=== PATIENT | male | born 1960 | race Caucasian/White ===

== ENCOUNTER 2018-07-12 08:53 | Outpatient (CLI) | payer OTHER, SELFPAY ==
[2018-07-12 11:35] LABS: ALT 67 U/L (12-78); AST 40 U/L (15-37); Albumin 3.7 g/dL (3.4-5.0); Alkaline Phosphatase 57 U/L (46-116); Anion Gap 8.7 mmol/L (3-11); BUN 11 mg/dL (7-18); Bilirubin, Total 0.5 mg/dL (0.2-1.0); CO2 26.3 mmol/L (21.0-32.0); CREATININE 1.05 mg/dL (0.70-1.30); Calcium 9.1 mg/dL (8.5-10.1); Chloride 102 mmol/L (98-107); Cholesterol 157 mg/dL (50-200); Glucose 107 mg/dL (70-100); HDL Cholesterol 36 mg/dL (40-60); LDL CHOLESTEROL 107 mg/dL (<100); Potassium 4.2 mmol/L (3.5-5.1); Sodium 137 mmol/L (136-145); Total Protein 6.9 g/dL (6.4-8.2); Triglyceride 96 mg/dL (30-150); Vitamin B12 426 pg/mL (193-986)
== END 2018-07-12 09:13 ==
PROVIDERS: PCP Family Medicine; Visit Provider Family Medicine
DX: I10 Essential (primary) hypertension (principal); K21.9 Gastro-esophageal reflux disease without esophagitis
CPT/HCPCS: 36415; 80053; 80061; 83721; 82607

== ENCOUNTER 2018-10-05 00:59 | Outpatient (CLI) | payer OTHER, SELFPAY ==
--- NOTE | 2018-10-05 07:50 | DI.RAD_ITS ---
SYMPTOM/DIAGNOSIS: CHRONIC COUGH, R05, SYNCOPE, R55, CONTACT WITH HAZARD SUBSTANCE, CARBON MONOXIDE EXPOSURE, Z77.29 PA AND LATERAL CHEST: No prior comparison chest xrays are available. The heart size is normal. There is no mediastinal widening. There is mild respiratory motion. The lungs appear clear. IMPRESSION: Negative chest xray.
[2018-10-05 08:10] LABS: Carboxyhemoglobin 0.9 %
== END 2018-10-05 01:19 ==
PROVIDERS: PCP Family Medicine; Visit Provider Emergency Medicine
DX: R05 Cough (principal); R55 Syncope and collapse; Z77.29 Contact with and (suspected) exposure to other hazardous substances
CPT/HCPCS: 36415; 82375; 71046

== ENCOUNTER 2019-07-27 07:00 | Outpatient (CLI) | payer OTHER, SELFPAY ==
[2019-07-27 11:15] LABS: HCT 50.9 % (40.0-50.0); HGB 17.4 g/dL (13.5-17.5); Mean Corp. HGB Concentration 34.2 g/dL (32.0-36.0); Mean Corpuscular Hemoglobin 31.5 pg (27.0-33.0); Mean Corpuscular Volume 92.2 fL (80-95); Mean Platelet Volume 9.3 fL (8.0-11.0); Platelet Count 304 x1000/uL (130-400); RBC 5.52 m/cumm (4.50-6.00); RBC Distribution Width 12.5 % (11.8-14.1); White Blood Cell Count 6.52 k/cumm (4.4-10.8)
[2019-07-27 11:54] LABS: ALT 49 U/L (16-63); AST 29 U/L (15-37); Albumin 4.2 g/dL (3.4-5.0); Alkaline Phosphatase 58 U/L (46-116); Anion Gap 9.9 mmol/L (3-11); BUN 14 mg/dL (7-18); Bilirubin, Total 0.7 mg/dL (0.2-1.0); CO2 27.1 mmol/L (21.0-32.0); CREATININE 1.02 mg/dL (0.70-1.30); Calcium 9.3 mg/dL (8.5-10.1); Calculated LDL 103 mg/dL; Chloride 100 mmol/L (98-107); Cholesterol 159 mg/dL (50-200); Glucose 90 mg/dL (70-100); HDL Cholesterol 37 mg/dL (40-60); Potassium 4.3 mmol/L (3.5-5.1); Sodium 137 mmol/L (136-145); Total Protein 7.7 g/dL (6.4-8.2); Triglyceride 99 mg/dL (30-150); Vitamin B12 411 pg/mL (193-986)
== END 2019-07-27 07:20 ==
PROVIDERS: PCP Family Medicine; Visit Provider Family Medicine
DX: D75.1 Secondary polycythemia (principal); K21.9 Gastro-esophageal reflux disease without esophagitis; Z00.00 Encounter for general adult medical examination without abnormal findings
CPT/HCPCS: 36415; 80053; 80061; 85027; 82607

== ENCOUNTER 2020-07-30 09:53 | Outpatient (REF) | payer OTHER, SELFPAY ==
[2020-07-30 21:44] LABS: HCT 51.7 % (40.0-50.0); HGB 17.6 g/dL (13.5-17.5); MCH 31.8 pg (27.0-33.0); MCV 93.3 fL (80-95); MPV 9.9 fL (8.0-11.0); Platelet Count 291 10^3/uL (130-400); RBC 5.54 10^6/uL (4.36-5.78); RDW 12.2 % (11.8-14.1); RDW-SD 42.6 fL; WBC 6.88 10^3/uL (4.4-10.8)
[2020-07-30 22:21] LABS: Hemoglobin A1C 5.4 % (<5.7)
[2020-07-30 22:31] LABS: ALT 53 U/L (16-63); AST 33 U/L (15-37); Albumin 4.1 g/dL (3.4-5.0); Alkaline Phosphatase 60 U/L (46-116); Anion Gap 10.4 mmol/L (3-11); BUN 14 mg/dL (7-18); Bilirubin, Total 0.6 mg/dL (0.2-1.0); CO2 25.6 mmol/L (21.0-32.0); CREATININE 0.92 mg/dL (0.70-1.30); Calcium 9.2 mg/dL (8.5-10.1); Calculated LDL 104 mg/dL (<100); Chloride 102 mmol/L (98-107); Cholesterol 162 mg/dL (<200); Ferritin 337 ng/mL (26-388); Glucose 102 mg/dL (74-106); HDL Cholesterol 37 mg/dL (40-60); Sodium 138 mmol/L (136-145); Total Protein 7.4 g/dL (6.4-8.2); Triglyceride 106 mg/dL (<150)
[2020-08-02 10:57] LABS: PSA, Screening 2.6 ng/mL (0-3.5)
== END 2020-07-30 10:13 ==
LOC: LBN 09:53
PROVIDERS: PCP Family Medicine; Visit Provider Family Medicine
DX: Z00.00 Encounter for general adult medical examination without abnormal findings (principal); Z13.220 Encounter for screening for lipoid disorders; Z13.1 Encounter for screening for diabetes mellitus; Z13.0 Encounter for screening for diseases of the blood and blood-forming organs and certain disorders involving the immune mechanism; Z12.5 Encounter for screening for malignant neoplasm of prostate
CPT/HCPCS: 80053; 80061; 84153; 85027; 82728; 83036

== ENCOUNTER 2020-10-29 00:54 | Outpatient (CLI) | payer OTHER, SELFPAY ==
--- NOTE | 2020-10-29 06:45 | DI.RAD_ITS ---
EXAM: XR SHOULDER RT COMPLETE 2+V CLINICAL HISTORY: r shoulder pain , frozen shoulder,M25.511. TECHNIQUE: 2D digital imaging was performed. COMPARISON: No exams were available for comparison FINDINGS: At the glenohumeral joint, there is a large osteophyte at the inferior humeral head. There is also n arrowing of the glenohumeral joint. Mild hypertrophic changes are seen at the acromioclavicular join t. No acute fracture or dislocation is seen. The bones are normally mineralized. The soft tissues are unremarkable. IMPRESSION: Osteoarthritis of the right shoulder as described. DATA REPOSITORY: RADIATION DOSE DELIVERED:
--- NOTE | 2020-10-29 06:45 | DI.RAD_ITS ---
EXAM: XR KNEE RT 3V AP,LAT,TIFFANIE CLINICAL HISTORY: pain behind patella after kneeling,M25.569. TECHNIQUE: 2D digital imaging was performed. COMPARISON: CR XR CHEST 2V PA LATERAL from 10/05/2018 FINDINGS: There is mild narrowing of the medial femoral tibial joint space. The joint spaces are otherwise wel l maintained. The bones are intact and normally mineralized. No joint effusion is seen. The soft t issues are unremarkable. IMPRESSION: Mild degenerative changes of the right knee. DATA REPOSITORY: RADIATION DOSE DELIVERED:
== END 2020-10-29 00:55 ==
LOC: DI 00:55
PROVIDERS: PCP Family Medicine; Visit Provider Family Medicine
DX: M19.011 Primary osteoarthritis, right shoulder (principal); M17.11 Unilateral primary osteoarthritis, right knee
CPT/HCPCS: 73562; 73030

== ENCOUNTER 2020-12-24 00:53 | Outpatient (CLI) | payer OTHER, SELFPAY ==
--- NOTE | 2020-12-24 08:15 | DI.MRI_ITS ---
CLINICAL HISTORY: SHOULDER PAIN, IMPINGEMENT SYNDROME,M75.41M PRIMARY OA RT SHOULDER,M19.011. TECHNIQUE: Multiplanar multisequence MRI was performed. COMPARISON: None FINDINGS: MR examination of the shoulder was performed according to the usual protocol. There is no significant effusion of the glenohumeral joint. No fluid in the subacromial subdeltoid bu rsa. Bones and labrum: There is severe hypertrophic degenerative change at the glenohumeral joint with sig nificant widening and flattening of the articular surfaces secondary to prominent osteophyte formatio n, particularly at the inferior articular margins of the bones. There is subchondral cyst formation in the glenoid both superiorly and inferiorly. The labrum is effaced and there appears to be tearing of the superior labrum presumably chronic.. There is marked articular cartilage thinning of humeral head. There are prominent hypertrophic degenerative changes of the acromioclavicular joint noted as well. Rotator cuff: The rotator cuff musculature appears well maintained with no significant fatty replace ment. Infraspinatus tendon shows a few focal areas of possible intrasubstance tears in its distal extent. A few areas of intrasubstance and inferior surface tearing are present in the distal supraspinatus te ndon and there may be minimal superior surface tearing as well. No definite full-thickness tear or r etracted tear. Mildly abnormal signal noted in subscapularis with perhaps slight superior surface fr aying. Teres minor unremarkable. Rotator interval structures are unremarkable with no evidence of a tear. Biceps tendon and anchor: Biceps tendon and anchor show normal signal and no evidence of a tear. Shahab ps tendon is normally positioned in the bicipital groove. IMPRESSION: Severe degenerative changes of the glenohumeral joint as described above with very prominent hypertro phic marginal osteophytes particularly inferiorly. Presumed associated labral effacement and tears. Fairly well maintained rotator cuff musculature, some minor predominantly intrasubstance tearing is n oted in supraspinatus and perhaps infraspinatus. Minimal fraying of sub scapularis superiorly. DATA REPOSITORY:
== END 2020-12-24 01:13 ==
PROVIDERS: PCP Family Medicine; Visit Provider Student in an Organized Health Care Education/Training Program
DX: M25.511 Pain in right shoulder (principal); M75.41 Impingement syndrome of right shoulder; M19.011 Primary osteoarthritis, right shoulder
CPT/HCPCS: 73221

== ENCOUNTER 2021-01-13 03:42 | Outpatient (CLI) | payer OTHER, SELFPAY ==
[2021-01-14 12:50] LABS: COVID-19 RT-PCR UVMMC Result Negative (Negative)
== END 2021-01-13 03:43 | disposition home or self-care (01) ==
LOC: LBO 03:42
PROVIDERS: PCP Family Medicine; Visit Provider Family Medicine
DX: Z20.822 Contact with and (suspected) exposure to COVID-19 (principal)
CPT/HCPCS: U0003

== ENCOUNTER 2021-02-12 03:07 | Outpatient (CLI) | payer OTHER, SELFPAY ==
[2021-02-12 11:39] LABS: Source Nasal/Nares
[2021-02-12 16:05] LABS: COVID-19 PCR Negative (Negative)
== END 2021-02-12 03:08 | disposition home or self-care (01) ==
PROVIDERS: PCP Family Medicine; Visit Provider Student in an Organized Health Care Education/Training Program
DX: Z20.822 Contact with and (suspected) exposure to COVID-19 (principal); Z01.818 Encounter for other preprocedural examination
CPT/HCPCS: 87635

== ENCOUNTER 2021-02-14 06:12 | Day surgery (SDC) | payer OTHER, SELFPAY ==
[2021-02-14] VITALS (10 sets, daily range): BP systolic 104–148; BP diastolic 70–108; PULSE 82–96; RESP 13–28; TEMP 36.4–36.6; O2SAT 90–97; BMI 38.8
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
[2021-02-14] MEDS: Lactated Ringers 1,000 ML 100 ML IV (07:09)
[2021-02-14] MEDS: ceFAZolin 3,000 MG in Normal Saline 100 ML 200 MG IVPB (08:01)
[2021-02-14] MEDS: EPINEPHrine 30 MG/30 ML VIAL (10:05)
--- NOTE | 2021-02-14 10:52 | PDOC.DSDIS_ITS ---
Discharge Plan Disposition Patient Disposition: HOME Condition: Stable Discharge Details Reason For Visit: Right shoulder surgery Attending Provider: Edis Ramos Primary Care Provider: Svitlana Norton Home Meds and New Rx's Prescriptions: New naproxen 250 mg tablet 250 - 500 mg PO BID PRN (Reason: Moderate pain or swelling) Qty: 60 RF: 0 aspirin 81 mg tablet,delayed release (DR/EC) 81 mg PO DAILY 14 Days Qty: 14 RF: 0 oxycodone 5 mg tablet 5 - 10 mg PO Q4H PRN (Reason: moderate to severe pain) Qty: 18 RF: 0 Continued lisinopril-hydrochlorothiazide 20-25 mg tablet 1 tab PO DAILY Qty: 90 RF: 4 omeprazole 20 mg capsule,delayed release(DR/EC) 20 mg PO DAILY PRN (Reason: gerd) Qty: 90 RF: 4 Discharge Instructions Additional Instructions: Surgery: Shoulder arthroscopy with extensive debridement including inferior humeral osteoplasty, contracture release, subacromial decompression, and manipulation under anesthesia Activity: You should gradually increase range of motion motion and use of your shoulder. Please perform daily stretching exercises. You may use your shoulder for all regular activities. Avoid heavy lifting, reaching overhead, and lifting away from body for approximately 6 weeks. You may use the sling whenever you are out of the house for a few weeks. At home it is best to remove the sling and rest the arm on a pillow at your side or support the operative side with your other hand. A physical therapy prescription will be sent electronically to start in about 2 weeks. Prescriptions: Aspirin 81 mg take 1 daily to prevent a blood clot for 2 weeks Naproxen 250 mg take 1-2 every 12 hours with a meal as needed for moderate pain Oxycodone 5 mg take 1-2 every 4-6 hours as needed for severe pain You may use [id number]-xruwdys Tylenol (acetaminophen) as needed for mild pain. These pain medications may be taken all at once or in different combinations as needed. Also, recommend Colace (docusate) as a stool softener as surgery and pain medicine cause constipation. Dressings: Remove shoulder bandage after 3 days. Leave the sticky Steri-Strips in place until they fall off or remove them after you shower. Cover the incisions with Band-Aids or leave them open to air. You may shower after 5 days. Follow-up: 10-14 days with an orthopedic physician recovery assistant (10:00 AM on 02/26/21) and [address] Ramos You may take off the leg compression stockings this evening at home. You may also leave them on a few days longer if you have a history of leg swelling or edema. Let us know right away if you develop any redness, drainage, fevers, chest pain, or trouble breathing. Do not drink alcohol or drive for at least 24 hours after anesthesia. Please call the office during business hours with any questions or concerns. Referrals: Edis Ramos MD [ [facility] STAFF PHYSICIAN] - Discharge Orders Discharge Orders: Discharge Order (Routine); Ordered 02/14/21 Ordered By: Edis Ramos DS: Diagnosis Discharge Diagnosis (1) Bursitis of right shoulder: Status: Acute (2) Contracture of right shoulder: Status: Acute (3) Primary osteoarthritis, right shoulder: Status: Acute
[2021-02-14] MEDS: Midazolam 2 MG/2 ML VIAL IVP (11:13)
--- NOTE | 2021-02-14 11:14 | ROE_ITS ---
Date of service: 02/14/21 Time of Service: 08:00 Operative Note Operative Note DATE OF PROCEDURE: 02/14/21 PRE-OP DIAGNOSIS: Right shoulder: 1. Glenohumeral arthritis 2. Contracture 3. Bursitis POST-OP DIAGNOSIS: same PROCEDURE: Right shoulder: 1. Extensive debridement, CPT# 05332. This involved using arthroscopic hand instruments, power instruments, and radiofrequency instruments to release to debride areas of labral tearing, synovitis, and chondromalacia about the humeral head and glenoid and glenoid within the glenohumeral joint anteriorly, superiorly and posteriorly. Additionally, the MGHL was released as part of an anterior contracture release and a large inferior humeral osteoplasty was performed. 2. Subacromial decompression, CPT# 97401. This involved using arthroscopic power instruments and a radiofrequency wand to complete a bursectomy. 3. Manipulation under anesthesia, CPT# 81521. This involved post?arthroscopy gentle guided manipulation in all directions to optimize shoulder range of motion. The assistant activities director was medically required in order to help assist in techniques above, which require positioning the arm, holding the arthroscope, and manipulating multiple instruments and sutures at the same time. This cannot be done without the help of an experienced assistant activities director. SURGEON: Edis Ramos RESPITE CARE PROVIDER: Moni Pink ANESTHESIA TYPE: General LMA/ETT and Primary Nerve Block Refer to Anesthesia Record ESTIMATED BLOOD LOSS: 10 PATHOLOGY: none sent COMPLICATIONS: None Patient was transported to: PACU Patient's condition: stable Implants: None Indications: The patient was diagnosed with the above conditions and appropriately indicated for surgical intervention. Please see complete medical record for details. Findings: Exam under anesthesia: Limited range of motion with a rigid endpoints about 95 degrees forward elevation and 20 degrees external rotation with internal rotation to the side with significant glenohumeral mechanical crepitation. Contralateral shoulder demonstrated full range of motion 145 degrees forward elevation, 85 degrees to rotation, 75 degrees internal rotation. Glenohumeral joint: Abundant, profound synovitis throughout anterior superior and posterior. Minimal upper and articular sided subscapularis fraying. [facility] L widening thickening contracture over subscapularis. Largely intact articular supraspinatus infraspinatus. Global articular cartilage degeneration mostly grade 2?3 with localized grade 1 and 4 areas as well. Unstable cartilage flaps central and posterior glenoid. Grade 4 cartilage loss anterior and anterior- inferior glenoid near majority of degenerative labral fraying with less significant labral fraying superiorly and posteriorly. Large inferior humeral head goats diaz type osteophyte. No loose bodies. Subacromial space: Significant bursitis. Minimal acromial bone spur. Intact bursal rotator cuff. Procedure Description: In the operating room, general anesthesia was induced. Bilateral shoulders were examined. The patient was positioned in the beachchair position. All bony prominences were well-padded. Preoperative antibiotics were administered. The shoulder was prepped and draped in the usual sterile fashion. The correct patient, procedure, and side of the procedure were all verified prior to incision. For this CAM type shoulder debridement, the standard posterior viewing portal was positioned more medially and superiorly to allow adequate working space for the planned posterior inferior lateral portal. Under direct visualization the anterior portal was made more inferiorly over the subscapularis to aid in potential inferior work. Starting through the posterior portal a standard complete diagnostic arthroscopy was performed of the glenohumeral joint incl uding inspection of the long head of the biceps, anterior and superior labrum, subscapularis tendon, supraspinatus and infraspinatus tendons, and axillary recess. The glenoid and humeral head cartilage as well as the posterior labrum were inspected from an anterior viewing portal. Significant findings and interventions noted above. The biceps tendon was preserved given lack of clinical symptoms and relatively benign appearance intra-articularly and at the biceps tendon superior labral anchor. While viewing from anteriorly, and triangulating with switching stick, a spinal needle was placed for the planned posterior inferior lateral axillary recess working portal. A switching stick was then inserted and this portal was then carefully dilated. Half pipe sled was used with the protective side down for instrument insertion for the entirety of the axillary recess portion of the case. Mechanical shaver was brought in posteriorly inferiorly and the camera was brought into the posterior viewing portal. Together both instruments were brought into the axillary recess which was filled with synovitis and osteophyte. Carefully the synovitis was debrided to expose the bone spur with the arm optimally positioned as necessary in various amounts of flexion extension and internal/external rotation. Care was taken to use minimal suction and direct the mechanical shaver always superiorly toward the bone away from any inferior capsular tissue to avoid injuring the axillary nerve. After exposure of part of the bone spur, mechanical shaver was then used to start debridement of the infer ior humeral head osteophyte. This inferior humeral osteoplasty was continued with the assistant activities director optimizing shoulder position. Visualization and access were improved as resection proceeded allowing more space and more thorough resection of synovitis and the bone spur. The round bur and then large shaver were then brought in each over the half pipe and used to optimize bony resection contouring to a relatively normal inferior humeral head neck margin. The radiofrequency ablator was used minimally in the axillary recess only as necessary on bone for hemostasis. The inferior space did contract when using the ablator a few times likely owing to axillary nerve branch proximity even while working on bone. There was no direct contracture of the deltoid muscle. Complete resection of the bone spur was confirmed through significant arm flexion extension and internal/external rotation. The mechanical shaver and agitation of the armpit were used to ensure removal of all bony debris while ag ain working with the shaver only as marked suction as necessary on bone to prevent any nerve injury. The axillary nerve was not exposed and the inferior capsule was left intact with plan for manipulation to restore forward elevation after resection of this large bone spur. Back in the glenohumeral joint working and viewing portals were switched anteriorly posteriorly now with more space as synovitis was resected and the humeral head and capsule were more poorly distended with removal of the prior bone spur. Anteriorly, arthroscopic scissors were used to release the [facility] L over the subscapularis. Minimal subscapularis bulbous partial tearing was also smoothed to a regular contour. Under direct visualization the arm easily had external rotation at the patient's side to 85 degrees with no additional anterior capsular contracture. Posteriorly the viewing portal was slightly extended superiorly and inferiorly as part of a small posterior capsular release as the patient did not have significant internal rotation loss. Glenohumeral joint was visualized from Chama view and the mechanical shaver was used to ensure all debrided material had been removed and cartilage flaps trimmed to stable margins. Rotator cuff was again inspected and found to be largely intact. Glenohumeral joint was drained of arthroscopic fluid. Starting through the posterior portal, the arthroscope was directed into the subacromial space. A lateral 50 yard line lateral portal was created. A combination of power instruments and a radiofrequency ablator were used to debride bursitis anteriorly, posteriorly, and laterally as well as expose the undersurface of the acromion which had minimal bone spurring did not require bone removal. The coracoacromial ligament was preserved. The bursectomy was c ompleted viewing laterally and working from posteriorly and the rotator cuff was thoroughly inspected with findings noted above. The subacromial space was drained of arthroscopic fluid. The scapula was stabilized in the shoulder was manipulated under anesthesia using a short fulcrum humerus as a lever arm over the scapula and acromion. External rotation was to about 90 degrees at the side with minimal additional release. Forward elevation was initially limited around 115 degrees but on repeat manipulation in forward flexion and abduction steady guided inferior release was gently performed allowing forward elevation to test 135 degrees. Internal rotation was past 75 degrees. Internal/external rotation in 90 degrees of abduction were then performed to about 90 and 75 completing manipulation. The arm was then guided in all directions especially forward elevation with gentle steady pressure on the spring endpoint over a dozen times ensuring proper release. Mechanical crepitation especially about the inferior joint with circumduction was resolved. There was no stiff mechanical block to motion. All portal sites were copiously irrigated. These incisions were closed using 3- 0 Monocryl in a buried fashion, covered with Mastisol, Steri-Strips, Xeroform, dry gauze, and ABDs. The dressings were covered and secured with Medipore tape. The operative extremity was placed into a sling for immobilization. The patient awoke from anesthesia without complication and was transferred to the recovery room in a stable condition.
[2021-02-14] MEDS: fentaNYL 100 MCG/2 ML VIAL IVP ×2 (11:19→11:23)
--- NOTE | 2021-02-14 12:52 | W.ANESPOSTOP ---
Postoperative Evaluation Date, Time and Location Date Performed: 02/14/21 Time Performed: 12:52 Patient Location: Day Surgery Unit Vital Signs Most Recent Imported Vital Signs: Most Recent Vital Signs Temp Pulse Resp BP Pulse Ox 36.5 C 84 16 104/70 94 02/14/21 12:46 02/14/21 12:46 02/14/21 12:46 02/14/21 12:46 02/14/21 12:46 Pain Score Most Recent Pain Score: Most Recent Pain Score Pain Level 0 02/14/21 12:12 Assessment Mental Status: Awake (Alert & Oriented to Patient Baseline) Airway and Respiratory Function: Patent airway with normal (patient baseline) respiratory exam Cardiovascular Function: Hemodynamically Stable Hydration Status: Adequately Hydrated Nausea & Vomiting: No Nausea or Vomiting Pain: Pt. Denies Any Pain Peripheral Nerve Block: Patient did not receive a nerve block
--- NOTE | 2021-02-28 10:14 | W.ANESNERVE ---
Nerve Block Single Injection Procedure Date and Time Date Performed: 02/14/21 Procedure Start: 07:20 Location Where Procedure Performed Procedure Location: PACU Reason Performed: Postoperative Analgesia Requesting Provider: Rachel Timeout Performed Timeout Performed: Yes Monitoring Used ECG, Blood Pressure, SpO2 and ETCO2 Sterility Sterility: Hand Hygiene, Surgical Cap, Surgical Mask, Sterile Gloves, Eye Protection and Chlorhexidine Sedation Given During Procedure Sedation Given (Indicate Dose Given): Versed IV Dose:: 2 mg Patient Mental Status Patient Mental Status: Sedate with meaningful communication Nerve Block 1st Nerve Block: Laterality: Right Block Type: Interscalene Needle / Catheter Used: 100mm SonoPlex II Local Anesthetic Bolus (Indicate Dose Given): Lidocaine used for local infiltration of skin, Injected in 3-5ml increments after negative blood aspiration, Bupivacaine 0.5% Dose:: 10 cc and Exparel Dose:: 10cc Additives (Indicate Dose Given): None Ultrasound: Sterile probe cover and gel used Ultrasound Image Saved?: Yes Nerve Stimulator: Not Used Paresthesia: None Procedure Tolerated: No Complications and Patient tolerated well Procedure Outcome: Successful Performed By: Tomi Jensen
== END 2021-02-14 13:15 | disposition home or self-care (01) ==
PROVIDERS: PCP Family Medicine; Visit Provider Student in an Organized Health Care Education/Training Program
PROC: (CPT 29805; principal; 2021-02-14 07:30)
DX: M75.51 Bursitis of right shoulder (principal); M24.511 Contracture, right shoulder; M19.011 Primary osteoarthritis, right shoulder
CPT/HCPCS: 29826; 29823; 23700; 76942; J0131; J0690; J1100; J1885; J2001; J2250; J2405; J3010

== ENCOUNTER 2021-03-26 13:42 | Outpatient (CLI) | payer OTHER, SELFPAY ==
--- NOTE | 2021-03-26 13:30 | DI.RAD_ITS ---
Exam(s) XR SHOULDER RT COMPLETE 2+V EXAM: XR SHOULDER RT COMPLETE 2+V CLINICAL HISTORY: F/U. TECHNIQUE: 2D digital imaging was performed. COMPARISON: CR XR SHOULDER RT COMPLETE 2+V from 10/29/2020 FINDINGS: Moderate degenerative changes are seen at both the acromioclavicular and glenohumeral joints. The fi ndings are most marked at the glenohumeral joint. No acute fracture or dislocation. The bones are n ormally mineralized. Soft tissues are unremarkable. IMPRESSION: Moderate osteoarthritis of the right shoulder. DATA REPOSITORY: RADIATION DOSE DELIVERED:
== END 2021-03-26 13:43 | disposition home or self-care (01) ==
LOC: DIORS 13:42
PROVIDERS: PCP Family Medicine; Referring Provider Family Medicine; Visit Provider Student in an Organized Health Care Education/Training Program
DX: M19.011 Primary osteoarthritis, right shoulder (principal); Z98.890 Other specified postprocedural states
CPT/HCPCS: 73030

== ENCOUNTER 2021-08-22 18:53 | Outpatient (REF) | payer OTHER, SELFPAY ==
[2021-08-24 01:39] LABS: COVID-19 RT-PCR UVMMC Result Negative (Negative)
== END 2021-08-22 18:54 | disposition home or self-care (01) ==
LOC: LBN 18:53
PROVIDERS: PCP Family Medicine; Visit Provider Family Medicine
DX: Z20.822 Contact with and (suspected) exposure to COVID-19 (principal); R50.9 Fever, unspecified
CPT/HCPCS: U0003

== ENCOUNTER 2021-08-28 12:21 | Outpatient (REF) | payer OTHER, SELFPAY ==
[2021-08-30 12:14] LABS: COVID-19 RT-PCR UVMMC Result Positive (Negative)
== END 2021-08-28 12:22 | disposition home or self-care (01) ==
LOC: LBN 12:21
PROVIDERS: PCP Family Medicine; Visit Provider Family Medicine
DX: Z20.822 Contact with and (suspected) exposure to COVID-19 (principal)
CPT/HCPCS: U0003

== ENCOUNTER 2021-08-29 06:18 | Emergency (ER) | payer OTHER, SELFPAY ==
[2021-08-29] VITALS (46 sets, daily range): BP systolic 109–168; BP diastolic 76–105; PULSE 97–132; RESP 13–30; TEMP 37.7; O2SAT 90–96
--- NOTE | 2021-08-29 06:30 | RT.EKG_ITS ---
APPROVED REPORT Exam: Resting ECG Reason for Exam: cough, syncope Patient Location: E HR:128 bpm ECG Measurements Heart Rate 128 AXIS WV 143 P 21 QRSd 87 QRS -7 QT 313 T 18 QTc 458 Conclusion Sinus tachycardia...rate> 99 Physician: Rate 128, intervals normal, sinus tachycardia, no significant ST elevation or depression. No evidence of STEMI
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
[2021-08-29] MEDS: Lidocaine/Epinephri/Tetracaine Topical Gel 3 ML TP (07:01)
[2021-08-29] MEDS: Normal Saline 1,000 ML 1000 ML IV ×2 (07:02→10:09)
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
[2021-08-29 07:07] LABS: Source Nasal/Nares
[2021-08-29 07:12] LABS: Abs Immature Grans 0.07 10^3/uL (0.0-0.06); Absolute Basophil Count 0.14 10^3/uL (0.0-0.2); Absolute Eosinophil Count 0.91 10^3/uL (0.0-0.7); Absolute Lymphocyte Count 0.52 10^3/uL (1.2-3.4); Absolute Monocyte Count 1.17 10^3/uL (0.1-0.8); Absolute Neutrophil Count 5.23 10^3/uL (1.2-6.7); Basophils % 1.7; Eosinophils % 11.3; HCT 49.8 % (40.0-50.0); HGB 16.8 g/dL (13.5-17.5); Immature Grans % 0.9; Lymphocytes % 6.5; MCH 31.2 pg (27.0-33.0); MCHC 33.7 % (32.0-36.0); MCV 92.6 fL (80-95); MPV 8.8 fL (8.0-11.0); Monocytes % 14.6; Nucleated RBC 0 %; Platelet Count 309 10^3/uL (130-400); RBC 5.38 10^6/uL (4.36-5.78); RDW 11.9 % (11.8-14.1); RDW-SD 41.1 fL; WBC 8.04 10^3/uL (4.4-10.8)
[2021-08-29 07:17] LABS: BE (Venous) 5 mmol/L (-2-3); HCO3 (Venous) 28 mmol/L (23-28); O2 Sat (Venous) 88 %; TCO2 (Venous) 24 mmol/L (24-29); pCO2 (Venous) 39 mmHg (41-51); pH (Venous) 7.47 (7.31-7.41); pO2 (Venous) 51 mmHg
[2021-08-29 07:19] LABS: Lactate 0.8 mmol/L (0.6-1.4)
[2021-08-29] MEDS: PIPERACILLIN/TAZO 4.5 GM in Normal Saline 100 ML IVPB (07:36)
[2021-08-29 07:49] LABS: ALT 67 U/L (16-63); AST 47 U/L (15-37); Albumin 3.9 g/dL (3.4-5.0); Alkaline Phosphatase 58 U/L (46-116); Anion Gap 9.4 mmol/L (3-11); BUN 14 mg/dL (7-18); Bilirubin, Total 0.3 mg/dL (0.2-1.0); CO2 27.6 mmol/L (21.0-32.0); CREATININE 0.9 mg/dL (0.70-1.30); Chloride 99 mmol/L (98-107); Glucose 132 mg/dL (74-106); NT-proBNP 34 pg/mL (<300); Potassium 3.1 mmol/L (3.5-5.1); Sodium 136 mmol/L (136-145); Total Protein 7.8 g/dL (6.4-8.2)
[2021-08-29 07:51] LABS: Troponin I < 0.05 ng/mL (<0.06)
[2021-08-29 08:03] LABS: COVID-19 PCR Positive (Negative)
[2021-08-29] MEDS: Omnipaque 350 MG/ML 100 ML BTL IJ ×2 (08:33→08:47)
[2021-08-29] MEDS: Normal Saline Flush 10 ML SYR IVP ×2 (08:39→08:55)
--- NOTE | 2021-08-29 08:45 | DI.CT_ITS ---
Exam(s) CT CHEST PE CTA EXAM: CT CHEST PE CTA CLINICAL HISTORY: syncope, cough, sob, hypoxic. TECHNIQUE: Imaging Protocol: Axial CT angiography was performed with multi-slice acquisition and mu lti-planar and/or 3D reconstructions. The exam was repeated due to patient motion artifact. CONTRAST MATERIAL: Intravenous: Omnipaque 350 Contrast volume:184 mL COMPARISON: No exams were available for comparison FINDINGS: The examination is limited due to patient motion artifact. Tracheobronchial tree: Patent where visualized. Pulmonary parenchyma: There is a 3 mm nodule in the right middle lobe. No architectural distortion. There is a small infiltrate in the right lung base. Pulmonary Arteries: The pulmonary arteries are not ideally opacified for evaluation of pulmonary embo li particularly peripherally. There is no evidence of a central pulmonary embolus. Mediastinum and Tami: No dominant adenopathy or fluid collection. The esophagus is unremarkable. Visualized thyroid gland: Unremarkable. Pleura: No effusion or pneumothorax. Heart: The heart is not dilated. No coronary artery calcifications are seen. No pericardial effusion. Aorta: Thoracic aorta non-dilated. No evidence of dissection. Upper abdomen: Fatty liver. There is a 1.6 cm hypodense lesion in the right lobe of the liver. Thi s may represent a cyst. Follow-up with hepatic ultrasound is recommended. Soft tissues: Unremarkable. Bones: Within normal limits for the patient's age. IMPRESSION: 1. Suboptimal opacification of pulmonary arteries which limits evaluation of the peripheral pulmonary arteries.. No evidence of a central pulmonary artery embolism. 2. No evidence of aortic dissection or aneurysm. 3. 3 mm right middle lobe pulmonary nodule. In high risk patients (history of smoking or other risk factors), a CT scan of the chest in 12 months is recommended. 4. Small right basilar infiltrate. This may represent atelectasis or pneumonia. 5. 1.6 cm hypodense lesion in the right lobe of the liver. Though this may represent a cyst, a follo w-up abdominal ultrasound is recommended. 6. Results of this exam have been verbally communicated with provider. RADIATION DOSE DELIVERED: 1,198.92mGy.cm Total DLP DATA REPOSITORY: All CT scans at this facility are submitted to the National Radiology Data Registry (NRDR) Dose Index Registry (DIR) with the [employer] (ACR). RADIATION OPTIMIZATION: All CT scans at this facility use at least one of these dose optimization te chniques: automated exposure control; mA and/or kV adjustment per patient size (includes targeted exa ms where dose is matched to clinical indication); or iterative reconstruction.
[2021-08-29] MEDS: VANCOMYCIN/WATER (PEG) 2 GM/400 ML BAG IVPB (08:55)
[2021-08-29] MEDS: DOXYCYCLINE 100 MG in Normal Saline 100 ML IVPB (08:55)
[2021-08-29] MEDS: POTASSIUM CHLORIDE 20 MEQ/100 ML BAG 50 MEQ IVPB (09:02)
[2021-08-29] MEDS: Dexamethasone 10 MG/ML VIAL IVP (10:09)
[2021-08-29 10:40] LABS: Troponin I < 0.05 ng/mL (<0.06)
== END 2021-08-29 12:14 | disposition home or self-care (01) ==
PROVIDERS: Student in an Organized Health Care Education/Training Program; Emergency Provider Emergency Medicine; PCP Family Medicine
DX: U07.1 COVID-19 (principal); R55 Syncope and collapse; R53.83 Other fatigue; R09.02 Hypoxemia; R06.82 Tachypnea, not elsewhere classified; R91.8 Other nonspecific abnormal finding of lung field; R50.9 Fever, unspecified; S01.21XA Laceration without foreign body of nose, initial encounter; W18.39XA Other fall on same level, initial encounter
CPT/HCPCS: 36415; 71275; 80053; 82805; 87040; 87449; 87635; 93005; 96361; 96365; 96366; 96367; 96368; 96375; 99291; 70450; 70486; 72125; 83605; 83735; 83880; 84443; 84484; 85025; 93010; J1100; J2543; J3480; J3490

== ENCOUNTER 2021-09-09 06:14 | Inpatient (IN) | payer OTHER, SELFPAY ==
[2021-09-09] VITALS (125 sets, daily range): BP systolic 102–155; BP diastolic 68–118; PULSE 84–140; RESP 13–38; TEMP 36.3–37.1; O2SAT 79–97
--- NOTE | 2021-09-09 06:15 | RT.EKG_ITS ---
APPROVED REPORT Exam: Resting ECG Reason for Exam: short of breath Patient Location: E HR:130 bpm ECG Measurements Heart Rate 130 AXIS [place] 123 P 44 QRSd 83 QRS 24 QT 313 T 25 QTc 461 Conclusion Sinus tachycardia...rate> 99 Multiform ventricular premature complexes...short R-R, variable morphology Aberrant conduction of SV complex(es)...aberrant shape, MN 80-220 PHysician: no stemi, unchanged from prior ekg
--- NOTE | 2021-09-09 06:30 | DI.CT_ITS ---
Exam(s) CT CHEST PE CTA EXAM: CT CHEST PE CTA CLINICAL HISTORY: covid +, hypoxic, CP, SOB. TECHNIQUE: Imaging Protocol: Axial CT angiography was performed with multi-slice acquisition and mu lti-planar and/or 3D reconstructions. CONTRAST MATERIAL: Intravenous: Omnipaque 350 Contrast volume:100 mL COMPARISON: CT CT CHEST PE CTA from 08/29/2021 FINDINGS: Tracheobronchial tree: Patent where visualized. Pulmonary parenchyma: Significant worsening of the ground-glass opacities distributed throughout the lungs consistent with worsening pneumonia. No architectural distortion. Pulmonary Arteries: No evidence of filling defect to suggest pulmonary emboli. Mediastinum and Tami: Mildly enlarged mediastinal and hilar lymph nodes which are likely reactive. T here is a small hiatal hernia. The esophagus is otherwise unremarkable. Visualized thyroid gland: Unremarkable. Pleura: No effusion or pneumothorax. Heart: The heart is not dilated. No coronary artery calcifications are seen. No pericardial effusion. Aorta: Thoracic aorta non-dilated. No evidence of dissection. Upper abdomen: Unremarkable. Soft tissues: Unremarkable. Bones: Within normal limits for the patient's age. IMPRESSION: 1. No evidence of pulmonary embolism, thoracic aortic dissection or aneurysm. 2. Significant progression of the ground-glass opacities since 08/29/2021 consistent with worsening p neumonia. The findings would be consistent with a COVID-19 pneumonia. 3. Findings were discussed with the hospitalist on the date of the examination. RADIATION DOSE DELIVERED: 525.05mGy.cm Total DLP DATA REPOSITORY: All CT scans at this facility are submitted to the National Radiology Data Registry (NRDR) Dose Index Registry (DIR) with the [employer] (ACR). RADIATION OPTIMIZATION: All CT scans at this facility use at least one of these dose optimization te chniques: automated exposure control; mA and/or kV adjustment per patient size (includes targeted exa ms where dose is matched to clinical indication); or iterative reconstruction.
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
[2021-09-09 06:47] LABS: Lactate 2.3 mmol/L (0.6-1.4)
[2021-09-09 06:49] LABS: Abs Immature Grans 0.05 10^3/uL (0.0-0.06); Absolute Basophil Count 0.01 10^3/uL (0.0-0.2); Absolute Eosinophil Count 0.06 10^3/uL (0.0-0.7); Absolute Lymphocyte Count 0.96 10^3/uL (1.2-3.4); Absolute Monocyte Count 0.62 10^3/uL (0.1-0.8); Absolute Neutrophil Count 9.37 10^3/uL (1.2-6.7); Basophils % 0.1; Eosinophils % 0.5; HCT 51.3 % (40.0-50.0); HGB 17.4 g/dL (13.5-17.5); Immature Grans % 0.5; Lymphocytes % 8.7; MCH 31.2 pg (27.0-33.0); MCHC 33.9 % (32.0-36.0); MCV 92.1 fL (80-95); MPV 8.9 fL (8.0-11.0); Monocytes % 5.6; Neutrophils % 84.6; Nucleated RBC 0 %; Platelet Count 421 10^3/uL (130-400); RBC 5.57 10^6/uL (4.36-5.78); RDW 11.9 % (11.8-14.1); RDW-SD 40.7 fL; WBC 11.07 10^3/uL (4.4-10.8)
[2021-09-09] MEDS: Dexamethasone 10 MG/ML VIAL IVP (06:49)
[2021-09-09] MEDS: Omnipaque 350 MG/ML 100 ML BTL IJ (06:52)
[2021-09-09 07:03] LABS: INR 1.1 (0.9-1.1); PTT Activated 23.7 sec (21.0-27.5); Prothrombin Time 10.8 sec (9.3-11.0)
[2021-09-09 07:06] LABS: ALT 37 U/L (16-63); AST 42 U/L (15-37); Albumin 2.8 g/dL (3.4-5.0); Alkaline Phosphatase 57 U/L (46-116); Anion Gap 9.3 mmol/L (3-11); BUN 21 mg/dL (7-18); Bilirubin, Total 0.8 mg/dL (0.2-1.0); CO2 28.7 mmol/L (21.0-32.0); CREATININE 1.1 mg/dL (0.70-1.30); Calcium 8.8 mg/dL (8.5-10.1); Chloride 100 mmol/L (98-107); Glucose 117 mg/dL (74-106); Potassium 3.5 mmol/L (3.5-5.1); Sodium 138 mmol/L (136-145); Total Protein 7.4 g/dL (6.4-8.2)
[2021-09-09 07:12] LABS: NT-proBNP 102 pg/mL (<300); Troponin I < 50 ng/L (<or=60)
[2021-09-09] MEDS: Albuterol/Ipratropium 3 ML UPD VIAL UPD (07:14)
[2021-09-09] MEDS: Normal Saline 500 ML IV (07:15)
[2021-09-09 07:18] LABS: Procalcitonin 0.1 ng/mL
[2021-09-09 08:29] LABS: Influenza A PCR Negative (Negative); Influenza B PCR Negative (Negative); RSV PCR Negative (Negative)
[2021-09-09 08:38] LABS: BE (Venous) 2 mmol/L (-2-3); HCO3 (Venous) 26 mmol/L (23-28); O2 Sat (Venous) 97 %; TCO2 (Venous) 22 mmol/L (24-29); pCO2 (Venous) 33 mmHg (41-51); pO2 (Venous) 94 mmHg
[2021-09-09 08:43] LABS: COVID-19 PCR POSITIVE (Negative)
[2021-09-09] MEDS: REMDESIVIR 200 MG in Normal Saline 250 ML 250 MG IVPB (09:00)
[2021-09-09] MEDS: Cholecalciferol (Vitamin D3) 1,000 UNIT TAB 2000 UNITS PO (10:43)
[2021-09-09] MEDS: Famotidine 20 MG TAB PO ×2 (10:43→20:31)
[2021-09-09] MEDS: Enoxaparin 40 MG/0.4 ML SYR SC (10:44)
[2021-09-09] MEDS: Zinc Sulfate 220 MG TAB PO (10:44)
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
[2021-09-09] MEDS: cefTRIAXone 2 GM/50 ML BAG IVPB (11:30)
[2021-09-09 12:02] LABS: C-Reactive Protein 10.24 mg/dL (0.0-0.3); Creatine Kinase 82 U/L (39-308)
--- NOTE | 2021-09-09 12:08 | PHA.REVIEW ---
Pharmacy Admission Review - Admission Clinical Review (Last Updated 09/09/21 @ 11:58 by Bienvenido Holloway) Acute hypoxemic respiratory failure (Acute) COVID-19 (Acute) Acute respiratory distress (Acute) lisinopril Adverse Reaction (Intermediate, Verified 09/09/21 07:33) cough Resuscitation Status Full Code Height 5 ft 8 in Weight 113.398 kg - Renal Dosing Renal Dosing: BUN 21 mg/dL (7-18) H 09/09/21 06:35 Creatinine 1.1 mg/dL (0.70-1.30) 09/09/21 06:35 Medications needing adjustments: Reviewed (SCr: 1.1, CrCl~87.3mL/min (using adjusted body weight). All meds okay.) - Anticoagulation Anticoagulation: Hgb 17.4 g/dL (13.5-17.5) 09/09/21 06:35 Hct 51.3 % (40.0-50.0) H 09/09/21 06:35 Plt Count 421 10^3/uL (130-400) H 09/09/21 06:35 INR 1.1 (0.9-1.1) 09/09/21 06:35 Creatinine 1.1 mg/dL (0.70-1.30) 09/09/21 06:35 DVT Prophylaxis: Reviewed Medications: Enoxaparin (Enoxaparin 40mg SC Q24H) - Opiate Usage Evaluate Pain Scale/Pains Meds: N/A (No opiates this admission.) - Relevant Labs Sodium 138 mmol/L (136-145) 09/09/21 06:35 Potassium 3.5 mmol/L (3.5-5.1) 09/09/21 06:35 Chloride 100 mmol/L (98-107) 09/09/21 06:35 C-Reactive Protein 10.24 mg/dL (0.0-0.3) H 09/09/21 11:34 Electrolytes, C-Reactive P, ESR: Reviewed - DM Control DM Control: Glucose 117 mg/dL (74-106) H 09/09/21 06:35 Insulin Dosing: N/A - Heart Failure/ME Heart Failure/ME: Troponin I < 50 ng/L (<or=60) 09/09/21 06:35 NT-Pro-B Natriuret Pep 102 pg/mL (<300) 09/09/21 06:35 EF%, LAYO's, B-Blockers, Diuretics: N/A - BP Control BP Control: Blood Pressure [Left Arm] 113/84 Blood Pressure 124/83 Blood Pressure 117/82 Blood Pressure 118/78 Blood Pressure 125/81 Blood Pressure 113/84 Blood Pressure 121/88 Blood Pressure 117/90 Blood Pressure 117/85 Blood Pressure 117/90 Blood Pressure 120/76 Blood Pressure 130/80 Blood Pressure 126/85 Blood Pressure 125/91 Blood Pressure 108/77 Blood Pressure 121/97 Blood Pressure 127/95 Blood Pressure 129/86 Blood Pressure 129/86 If elevated: Reviewed List meds needing interventions: Blood pressure stable, home med Losartan-HCTZ 100-25mg daily not ordered, will be started tomorrow (09/10/21) per report. - Qtc Review If Elevated: N/A (QTc 461 on admission) - IV to PO Switch IV Medications: Reviewed - Home Meds Home Med List reviewed: Reviewed Relevent Home Meds Not ordered & why?: Resuming his home med (Losartan-HCTZ 100/25mg daily) tomorrow. Home med Omeprazole 20mg daily PRN not ordered, replaced by Famotidine 20mg BID. - Current meds Current Medication Order Review: Reviewed - Comments Comments/Follow Ups: Continue to monitor procalcitonin, CBC, d-dimer, blood pressure, vitals, labs and for medication changes. Antibiotic Activity - Pharmacy Antibiotic Review Pharmacy Antibiotic Activity: Reviewed, no change - Antibiotic Information Antibiotic Review Info: Doxycycline 100mg Q12H and Ceftriaxone 2gm Q24H day 1.
[2021-09-09 12:24] LABS: D-Dimer 849 ng/mlFEU (<500)
[2021-09-09] MEDS: DOXYCYCLINE 100 MG in Normal Saline 100 ML IVPB (12:52)
[2021-09-09 12:53] LABS: Ferritin 1769 ng/mL (26-388)
[2021-09-09] MEDS: Ipratropium/Albuterol 4 GM 120 PUFF INH IH ×3 (12:53→20:31)
[2021-09-09] MEDS: Atorvastatin 40 MG TAB PO (20:31)
[2021-09-09] MEDS: Ascorbic Acid 500 MG TAB 1000 MG PO (20:31)
[2021-09-10] VITALS (38 sets, daily range): BP systolic 116–135; BP diastolic 71–95; PULSE 81–118; RESP 15–30; TEMP 31–37; O2SAT 83–97
[2021-09-10] MEDS: Normal Saline 500 ML 20 ML IV
[2021-09-10] MEDS: DOXYCYCLINE 100 MG in Normal Saline 100 ML IVPB ×3 (00:03→23:52)
[2021-09-10 07:13] LABS: Abs Immature Grans 0.05 10^3/uL (0.0-0.06); Absolute Basophil Count 0.01 10^3/uL (0.0-0.2); Absolute Eosinophil Count 0.03 10^3/uL (0.0-0.7); Absolute Lymphocyte Count 0.62 10^3/uL (1.2-3.4); Absolute Neutrophil Count 7.79 10^3/uL (1.2-6.7); Basophils % 0.1; Eosinophils % 0.3; HCT 44.2 % (40.0-50.0); HGB 14.8 g/dL (13.5-17.5); Immature Grans % 0.6; Lymphocytes % 6.9; MCH 31.1 pg (27.0-33.0); MCHC 33.5 % (32.0-36.0); MCV 92.9 fL (80-95); MPV 8.8 fL (8.0-11.0); Monocytes % 5.6; Neutrophils % 86.5; Nucleated RBC 0 %; Platelet Count 399 10^3/uL (130-400); RBC 4.76 10^6/uL (4.36-5.78); RDW 11.9 % (11.8-14.1); RDW-SD 40.7 fL
[2021-09-10 07:40] LABS: ALT 27 U/L (16-63); AST 33 U/L (15-37); Albumin 2.3 g/dL (3.4-5.0); Alkaline Phosphatase 51 U/L (46-116); Anion Gap 8.7 mmol/L (3-11); BUN 22 mg/dL (7-18); Bilirubin, Total 0.5 mg/dL (0.2-1.0); C-Reactive Protein 11.61 mg/dL (0.0-0.3); CO2 25.3 mmol/L (21.0-32.0); CREATININE 0.9 mg/dL (0.70-1.30); Calcium 8.3 mg/dL (8.5-10.1); Chloride 102 mmol/L (98-107); Creatine Kinase 62 U/L (39-308); Glucose 120 mg/dL (74-106); Potassium 3.9 mmol/L (3.5-5.1); Sodium 136 mmol/L (136-145); Total Protein 6.4 g/dL (6.4-8.2)
[2021-09-10 07:47] LABS: D-Dimer 722 ng/mlFEU (<500)
[2021-09-10 08:05] LABS: Calculated LDL 35 mg/dL (<100); Cholesterol 78 mg/dL (<200); HDL Cholesterol 37 mg/dL (40-60); Triglyceride 33 mg/dL (<150)
[2021-09-10 08:07] LABS: Ferritin 1473 ng/mL (26-388)
[2021-09-10] MEDS: Dexamethasone 4 MG/ML VIAL 6 MG IVP (08:19)
[2021-09-10] MEDS: Ascorbic Acid 500 MG TAB 1000 MG PO ×2 (08:20→19:35)
[2021-09-10] MEDS: Cholecalciferol (Vitamin D3) 1,000 UNIT TAB 2000 UNITS PO (08:20)
[2021-09-10] MEDS: Normal Saline Flush 10 ML SYR IVP ×3 (08:20→23:52)
[2021-09-10] MEDS: Famotidine 20 MG TAB PO ×2 (08:20→19:35)
[2021-09-10] MEDS: Zinc Sulfate 220 MG TAB PO (08:20)
[2021-09-10] MEDS: Acetaminophen 325 MG TAB PO ×2 (08:22→19:55)
[2021-09-10] MEDS: Ipratropium/Albuterol 4 GM 120 PUFF INH IH ×4 (08:39→19:36)
--- NOTE | 2021-09-10 09:26 | PUCC_ITS ---
General Date of Service Date of service: 09/10/21 Time of Service: 07:30 Reason for Admission to ICU: COVID-19 Assessment and Plan Assessment and plan (1) Acute hypoxemic respiratory failure: Status: Acute (2) COVID-19: Status: Acute (3) Cough syncope: Status: Acute Assessment and plan: This is a 61 yo man admitted to the ICU with COVID- 19. He is motivated and cooperative with all treatments. He should continue to wear CPAP at night and is tolerating HFNC during the day. I am hopeful that with some time we can wean him to nasal cannula. Being active as possible and continuing to comply with recommendations will be helpful. His chest CT does show significant progression of pulmonary infiltrates between his recent chest images. He is relatively far out from his initial diagnosis so I am unsure about the efficacy of remdesivir, but fair to continue this if no adverse effects. Recommendations Pulmonary: Hypoxic respiratory failure - HFNC or nasal cannula throughout the day - continue CPAP at night - agree with IS and Acapella - out of bed to chair - ambulation as tolerated - Combivent QID Cardiac: No acute concerns Renal: No acute concerns - recommend negative fluid balance daily I&O: Intake & Output 09/07/21 09/08/21 09/09/21 09/10/21 23:59 23:59 23:59 23:59 Intake Total 1362.28 / 1362.28 140 / 140 Output Total 600 / 600 500 / 500 Balance 762.28 / 762.28 -360 / -360 Weight 113.398 kg Daily Fluid Goal:: -1L in next 24 hours GI Nutrition: OK for PO Date of Last Bowel Movement: 09/10/21 Infectious Disease: COVID-19 - s/p sarilumab - on Decadron and remdesivir - on ceftriaxone and doxycycline - reasonable to complete course Hematologic: No acute concerns Neurologic: No acute concerns - delirium prevention Endocrine: Monitor glucose with labs given steroid use Prophylaxis: Lovenox and Famotidine Code Status: Resuscitation Status Full Code Subjective Critical and life-threatening events over the past 24 hours: This is a 61 yo man initially diagnosed with COVID-19 on 08/29/21 but was out of the window for monoclonal antibodies and was able to go home. His symptoms worsened and returned to the ER. He had a syncopal episode, likely due to hypoxia that resulted in a nose injury but was otherwise ok. He was admitted to the ICU for hypoxic respiratory failure. He received a dose of sarilumab, is getting Decadron and remdesivir (although his initial diagnosis was quite some time ago). He is on HFNC of 50%/35L this morning. He is compliant with wearing his CPAP overnight and is doing Acapella and IS consistently throughout the day. He is unvaccinated, despite his partner being vaccinated. He told me he did not get the vaccine because he never really goes anywhere and did not think he could catch it. We discussed this in depth and also discussed the difference between so called natural immunity versus immunity from the vaccine (which I explained is also natural). He will be getting vaccinated when able after this because he does not want to go through this again. He has shortness of breath and cough. He was coughing up alot of mucus yesterday and this has improved with use of the Acapella. Exam Const General: no acute distress Nutritional Appearance: obese HENMT Head: normocephalic Ears: external ears normal and no periauricular adenopathy General nose exam: nasal mucous membranes and turbinates normal Face and sinus: sinuses nontender Mouth: oropharynx normal and moist mucous membranes Teeth and gingiva: dentition normal Eyes General: appearance normal, both eyes and all related structures Pupils: PERRL Neck Neck: normal visual inspection and no lymphadenopathy Chest Chest: normal inspection of the chest Resp Effort & Inspection: normal respiratory effort Auscultation: rales bilaterally at the base, no rhonchi and no wheezes Cardio Rate: regular rate Rhythm: regular rhythm Heart Sounds: S1 normal, S2 normal and no murmurs Pulses: radial pulses present bilaterally GI Inspection: normal to inspection Palpation: soft Skin General skin exam: no rashes or lesions noted Neuro General: patient alert, patient awake and patient oriented x3 Extrem General: no clubbing, cyanosis or edema Psych Mental Status: mental status grossly normal Affect: normal affect Attitude: cooperative Most Recent VS/Results Last Vital Signs Temp 36.2 C L 09/10/21 08:20 Pulse 101 H 09/10/21 08:27 Resp 15 09/10/21 08:27 BP 118/80 09/10/21 08:27 Pulse Ox 89 L 09/10/21 08:27 Laboratory Results - last 24 hr 09/09/21 09/09/21 09/09/21 11:34 11:34 11:34 WBC RBC Hgb Hct MCV MCH MCHC RDW Plt Count MPV Immature Gran % Neutrophils % Lymphocytes % Monocytes % Eosinophils % Basophils % Nucleated RBC % Absolute Neutrophils Absolute Lymphocytes Absolute Monocytes Absolute Eosinophils Absolute Basophils D-Dimer 849 H Sodium Potassium Chloride Carbon Dioxide Anion Gap BUN Creatinine Estimated GFR/1.73 m2 Glucose Calcium Ferritin 1769 H Total Bilirubin AST ALT Alkaline Phosphatase Creatine Kinase 82 C-Reactive Protein 10.24 H Total Protein Albumin Triglycerides Total Cholesterol LDL Cholesterol, Calc HDL Cholesterol Patient ABO/Rh O Positive 09/10/21 09/10/21 09/10/21 06:25 06:25 06:25 WBC 9.00 RBC 4.76 Hgb 14.8 D Hct 44.2 MCV 92.9 MCH 31.1 MCHC 33.5 RDW 11.9 Plt Count 399 MPV 8.8 Immature Gran % 0.6 Neutrophils % 86.5 Lymphocytes % 6.9 Monocytes % 5.6 Eosinophils % 0.3 Basophils % 0.1 Nucleated RBC % 0 Absolute Neutrophils 7.79 H Absolute Lymphocytes 0.62 L Absolute Monocytes 0.50 Absolute Eosinophils 0.03 Absolute Basophils 0.01 D-Dimer 722 H Sodium 136 Potassium 3.9 Chloride 102 Carbon Dioxide 25.3 Anion Gap 8.7 BUN 22 H Creatinine 0.9 Estimated GFR/1.73 m2 >= 60.00 Glucose 120 H Calcium 8.3 L Ferritin 1473 H Total Bilirubin 0.5 AST 33 ALT 27 Alkaline Phosphatase 51 Creatine Kinase 62 C-Reactive Protein 11.61 H Total Protein 6.4 Albumin 2.3 L Triglycerides 33 Total Cholesterol 78 LDL Cholesterol, Calc 35 HDL Cholesterol 37 L Patient ABO/Rh Review of Systems All systems reviewed & are unremarkable except as noted in HPI and below Time spent with patient Time spent in Critical Care: 45 Time spent in Critical care included: Chart review, Documenting critically ill care, Time at immediate bedside and Discussing critically ill care with other medical staff
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
[2021-09-10] MEDS: cefTRIAXone 2 GM/50 ML BAG IVPB (09:55)
[2021-09-10] MEDS: Enoxaparin 40 MG/0.4 ML SYR SC (09:55)
[2021-09-10 11:02] LABS: HIV-1/2 Ag & Ab Screen Negative (Negative)
[2021-09-10 11:11] LABS: HBs Antibody, Qual Negative (See Note); HBs Antibody, Quant <3.1 mIU/mL (See Note); Hepatitis B Core Antibody Negative (Negative); Hepatitis B surface Ag Negative (Negative); Hepatitis C Ab w Rflx HCV PCR Negative (Negative)
--- NOTE | 2021-09-10 11:36 | PGE_ITS ---
Date of Service Date of service: 09/10/21 Time of Service: 11:36 Assessment and Plan Assessment and plan (1) Acute hypoxemic respiratory failure: Status: Acute Assessment and plan: Continue Decadron and Remdesivir along with encouraging the patient to use I-S and Acapella. Continue Rocephin and doxycycline but if repeat procalcitonin level is normal I would favor discontinu ation of broad-spectrum antibiotics. Patient's not having any fever and not coughing up any purulent sputum. Patient already had been treated twice as an outpatient with oral antibiotics first with Zithromax and then with Augmentin over the last 4 weeks. For now we will keep him on Rocephin and doxycycline pending repeat procalcitonin level. will add torsemide 10 mg daily to maintain negative fluid balance but will monitor electrolytes and BUN and creatinine. 30 minutes critical care time spent evaluating the patient discussing his case with nursing staff and reviewing his labs and putting in orders. (2) COVID-19: Status: Acute Assessment and plan: As above (3) Essential hypertension: Status: Chronic Assessment and plan: Holding his losartan and hydrochlorothiazide for now as he presented with low blood pressure readings. We will try to avoid IV fluids in light of his COVID-19 pneumonia. Blood pressure is stable today will resume his losartan with hydrochlorothiazide tomorrow. (4) GERD (gastroesophageal reflux disease): Status: Chronic Qualifiers: Esophagitis presence: esophagitis presence not specified Qualified Code(s): K21.9 - Gastro-esophageal reflux disease without esophagitis (5) DVT prophylaxis: Status: Acute Assessment and plan: On enoxaparin 40 mg SC daily Subjective Subjective Interval history since last seen: Overall patient feels better today is less dyspneic. He is able to talk in complete sentences not using accessory respiratory muscle. Denies any fever or chills. Has a cough but is nonproductive. Cough has improved. Exam Narrative Exam Narrative: Obese middle-aged white male standing at his bedside watching TV. Currently on high flow nasal cannula at 30 L/min and 39% FiO2. Chest is barrel chested with clear lung harris anteriorly but with posterior basilar rales no rhonchi and no wheezing. Heart is regular but tachycardic without murmur rub Abdomen is obese soft nontender Legs without edema or calf tenderness Objective Last Vital Signs Temp 36.2 C L 09/10/21 08:20 Pulse 104 H 09/10/21 10:01 Resp 21 09/10/21 09:00 BP 120/80 09/10/21 10:01 Pulse Ox 94 09/10/21 10:01 Laboratory Results - last 24 hr 09/09/21 09/09/21 09/09/21 11:34 11:34 11:34 WBC RBC Hgb Hct MCV MCH MCHC RDW Plt Count MPV Immature Gran % Neutrophils % Lymphocytes % Monocytes % Eosinophils % Basophils % Nucleated RBC % Absolute Neutrophils Absolute Lymphocytes Absolute Monocytes Absolute Eosinophils Absolute Basophils D-Dimer 849 H Sodium Potassium Chloride Carbon Dioxide Anion Gap BUN Creatinine Estimated GFR/1.73 m2 Glucose Calcium Ferritin 1769 H Total Bilirubin AST ALT Alkaline Phosphatase Creatine Kinase 82 C-Reactive Protein 10.24 H Total Protein Albumin Triglycerides Total Cholesterol LDL Cholesterol, Calc HDL Cholesterol Patient ABO/Rh O Positive 09/10/21 09/10/21 09/10/21 06:25 06:25 06:25 WBC 9.00 RBC 4.76 Hgb 14.8 D Hct 44.2 MCV 92.9 MCH 31.1 MCHC 33.5 RDW 11.9 Plt Count 399 MPV 8.8 Immature Gran % 0.6 Neutrophils % 86.5 Lymphocytes % 6.9 Monocytes % 5.6 Eosinophils % 0.3 Basophils % 0.1 Nucleated RBC % 0 Absolute Neutrophils 7.79 H Absolute Lymphocytes 0.62 L Absolute Monocytes 0.50 Absolute Eosinophils 0.03 Absolute Basophils 0.01 D-Dimer 722 H Sodium 136 Potassium 3.9 Chloride 102 Carbon Dioxide 25.3 Anion Gap 8.7 BUN 22 H Creatinine 0.9 Estimated GFR/1.73 m2 >= 60.00 Glucose 120 H Calcium 8.3 L Ferritin 1473 H Total Bilirubin 0.5 AST 33 ALT 27 Alkaline Phosphatase 51 Creatine Kinase 62 C-Reactive Protein 11.61 H Total Protein 6.4 Albumin 2.3 L Triglycerides 33 Total Cholesterol 78 LDL Cholesterol, Calc 35 HDL Cholesterol 37 L Patient ABO/Rh
[2021-09-10] MEDS: Torsemide 20 MG TAB 10 MG PO (12:27)
[2021-09-10] MEDS: Potassium Chloride 20 MEQ TABCR PO (12:27)
[2021-09-10] MEDS: Normal Saline 500 ML 30 ML IV (12:31)
[2021-09-10] MEDS: Atorvastatin 40 MG TAB PO (19:35)
[2021-09-10] MEDS: Benzonatate 100 MG CAP PO (19:55)
[2021-09-11] VITALS (29 sets, daily range): BP systolic 107–135; BP diastolic 79–99; PULSE 67–119; RESP 0–27; TEMP 35–36.7; O2SAT 91–100
[2021-09-11 07:03] LABS: Abs Immature Grans 0.09 10^3/uL (0.0-0.06); Absolute Eosinophil Count 0.04 10^3/uL (0.0-0.7); Absolute Monocyte Count 0.68 10^3/uL (0.1-0.8); Absolute Neutrophil Count 11.24 10^3/uL (1.2-6.7); Basophils % 0.2; Eosinophils % 0.3; HCT 44.8 % (40.0-50.0); HGB 14.9 g/dL (13.5-17.5); Immature Grans % 0.7; Lymphocytes % 6.2; MCH 30.7 pg (27.0-33.0); MCHC 33.3 % (32.0-36.0); MCV 92.4 fL (80-95); MPV 9.1 fL (8.0-11.0); Monocytes % 5.3; Neutrophils % 87.3; Nucleated RBC 0 %; Platelet Count 441 10^3/uL (130-400); RBC 4.85 10^6/uL (4.36-5.78); RDW 11.8 % (11.8-14.1); RDW-SD 40.3 fL; WBC 12.87 10^3/uL (4.4-10.8)
[2021-09-11 07:05] LABS: Absolute Basophil Count 0.03 10^3/uL (0.0-0.2)
[2021-09-11 07:32] LABS: D-Dimer 717 ng/mlFEU (<500)
[2021-09-11 07:49] LABS: ALT 26 U/L (16-63); AST 30 U/L (15-37); Albumin 2.5 g/dL (3.4-5.0); Alkaline Phosphatase 53 U/L (46-116); Anion Gap 8.9 mmol/L (3-11); BUN 30 mg/dL (7-18); Bilirubin, Total 0.5 mg/dL (0.2-1.0); CO2 27.1 mmol/L (21.0-32.0); Calcium 8.5 mg/dL (8.5-10.1); Chloride 103 mmol/L (98-107); Ferritin 1602 ng/mL (26-388); Glucose 107 mg/dL (74-106); Sodium 139 mmol/L (136-145); Total Protein 6.7 g/dL (6.4-8.2)
[2021-09-11] MEDS: Potassium Chloride 20 MEQ TABCR PO (08:07)
[2021-09-11] MEDS: Cholecalciferol (Vitamin D3) 1,000 UNIT TAB 2000 UNITS PO (08:07)
[2021-09-11] MEDS: Famotidine 20 MG TAB PO ×2 (08:07→21:57)
[2021-09-11] MEDS: Torsemide 20 MG TAB 10 MG PO (08:07)
[2021-09-11] MEDS: Ascorbic Acid 500 MG TAB 1000 MG PO ×2 (08:07→21:56)
[2021-09-11] MEDS: Zinc Sulfate 220 MG TAB PO (08:07)
[2021-09-11] MEDS: Normal Saline Flush 10 ML SYR IVP ×2 (08:08→12:35)
[2021-09-11] MEDS: Dexamethasone 4 MG/ML VIAL 6 MG IVP (08:08)
[2021-09-11] MEDS: Ipratropium/Albuterol 4 GM 120 PUFF INH IH ×4 (08:11→21:57)
[2021-09-11 08:27] LABS: C-Reactive Protein 5.15 mg/dL (0.0-0.3)
[2021-09-11] MEDS: Acetaminophen 325 MG TAB PO (08:38)
[2021-09-11] MEDS: Insulin NPH-Human 300 UNITS/3 ML PEN 20 UNIT SC (09:35)
[2021-09-11] MEDS: Enoxaparin 40 MG/0.4 ML SYR SC (09:38)
--- NOTE | 2021-09-11 09:39 | CMPROGNOTE_ITS ---
- If Service Date Differs Date of service: 09/11/21 Time of Service: 09:39 Care Management Progress Note S/O: CM was unable to reach Robert over the phone today. He continues to be closely monitored and treated in the ICU for Covid. He is proning as directed, on high flow oxygen and his sats are holding at 93%. He also has a CPAP for HS. Per nursing he's been up in his chair most the day and independent in his room. A: 61 year old male admitted to [facility] on 09/09/21 for Covid Pneumonia, Respiratory Failure. P: Anticipate, Robert will discharge home via private vehicle with family when medically cleared by provider. He will follow up with his community providers and discharge plan of care as prescribed. No new services are anticipated at this time. CM will continue to access discharge planning needs.
[2021-09-11] MEDS: cefTRIAXone 2 GM/50 ML BAG IVPB (09:50)
[2021-09-11] MEDS: DOXYCYCLINE 100 MG in Normal Saline 100 ML IVPB ×2 (12:35→23:15)
[2021-09-11] MEDS: Normal Saline 500 ML 30 ML IV (12:38)
--- NOTE | 2021-09-11 15:28 | W.PM.PROGNOT ---
Date of Service Date of service: 09/11/21 Time of Service: 15:29 Assessment and Plan Assessment and plan (1) Acute hypoxemic respiratory failure: Status: Acute Assessment and plan: cont. Remdesivir (d#3 of 5 doses), decadron 6 mg daily, already treated w/ sarilumab on admission. cont. acapella, incentive spirometer; encourage being up out of bed as much as tolerated and when in bed either prone when possible (which he has trouble d/t his size and use of CPAP at night) or rotation of lying from side to side and avoiding lying on his back. cont. CPAP at night. Still requires close ICU monitoring for now d/t high oxygen needs and severity of his pneumonia. cont. Rocephin and doxycycline (will treat for 5 days then stop antibiotics unless febrile or his procalcitonin increases); note patient already had two courses of antibiotics over the past 4 weeks including Augmentin and azithromycin. (2) COVID-19: Status: Acute Assessment and plan: As above. encourage patient to get vaccination 4 wks post recovery. (3) Essential hypertension: Status: Chronic Assessment and plan: patient's losartan and HCTZ still on hold. BP has not been an issue. however will place on low dose torsemide diuretic to maintain slight hypovolemic state in light of his covid pneumonitis. (4) GERD (gastroesophageal reflux disease): Status: Chronic Assessment and plan: patient placed on pepcid 20 mg bid Qualifiers: Esophagitis presence: esophagitis presence not specified Qualified Code(s): K21.9 - Gastro-esophageal reflux disease without esophagitis (5) DVT prophylaxis: Status: Acute Assessment and plan: On enoxaparin 40 mg SC daily. monitoring d-dimer levels along w/ other inflammatory markers. Subjective Subjective Interval history since last seen: Mr. Ramires is sitting up in his chair watching TV wearing his HFNC at 40 LPM and 50% FIO2. He states that he feels less dyspnea. He has cough which is better. Minimally productive of white to slightly yellow discoloration. No chest tightness. He is moving his bowels and voiding w/out difficulty. No leg pain or swelling. Exam Narrative Exam Narrative: Pleasant, obese middle aged white male sitting up in his chair watching TV. In no acute distress. Not using his accessory muscles Lungs: bibasilar dry rales; no rhonchi or wheezing Heart: RRR to slightly tachycardia Abdomen: obese, soft, nontender and nondistended Legs: no calf or thigh swelling or tenderness Objective Last Vital Signs Temp 36.7 C 09/11/21 13:06 Pulse 114 H 09/11/21 13:06 Resp 17 09/11/21 13:06 BP 128/93 H 09/11/21 13:06 Pulse Ox 94 09/11/21 13:06 Laboratory Results - last 24 hr 09/11/21 09/11/21 09/11/21 06:10 06:10 06:10 WBC 12.87 H D RBC 4.85 Hgb 14.9 Hct 44.8 MCV 92.4 MCH 30.7 MCHC 33.3 RDW 11.8 Plt Count 441 H MPV 9.1 Immature Gran % 0.7 Neutrophils % 87.3 Lymphocytes % 6.2 Monocytes % 5.3 Eosinophils % 0.3 Basophils % 0.2 Nucleated RBC % 0 Absolute Neutrophils 11.24 H Absolute Lymphocytes 0.80 L Absolute Monocytes 0.68 Absolute Eosinophils 0.04 Absolute Basophils 0.03 D-Dimer 717 H Sodium 139 Potassium 4.0 Chloride 103 Carbon Dioxide 27.1 Anion Gap 8.9 BUN 30 H Creatinine 1.0 Estimated GFR/1.73 m2 >= 60.00 Glucose 107 H Calcium 8.5 Ferritin 1602 H Total Bilirubin 0.5 AST 30 ALT 26 Alkaline Phosphatase 53 C-Reactive Protein 5.15 H Total Protein 6.7 Albumin 2.5 L
[2021-09-11] MEDS: Zolpidem 6.25 MG TABCR PO (21:57)
[2021-09-11] MEDS: Atorvastatin 40 MG TAB PO (21:57)
[2021-09-12] VITALS (19 sets, daily range): BP systolic 107–133; BP diastolic 75–88; PULSE 75–110; RESP 0–26; TEMP 33–37; O2SAT 90–96
[2021-09-12 07:12] LABS: Abs Immature Grans 0.09 10^3/uL (0.0-0.06); Absolute Basophil Count 0.02 10^3/uL (0.0-0.2); Absolute Eosinophil Count 0.08 10^3/uL (0.0-0.7); Absolute Lymphocyte Count 0.94 10^3/uL (1.2-3.4); Absolute Monocyte Count 0.72 10^3/uL (0.1-0.8); Basophils % 0.2; Eosinophils % 0.7; HCT 44.8 % (40.0-50.0); HGB 14.9 g/dL (13.5-17.5); Immature Grans % 0.8; Lymphocytes % 8.1; MCH 30.7 pg (27.0-33.0); MCHC 33.3 % (32.0-36.0); MCV 92.2 fL (80-95); MPV 8.9 fL (8.0-11.0); Monocytes % 6.2; Nucleated RBC 0 %; Platelet Count 474 10^3/uL (130-400); RBC 4.86 10^6/uL (4.36-5.78); RDW 11.7 % (11.8-14.1); RDW-SD 39.5 fL; WBC 11.66 10^3/uL (4.4-10.8)
[2021-09-12 07:15] LABS: Absolute Neutrophil Count 9.79 10^3/uL (1.2-6.7)
[2021-09-12 07:35] LABS: ALT 31 U/L (16-63); AST 28 U/L (15-37); Albumin 2.5 g/dL (3.4-5.0); Alkaline Phosphatase 45 U/L (46-116); Anion Gap 8.5 mmol/L (3-11); BUN 28 mg/dL (7-18); Bilirubin, Total 0.5 mg/dL (0.2-1.0); C-Reactive Protein 2.22 mg/dL (0.0-0.3); CO2 25.5 mmol/L (21.0-32.0); CREATININE 0.9 mg/dL (0.70-1.30); Calcium 8.6 mg/dL (8.5-10.1); Chloride 104 mmol/L (98-107); Glucose 92 mg/dL (74-106); Potassium 3.9 mmol/L (3.5-5.1); Sodium 138 mmol/L (136-145); Total Protein 6.4 g/dL (6.4-8.2)
[2021-09-12 07:44] LABS: D-Dimer 600 ng/mlFEU (<500)
[2021-09-12 07:47] LABS: Procalcitonin < 0.1 ng/mL
[2021-09-12 08:21] LABS: Ferritin 1226 ng/mL (26-388)
--- NOTE | 2021-09-12 08:22 | W.PM.PROGNOT ---
Date of Service Date of service: 09/12/21 Time of Service: 18:47 Assessment and Plan Assessment and plan (1) Acute hypoxemic respiratory failure: Status: Acute Assessment and plan: Due to COVID-19. Stable. S/p sarilumab. Continue remdesivir, dexamethasone, IS/acapella. Procalcitonin normal - d/c abx. (2) COVID-19: Status: Acute Assessment and plan: As above (3) Essential hypertension: Status: Chronic Assessment and plan: Continue low dose torsemide (4) GERD (gastroesophageal reflux disease): Status: Chronic Assessment and plan: Continue pepcid 20 mg bid Qualifiers: Esophagitis presence: esophagitis presence not specified Qualified Code(s): K21.9 - Gastro-esophageal reflux disease without esophagitis (5) DVT prophylaxis: Status: Acute Assessment and plan: Continue sc lovenox (6) Discharge planning issues: Status: Acute Assessment and plan: Full code Continues to require ICU. Total Critical Care Time 30 minutes Subjective Subjective Interval history since last seen: Doing better. Denies dizziness, chest pain, shortness of breath at rest, nausea. Did have diarrhea. LEES with walking around the room to the commode. On HHHFNC 30 L 50% FiO2. Slept on CPAP. Pressure of 10, FiO2 50%. Was on 50% FiO2 yesterday and today. Exam Narrative Exam Narrative: General: Pleasant middle-aged obese male who appears very mildly dyspneic while talking to me on humidified heated high flow NC, A&OX3 HEENT: EOMI, MMM Heart: RRR, no m/r/g Lungs: faint crackles at B bases Abdomen: soft, nontender, nondistended Extremities: no edema BLE's Objective Last Vital Signs Temp 36.5 C 09/12/21 04:00 Pulse 75 09/12/21 00:01 Resp 21 09/12/21 00:01 BP 125/88 09/12/21 00:01 Pulse Ox 94 09/12/21 06:40 Laboratory Results - last 24 hr 09/11/21 09/12/21 09/12/21 06:10 06:20 06:20 WBC RBC Hgb Hct MCV MCH MCHC RDW Plt Count MPV Immature Gran % Neutrophils % Lymphocytes % Monocytes % Eosinophils % Basophils % Nucleated RBC % Absolute Neutrophils Absolute Lymphocytes Absolute Monocytes Absolute Eosinophils Absolute Basophils D-Dimer Sodium 138 Potassium 3.9 Chloride 104 Carbon Dioxide 25.5 Anion Gap 8.5 BUN 28 H Creatinine 0.9 Estimated GFR/1.73 m2 >= 60.00 Glucose 92 Calcium 8.6 Ferritin 1226 H Total Bilirubin 0.5 AST 28 ALT 31 Alkaline Phosphatase 45 L C-Reactive Protein 5.15 H 2.22 H Total Protein 6.4 Albumin 2.5 L Procalcitonin < 0.1 09/12/21 09/12/21 06:20 06:20 WBC 11.66 H RBC 4.86 Hgb 14.9 Hct 44.8 MCV 92.2 MCH 30.7 MCHC 33.3 RDW 11.7 L Plt Count 474 H MPV 8.9 Immature Gran % 0.8 Neutrophils % 84.0 Lymphocytes % 8.1 Monocytes % 6.2 Eosinophils % 0.7 Basophils % 0.2 Nucleated RBC % 0 Absolute Neutrophils 9.79 H Absolute Lymphocytes 0.94 L Absolute Monocytes 0.72 Absolute Eosinophils 0.08 Absolute Basophils 0.02 D-Dimer 600 H Sodium Potassium Chloride Carbon Dioxide Anion Gap BUN Creatinine Estimated GFR/1.73 m2 Glucose Calcium Ferritin Total Bilirubin AST ALT Alkaline Phosphatase C-Reactive Protein Total Protein Albumin Procalcitonin
[2021-09-12] MEDS: Famotidine 20 MG TAB PO ×2 (08:46→20:36)
[2021-09-12] MEDS: Dexamethasone 4 MG/ML VIAL 6 MG IVP (08:46)
[2021-09-12] MEDS: Ascorbic Acid 500 MG TAB 1000 MG PO ×2 (08:46→20:37)
[2021-09-12] MEDS: Zinc Sulfate 220 MG TAB PO (08:46)
[2021-09-12] MEDS: Acetaminophen 325 MG TAB PO (08:46)
[2021-09-12] MEDS: Cholecalciferol (Vitamin D3) 1,000 UNIT TAB 2000 UNITS PO (08:46)
[2021-09-12] MEDS: Torsemide 20 MG TAB 10 MG PO (08:47)
[2021-09-12] MEDS: Potassium Chloride 20 MEQ TABCR PO (08:47)
[2021-09-12] MEDS: Normal Saline Flush 10 ML SYR IVP (08:48)
[2021-09-12] MEDS: Insulin NPH-Human 300 UNITS/3 ML PEN 20 UNIT SC (09:16)
[2021-09-12] MEDS: Ipratropium/Albuterol 4 GM 120 PUFF INH IH ×3 (09:17→20:36)
[2021-09-12] MEDS: Enoxaparin 40 MG/0.4 ML SYR SC (10:54)
--- NOTE | 2021-09-12 14:07 | CHAPLAIN ---
I met briefly with Vic's Karina who was coming in to visit with Vic over the phone, through the glass wall. She said they usually celebrate on both and , so he's likely feeling down about not being home. (Karina is an [employer] employee who works at [employer].)
[2021-09-12 17:57] LABS: Streptococcus Pneumoniae Ag, U Negative (Negative)
[2021-09-12] MEDS: Atorvastatin 40 MG TAB PO (20:36)
[2021-09-12] MEDS: Zolpidem 6.25 MG TABCR PO (20:36)
[2021-09-13] VITALS (17 sets, daily range): BP systolic 110–143; BP diastolic 75–92; PULSE 59–114; RESP 16–28; TEMP 36.2–37; O2SAT 88–99
[2021-09-13 07:05] LABS: Abs Immature Grans 0.13 10^3/uL (0.0-0.06); Absolute Basophil Count 0.02 10^3/uL (0.0-0.2); Absolute Eosinophil Count 0.12 10^3/uL (0.0-0.7); Absolute Lymphocyte Count 1.04 10^3/uL (1.2-3.4); Absolute Monocyte Count 0.72 10^3/uL (0.1-0.8); Basophils % 0.2; Eosinophils % 1.1; HCT 44.1 % (40.0-50.0); HGB 14.8 g/dL (13.5-17.5); Immature Grans % 1.2; Lymphocytes % 9.4; MCHC 33.6 % (32.0-36.0); MCV 92.3 fL (80-95); MPV 8.7 fL (8.0-11.0); Monocytes % 6.5; Neutrophils % 81.6; Nucleated RBC 0 %; Platelet Count 451 10^3/uL (130-400); RBC 4.78 10^6/uL (4.36-5.78); RDW 11.9 % (11.8-14.1); RDW-SD 40.6 fL; WBC 11.07 10^3/uL (4.4-10.8)
[2021-09-13 07:10] LABS: Absolute Neutrophil Count 9.03 10^3/uL (1.2-6.7)
[2021-09-13 07:18] LABS: INR 1.2 (0.9-1.1); Prothrombin Time 11.8 sec (9.3-11.0)
[2021-09-13 07:40] LABS: ALT 29 U/L (16-63); AST 37 U/L (15-37); Albumin 2.5 g/dL (3.4-5.0); Alkaline Phosphatase 48 U/L (46-116); Anion Gap 6.5 mmol/L (3-11); BUN 27 mg/dL (7-18); Bilirubin, Direct 0.2 mg/dL (0.0-0.2); Bilirubin, Total 0.5 mg/dL (0.2-1.0); CO2 24.5 mmol/L (21.0-32.0); CREATININE 0.9 mg/dL (0.70-1.30); Calcium 8.5 mg/dL (8.5-10.1); Chloride 104 mmol/L (98-107); Glucose 83 mg/dL (74-106); Potassium 3.9 mmol/L (3.5-5.1); Sodium 135 mmol/L (136-145); Total Protein 6.2 g/dL (6.4-8.2)
[2021-09-13 07:46] LABS: D-Dimer 766 ng/mlFEU (<500)
--- NOTE | 2021-09-13 08:20 | PGE_ITS ---
Date of Service Date of service: 09/13/21 Time of Service: 12:30 Assessment and Plan Assessment and plan (1) Acute hypoxemic respiratory failure: Status: Acute Assessment and plan: Due to COVID-19. Slightly better than yesterday. Stable enough for transfer out of the ICU. S/p sarilumab. Continue remdesivir, dexamethasone, IS/acapella. Procalcitonin normal - no role for further abx. Will give an extra dose of furosemide today. (2) COVID-19: Status: Acute Assessment and plan: As above (3) Essential hypertension: Status: Chronic Assessment and plan: Continue low dose torsemide after receiving an extra dose of lasix today (4) GERD (gastroesophageal reflux disease): Status: Chronic Assessment and plan: Continue pepcid 20 mg bid Qualifiers: Esophagitis presence: esophagitis presence not specified Qualified Code(s): K21.9 - Gastro-esophageal reflux disease without esophagitis (5) DVT prophylaxis: Status: Acute Assessment and plan: Continue sc lovenox (6) Discharge planning issues: Status: Acute Assessment and plan: Full code Transfer out of the ICU to medical surgical floor. Subjective Subjective Interval history since last seen: Mr Ramires states he feels better. He reports some chest burning from coughing, but otherwise denies dizziness, shortness of breath while talking to me or while eating lunch. Denies n/v/diarrhea. Slept on CPAP 40% FiO2 pressure of 10. O2 sats 91%. On humidified heated high flow right now with FiO2 of 45-47%, saturating 88-89% while eating. Heme negative stool. 650 cc UOP overnight. Independent in the room. Hinduism about acapella. Prones from side to side. Nursing feels he is ready for medical surgical floor. Exam Narrative Exam Narrative: General: Pleasant middle-aged male who is sitting up in a chair on a humidified heated high flow, enthusiastically eating lunch, A&Ox3, no dyspnea/tachypnea/cyanosis, looks better HEENT: EOMI, MMM Heart: RRR, no m/r/g Lungs: diffuse quiet crackles B Abdomen: soft, nontender, nondistended Extremities: no edema BLE's Objective Last Vital Signs Temp 36.9 C 09/13/21 04:30 Pulse 73 09/13/21 04:01 Resp 23 09/13/21 04:02 BP 130/78 09/13/21 04:01 Pulse Ox 91 L 09/13/21 04:02 Laboratory Results - last 24 hr 09/10/21 09/12/21 09/13/21 13:55 06:20 05:35 WBC RBC Hgb Hct MCV MCH MCHC RDW Plt Count MPV Immature Gran % Neutrophils % Lymphocytes % Monocytes % Eosinophils % Basophils % Nucleated RBC % Absolute Neutrophils Absolute Lymphocytes Absolute Monocytes Absolute Eosinophils Absolute Basophils PT INR D-Dimer Sodium Cancelled Potassium Cancelled Chloride Cancelled Carbon Dioxide Cancelled Anion Gap Cancelled BUN Cancelled Creatinine Cancelled Estimated GFR/1.73 m2 Cancelled Glucose Cancelled Calcium Cancelled Magnesium Cancelled Ferritin 1226 H Total Bilirubin Cancelled Conjugated Bilirubin Cancelled AST Cancelled ALT Cancelled Alkaline Phosphatase Cancelled C-Reactive Protein Cancelled Total Protein Cancelled Albumin Cancelled Ur Strep pneumoniae Ag Negative 09/13/21 09/13/21 09/13/21 06:25 06:25 06:25 WBC 11.07 H RBC 4.78 Hgb 14.8 Hct 44.1 MCV 92.3 MCH 31.0 MCHC 33.6 RDW 11.9 Plt Count 451 H MPV 8.7 Immature Gran % 1.2 Neutrophils % 81.6 Lymphocytes % 9.4 Monocytes % 6.5 Eosinophils % 1.1 Basophils % 0.2 Nucleated RBC % 0 Absolute Neutrophils 9.03 H Absolute Lymphocytes 1.04 L Absolute Monocytes 0.72 Absolute Eosinophils 0.12 Absolute Basophils 0.02 PT 11.8 H INR 1.2 H D-Dimer 766 H Sodium 135 L Potassium 3.9 Chloride 104 Carbon Dioxide 24.5 Anion Gap 6.5 BUN 27 H Creatinine 0.9 Estimated GFR/1.73 m2 >= 60.00 Glucose 83 Calcium 8.5 Magnesium 2.0 Ferritin Total Bilirubin 0.5 Conjugated Bilirubin 0.2 AST 37 ALT 29 Alkaline Phosphatase 48 C-Reactive Protein 1.10 H Total Protein 6.2 L Albumin 2.5 L Ur Strep pneumoniae Ag
[2021-09-13] MEDS: Ascorbic Acid 500 MG TAB 1000 MG PO ×2 (08:59→20:33)
[2021-09-13] MEDS: Cholecalciferol (Vitamin D3) 1,000 UNIT TAB 2000 UNITS PO (08:59)
[2021-09-13] MEDS: Dexamethasone 4 MG/ML VIAL 6 MG IVP (09:00)
[2021-09-13] MEDS: Famotidine 20 MG TAB PO ×2 (09:00→20:34)
[2021-09-13] MEDS: Ipratropium/Albuterol 4 GM 120 PUFF INH IH ×4 (09:01→20:48)
[2021-09-13] MEDS: Potassium Chloride 20 MEQ TABCR PO (09:01)
[2021-09-13] MEDS: Zinc Sulfate 220 MG TAB PO (09:02)
[2021-09-13] MEDS: Torsemide 20 MG TAB 10 MG PO (09:02)
[2021-09-13] MEDS: Insulin NPH-Human 300 UNITS/3 ML PEN 20 UNIT SC (10:06)
[2021-09-13] MEDS: Insulin Aspart 300 UNITS/3 ML PEN SC (10:07)
[2021-09-13] MEDS: Benzonatate 100 MG CAP PO (12:03)
[2021-09-13] MEDS: Enoxaparin 40 MG/0.4 ML SYR SC (12:04)
[2021-09-13] MEDS: Furosemide 20 MG/2 ML VIAL IVP (13:30)
[2021-09-13] MEDS: Atorvastatin 40 MG TAB PO (20:33)
[2021-09-13] MEDS: Benzonatate 200 MG CAP PO (20:33)
[2021-09-13] MEDS: Normal Saline Flush 10 ML SYR IVP (20:34)
[2021-09-13] MEDS: Zolpidem 6.25 MG TABCR PO (22:23)
[2021-09-14] VITALS (11 sets, daily range): BP systolic 104–120; BP diastolic 63–87; PULSE 67–104; RESP 16–18; TEMP 35.5–37; O2SAT 93–97
[2021-09-14 07:54] LABS: Abs Immature Grans 0.17 10^3/uL (0.0-0.06); Absolute Eosinophil Count 0.15 10^3/uL (0.0-0.7); Absolute Lymphocyte Count 1.44 10^3/uL (1.2-3.4); Absolute Monocyte Count 0.87 10^3/uL (0.1-0.8); Basophils % 0.3; HCT 45.2 % (40.0-50.0); HGB 15.4 g/dL (13.5-17.5); Immature Grans % 1.1; Lymphocytes % 9.5; MCH 31.2 pg (27.0-33.0); MCHC 34.1 % (32.0-36.0); MCV 91.7 fL (80-95); MPV 8.8 fL (8.0-11.0); Monocytes % 5.7; Neutrophils % 82.4; Nucleated RBC 0 %; Platelet Count 419 10^3/uL (130-400); RBC 4.93 10^6/uL (4.36-5.78); RDW 11.9 % (11.8-14.1); RDW-SD 40.2 fL
[2021-09-14 08:12] LABS: Absolute Basophil Count 0.05 10^3/uL (0.0-0.2); Absolute Neutrophil Count 12.52 10^3/uL (1.2-6.7)
[2021-09-14 08:19] LABS: INR 1.2 (0.9-1.1); Prothrombin Time 11.6 sec (9.3-11.0)
[2021-09-14 08:20] LABS: ALT 36 U/L (16-63); AST 36 U/L (15-37); Albumin 2.6 g/dL (3.4-5.0); Alkaline Phosphatase 51 U/L (46-116); Bilirubin, Direct 0.2 mg/dL (0.0-0.2); Bilirubin, Total 0.6 mg/dL (0.2-1.0); C-Reactive Protein 0.55 mg/dL (0.0-0.3); Magnesium 2.1 mg/dL (1.8-2.4); Total Protein 6.1 g/dL (6.4-8.2)
[2021-09-14 08:32] LABS: D-Dimer 1042 ng/mlFEU (<500)
[2021-09-14 08:43] LABS: Ferritin 854 ng/mL (26-388)
[2021-09-14] MEDS: Insulin NPH-Human 300 UNITS/3 ML PEN 20 UNIT SC (08:44)
[2021-09-14] MEDS: Torsemide 20 MG TAB 10 MG PO (08:45)
[2021-09-14] MEDS: Ascorbic Acid 500 MG TAB 1000 MG PO ×2 (08:45→20:57)
[2021-09-14] MEDS: Potassium Chloride 20 MEQ TABCR PO (08:45)
[2021-09-14] MEDS: Famotidine 20 MG TAB PO ×2 (08:45→20:57)
[2021-09-14] MEDS: Cholecalciferol (Vitamin D3) 1,000 UNIT TAB 2000 UNITS PO (08:45)
[2021-09-14] MEDS: Ipratropium/Albuterol 4 GM 120 PUFF INH IH ×4 (08:45→20:57)
[2021-09-14] MEDS: Zinc Sulfate 220 MG TAB PO (08:45)
[2021-09-14] MEDS: Dexamethasone 4 MG/ML VIAL 6 MG IVP (08:45)
[2021-09-14] MEDS: Benzonatate 200 MG CAP PO ×3 (08:45→20:57)
[2021-09-14 08:58] LABS: Anion Gap 10.1 mmol/L (3-11); BUN 28 mg/dL (7-18); CO2 22.9 mmol/L (21.0-32.0); CREATININE 0.9 mg/dL (0.70-1.30); Calcium 8.4 mg/dL (8.5-10.1); Chloride 103 mmol/L (98-107); Glucose 82 mg/dL (74-106); Potassium 3.9 mmol/L (3.5-5.1); Sodium 136 mmol/L (136-145)
[2021-09-14 09:18] LABS: Procalcitonin < 0.1 ng/mL
[2021-09-14] MEDS: Enoxaparin 40 MG/0.4 ML SYR SC (09:59)
[2021-09-14] MEDS: Insulin Aspart 300 UNITS/3 ML PEN SC (11:35)
--- NOTE | 2021-09-14 16:06 | PGE_ITS ---
Date of Service Date of service: 09/14/21 Time of Service: 16:07 Assessment and Plan Assessment and plan (1) Acute hypoxemic respiratory failure: Status: Acute Assessment and plan: Due to COVID-19. Improving. Continue to titrate O2 down. S/p sarilumab. Continue remdesivir, dexamethasone, IS/acapella. Will resume doxycycline - PO - given change in sputum color. (2) COVID-19: Status: Acute Assessment and plan: As above (3) Essential hypertension: Status: Chronic Assessment and plan: Continue low dose torsemide (4) GERD (gastroesophageal reflux disease): Status: Chronic Assessment and plan: Continue pepcid 20 mg bid Qualifiers: Esophagitis presence: esophagitis presence not specified Qualified Code(s): K21.9 - Gastro-esophageal reflux disease without esophagitis (5) DVT prophylaxis: Status: Acute Assessment and plan: Continue sc lovenox (6) Discharge planning issues: Status: Acute Assessment and plan: Full code Continues to require hospitalization Subjective Subjective Interval history since last seen: Mr Keyla states that he now has a cough productive of yellow sputum. He otherwise feels better - like he has more energy. Only gets chest pain when coughing. Denies dizziness, nausea. LEES. On humidified heated high flow nasal canula with FiO2 of 41%, O2 sats in mid- 90s. Requests chocolate or chocolate chip cookies. Exam Narrative Exam Narrative: General: Pleasant middle-aged male who is sitting up in a chair on a humidified heated high flow, A&Ox3, looks better. Yellow sputum in a cup HEENT: EOMI, MMM Heart: RRR, no m/r/g Lungs: quiet crackles R base Abdomen: soft, nontender, nondistended Extremities: no edema BLE's Objective Last Vital Signs Temp 36 C L 09/14/21 11:29 Pulse 104 H 09/14/21 11:29 Resp 18 09/14/21 11:29 BP 107/67 09/14/21 11:29 Pulse Ox 96 09/14/21 11:29 Laboratory Results - last 24 hr 09/14/21 09/14/21 09/14/21 07:05 07:05 07:05 WBC 15.20 H D RBC 4.93 Hgb 15.4 Hct 45.2 MCV 91.7 MCH 31.2 MCHC 34.1 RDW 11.9 Plt Count 419 H MPV 8.8 Immature Gran % 1.1 Neutrophils % 82.4 Lymphocytes % 9.5 Monocytes % 5.7 Eosinophils % 1.0 Basophils % 0.3 Nucleated RBC % 0 Absolute Neutrophils 12.52 H Absolute Lymphocytes 1.44 Absolute Monocytes 0.87 H Absolute Eosinophils 0.15 Absolute Basophils 0.05 PT INR D-Dimer Sodium 136 Potassium 3.9 Chloride 103 Carbon Dioxide 22.9 Anion Gap 10.1 BUN 28 H Creatinine 0.9 Estimated GFR/1.73 m2 >= 60.00 Glucose 82 Calcium 8.4 L Magnesium 2.1 Ferritin 854 H Total Bilirubin 0.6 Conjugated Bilirubin 0.2 AST 36 ALT 36 Alkaline Phosphatase 51 C-Reactive Protein 0.55 H Total Protein 6.1 L Albumin 2.6 L Procalcitonin < 0.1 09/14/21 09/14/21 07:05 07:05 WBC RBC Hgb Hct MCV MCH MCHC RDW Plt Count MPV Immature Gran % Neutrophils % Lymphocytes % Monocytes % Eosinophils % Basophils % Nucleated RBC % Absolute Neutrophils Absolute Lymphocytes Absolute Monocytes Absolute Eosinophils Absolute Basophils PT 11.6 H INR 1.2 H D-Dimer 1042 H Sodium Cancelled Potassium Cancelled Chloride Cancelled Carbon Dioxide Cancelled Anion Gap Cancelled BUN Cancelled Creatinine Cancelled Estimated GFR/1.73 m2 Cancelled Glucose Cancelled Calcium Cancelled Magnesium Ferritin Total Bilirubin Cancelled Conjugated Bilirubin AST Cancelled ALT Cancelled Alkaline Phosphatase Cancelled C-Reactive Protein Total Protein Cancelled Albumin Cancelled Procalcitonin
[2021-09-14] MEDS: Atorvastatin 40 MG TAB PO (20:57)
[2021-09-14] MEDS: Doxycycline Hyclate 100 MG CAP PO (20:57)
[2021-09-14] MEDS: Normal Saline Flush 10 ML SYR IVP (20:59)
[2021-09-14] MEDS: Zolpidem 6.25 MG TABCR PO (21:03)
[2021-09-15] VITALS (14 sets, daily range): BP systolic 108–117; BP diastolic 78–89; PULSE 61–106; RESP 18–19; TEMP 35–37; O2SAT 90–95
[2021-09-15 02:34] LABS: Vitamin D 25 Total 34.8 ng/mL (30-100)
[2021-09-15 06:44] LABS: Abs Immature Grans 0.34 10^3/uL (0.0-0.06); Absolute Basophil Count 0.04 10^3/uL (0.0-0.2); Absolute Lymphocyte Count 1.16 10^3/uL (1.2-3.4); Basophils % 0.2; Eosinophils % 0.5; HCT 44.7 % (40.0-50.0); Immature Grans % 1.8; Lymphocytes % 6.1; MCH 30.9 pg (27.0-33.0); MCHC 33.6 % (32.0-36.0); MPV 8.7 fL (8.0-11.0); Monocytes % 5.6; Neutrophils % 85.8; Nucleated RBC 0 %; Platelet Count 432 10^3/uL (130-400); RBC 4.86 10^6/uL (4.36-5.78); RDW 11.9 % (11.8-14.1); RDW-SD 40.1 fL; WBC 19.04 10^3/uL (4.4-10.8)
[2021-09-15 06:45] LABS: Absolute Monocyte Count 1.07 10^3/uL (0.1-0.8); Absolute Neutrophil Count 16.34 10^3/uL (1.2-6.7)
[2021-09-15 06:56] LABS: INR 1.2 (0.9-1.1); Prothrombin Time 11.6 sec (9.3-11.0)
[2021-09-15 06:59] LABS: ALT 40 U/L (16-63); AST 27 U/L (15-37); Albumin 2.6 g/dL (3.4-5.0); Alkaline Phosphatase 60 U/L (46-116); Anion Gap 7.2 mmol/L (3-11); BUN 25 mg/dL (7-18); Bilirubin, Total 0.6 mg/dL (0.2-1.0); C-Reactive Protein 0.29 mg/dL (0.0-0.3); CO2 25.8 mmol/L (21.0-32.0); CREATININE 0.9 mg/dL (0.70-1.30); Calcium 8.3 mg/dL (8.5-10.1); Chloride 101 mmol/L (98-107); Glucose 126 mg/dL (74-106); Magnesium 2.1 mg/dL (1.8-2.4); Potassium 4.1 mmol/L (3.5-5.1); Sodium 134 mmol/L (136-145); Total Protein 5.9 g/dL (6.4-8.2)
[2021-09-15 07:18] LABS: D-Dimer 598 ng/mlFEU (<500)
[2021-09-15 07:30] LABS: Ferritin 799 ng/mL (26-388)
[2021-09-15] MEDS: Ipratropium/Albuterol 4 GM 120 PUFF INH IH ×4 (07:58→19:41)
[2021-09-15] MEDS: Dexamethasone 4 MG/ML VIAL 6 MG IVP (07:58)
[2021-09-15] MEDS: Normal Saline Flush 10 ML SYR IVP ×3 (07:58→19:39)
[2021-09-15] MEDS: Cholecalciferol (Vitamin D3) 1,000 UNIT TAB 2000 UNITS PO (07:58)
[2021-09-15] MEDS: Insulin NPH-Human 300 UNITS/3 ML PEN 20 UNIT SC (07:59)
[2021-09-15] MEDS: Potassium Chloride 20 MEQ TABCR PO (08:00)
[2021-09-15] MEDS: Doxycycline Hyclate 100 MG CAP PO (08:00)
[2021-09-15] MEDS: Benzonatate 200 MG CAP PO ×3 (08:00→19:39)
[2021-09-15] MEDS: Famotidine 20 MG TAB PO ×2 (08:00→19:39)
[2021-09-15] MEDS: Ascorbic Acid 500 MG TAB 1000 MG PO ×2 (08:00→19:39)
[2021-09-15] MEDS: Zinc Sulfate 220 MG TAB PO (08:00)
[2021-09-15] MEDS: Torsemide 20 MG TAB 10 MG PO (08:01)
--- NOTE | 2021-09-15 09:07 | PDOC.CMPRO ---
- If Service Date Differs Date of service: 09/15/21 Time of Service: 09:07 Care Management Progress Note S/O: Robert continues to require close monitoring and treatment for Covid. He is up independently in his room and proning as directed. He requires Hi-Flow O2 and is using his CPAP at HS. He has a productive cough and raising yellow sputum, otherwise he feels better overall. A: 61 year old male admitted to [facility] on 09/09/21 for Covid Pneumonia, Respiratory Failure. P: Anticipate, Robert will discharge home via private vehicle with family when medically cleared by provider. He will follow up with his community providers and discharge plan of care as prescribed. No new services are anticipated at this time. CM will continue to access discharge planning needs.
[2021-09-15] MEDS: Enoxaparin 40 MG/0.4 ML SYR SC (10:06)
--- NOTE | 2021-09-15 14:50 | W.PM.PROGNOT ---
Date of Service Date of service: 09/15/21 Time of Service: 14:50 Assessment and Plan Assessment and plan (1) Acute hypoxemic respiratory failure: Status: Acute Assessment and plan: Due to COVID-19 with what appears to be superimposed bacterial process. Change abx to IV (ceftriaxone/doxycycline). Add mucolytics. Improving. Continue to titrate O2 down. S/p sarilumab. Continue remdesivir, dexamethasone, IS/acapella. (2) COVID-19: Status: Acute Assessment and plan: As above (3) Essential hypertension: Status: Chronic Assessment and plan: Continue low dose torsemide (4) GERD (gastroesophageal reflux disease): Status: Chronic Assessment and plan: Continue pepcid 20 mg bid Qualifiers: Esophagitis presence: esophagitis presence not specified Qualified Code(s): K21.9 - Gastro-esophageal reflux disease without esophagitis (5) DVT prophylaxis: Status: Acute Assessment and plan: Continue sc lovenox (6) Discharge planning issues: Status: Acute Assessment and plan: Full code Continues to require hospitalization Subjective Subjective Interval history since last seen: Mr Ramires states he overall feels better. He has been transitioned to 4L NC. He complains of productive cough with thick yellow-pendleton sputum, and cough is a little worse today. Denies dizziness, endorses chest pain from coughing, not SOB at rest. Denies n/v. Exam Narrative Exam Narrative: General: Pleasant middle-aged male who is sitting up in a chair, on 4L of O2 by NC, looks better, but is coughing quite frequently. A&Ox3. Heart: RRR, no m/r/g Lungs: quiet crackles R base Abdomen: soft, nontender, nondistended Extremities: no edema BLE's Objective Last Vital Signs Temp 36.1 C L 09/15/21 11:17 Pulse 98 H 09/15/21 11:17 Resp 18 09/15/21 11:17 BP 117/80 09/15/21 11:17 Pulse Ox 93 09/15/21 12:04 Laboratory Results - last 24 hr 09/13/21 09/15/21 09/15/21 06:25 06:10 06:10 WBC 19.04 H RBC 4.86 Hgb 15.0 Hct 44.7 MCV 92.0 MCH 30.9 MCHC 33.6 RDW 11.9 Plt Count 432 H MPV 8.7 Immature Gran % 1.8 Neutrophils % 85.8 Lymphocytes % 6.1 Monocytes % 5.6 Eosinophils % 0.5 Basophils % 0.2 Nucleated RBC % 0 Absolute Neutrophils 16.34 H Absolute Lymphocytes 1.16 L Absolute Monocytes 1.07 H Absolute Eosinophils 0.10 Absolute Basophils 0.04 PT INR D-Dimer Sodium 134 L Potassium 4.1 Chloride 101 Carbon Dioxide 25.8 Anion Gap 7.2 BUN 25 H Creatinine 0.9 Estimated GFR/1.73 m2 >= 60.00 Glucose 126 H Calcium 8.3 L Phosphorus Magnesium 2.1 Ferritin 799 H Total Bilirubin 0.6 AST 27 ALT 40 Alkaline Phosphatase 60 C-Reactive Protein 0.29 Total Protein 5.9 L Albumin 2.6 L 25-OH Vitamin D Total 34.8 09/15/21 09/15/21 06:10 06:10 WBC RBC Hgb Hct MCV MCH MCHC RDW Plt Count MPV Immature Gran % Neutrophils % Lymphocytes % Monocytes % Eosinophils % Basophils % Nucleated RBC % Absolute Neutrophils Absolute Lymphocytes Absolute Monocytes Absolute Eosinophils Absolute Basophils PT 11.6 H INR 1.2 H D-Dimer 598 H Sodium Potassium Chloride Carbon Dioxide Anion Gap BUN Creatinine Estimated GFR/1.73 m2 Glucose Calcium Phosphorus 4.0 Magnesium Ferritin Total Bilirubin AST ALT Alkaline Phosphatase C-Reactive Protein Total Protein Albumin 25-OH Vitamin D Total
--- NOTE | 2021-09-15 15:05 | W.NUTRFU ---
Date of service: 09/15/21 Time of Service: 15:05 Nutrition Note NOTE: Mr. Ramires has excellent PO intake on a regular diet. His weight history shows a 7% weight loss in the past month. His BMI is 36.4 kg/m2 c/w class 2 obesity. It is likely that in the hospital Mr. Ramires eats less calories than he does at home although sufficient. I will check in with him to see if he would like a nutritional supplement while he is in the hospital. Will continue to monitor his nutritional status. Will evaluate nutrition care plan ongoing and adjust as needed. Time Spent in Nutritional Counseling and Treatment: 0
[2021-09-15] MEDS: guaiFENesin 600 MG TABCR PO ×2 (15:32→19:39)
[2021-09-15] MEDS: DOXYCYCLINE 100 MG in Normal Saline 100 ML IVPB (15:32)
[2021-09-15] MEDS: cefTRIAXone 1 GM/50 ML BAG IVPB (15:33)
[2021-09-15] MEDS: Normal Saline 500 ML 30 ML IV (15:33)
[2021-09-15] MEDS: Atorvastatin 40 MG TAB PO (19:38)
[2021-09-15] MEDS: Zolpidem 6.25 MG TABCR PO (21:24)
[2021-09-15] MEDS: Insulin Aspart 300 UNITS/3 ML PEN SC (21:24)
[2021-09-16] VITALS (8 sets, daily range): BP systolic 97–131; BP diastolic 73–96; PULSE 66–113; RESP 19–22; TEMP 35.1–35.9; O2SAT 93–990
[2021-09-16] MEDS: Normal Saline Flush 10 ML SYR IVP ×4 (03:45→20:10)
[2021-09-16] MEDS: DOXYCYCLINE 100 MG in Normal Saline 100 ML IVPB ×2 (03:45→16:03)
[2021-09-16 07:17] LABS: Abs Immature Grans 0.34 10^3/uL (0.0-0.06); Basophils % 0.4; HGB 16.6 g/dL (13.5-17.5); Immature Grans % 1.5; Lymphocytes % 6.3; MCH 31.4 pg (27.0-33.0); MCHC 33.9 % (32.0-36.0); MCV 92.8 fL (80-95); MPV 8.8 fL (8.0-11.0); Monocytes % 5.2; Neutrophils % 86.6; Nucleated RBC 0 %; Platelet Count 444 10^3/uL (130-400); RBC 5.28 10^6/uL (4.36-5.78); RDW-SD 41.2 fL; WBC 22.71 10^3/uL (4.4-10.8)
[2021-09-16 07:22] LABS: Absolute Basophil Count 0.09 10^3/uL (0.0-0.2); Absolute Lymphocyte Count 1.43 10^3/uL (1.2-3.4); Absolute Monocyte Count 1.18 10^3/uL (0.1-0.8); Absolute Neutrophil Count 19.67 10^3/uL (1.2-6.7)
[2021-09-16 07:35] LABS: ALT 41 U/L (16-63); AST 24 U/L (15-37); Albumin 2.9 g/dL (3.4-5.0); Alkaline Phosphatase 64 U/L (46-116); Anion Gap 6.7 mmol/L (3-11); BUN 23 mg/dL (7-18); Bilirubin, Total 0.7 mg/dL (0.2-1.0); C-Reactive Protein 0.16 mg/dL (0.0-0.3); CO2 29.3 mmol/L (21.0-32.0); Calcium 8.5 mg/dL (8.5-10.1); Chloride 100 mmol/L (98-107); Glucose 93 mg/dL (74-106); Sodium 136 mmol/L (136-145); Total Protein 6.7 g/dL (6.4-8.2)
[2021-09-16] MEDS: Ipratropium/Albuterol 4 GM 120 PUFF INH IH ×4 (07:55→20:10)
[2021-09-16] MEDS: Dexamethasone 4 MG/ML VIAL 6 MG IVP (09:12)
[2021-09-16] MEDS: Zinc Sulfate 220 MG TAB PO (09:15)
[2021-09-16] MEDS: Cholecalciferol (Vitamin D3) 1,000 UNIT TAB 2000 UNITS PO (09:15)
[2021-09-16] MEDS: Enoxaparin 40 MG/0.4 ML SYR SC (09:15)
[2021-09-16] MEDS: Torsemide 20 MG TAB 10 MG PO (09:15)
[2021-09-16] MEDS: Famotidine 20 MG TAB PO ×2 (09:16→20:09)
[2021-09-16] MEDS: Ascorbic Acid 500 MG TAB 1000 MG PO ×2 (09:16→20:09)
[2021-09-16] MEDS: Potassium Chloride 20 MEQ TABCR PO (09:16)
[2021-09-16] MEDS: guaiFENesin 600 MG TABCR PO ×2 (09:16→20:09)
[2021-09-16] MEDS: Benzonatate 200 MG CAP PO ×3 (09:20→20:09)
[2021-09-16] MEDS: Insulin NPH-Human 300 UNITS/3 ML PEN 20 UNIT SC (09:23)
--- NOTE | 2021-09-16 10:48 | PDOC.CMPRO ---
- If Service Date Differs Date of service: 09/16/21 Time of Service: 10:48 Care Management Progress Note S/O: Robert continues to require treatment for Covid. He is being closely monitored by respiratory. He is doing well on 4L NC, O2Sat 92%. He is also using a CPAP at HS, which RT plans to titrate down. Robert has a productive cough and raising yellow sputum, otherwise he feels better overall. A: 61 year old male admitted to [facility] on 09/09/21 for Covid Pneumonia, Respiratory Failure. P: Anticipate, Robert will discharge home via private vehicle with family when medically cleared by provider. He will follow up with his community providers and discharge plan of care as prescribed. No new services are anticipated at this time. CM will continue to access discharge planning needs.
[2021-09-16] MEDS: cefTRIAXone 1 GM/50 ML BAG IVPB (14:40)
--- NOTE | 2021-09-16 16:19 | W.PM.PROGNOT ---
Date of Service Date of service: 09/16/21 Time of Service: 16:19 Assessment and Plan Assessment and plan (1) Acute hypoxemic respiratory failure: Status: Acute Assessment and plan: Due to COVID-19 with what appears to be superimposed bacterial process. Continue ceftriaxone/doxycycline, mucolytics. Continue to titrate O2 down. S/p sarilumab. Continue remdesivir, dexamethasone, IS/acapella. (2) COVID-19: Status: Acute Assessment and plan: As above (3) Essential hypertension: Status: Chronic Assessment and plan: Continue low dose torsemide (4) GERD (gastroesophageal reflux disease): Status: Chronic Assessment and plan: Continue pepcid 20 mg bid Qualifiers: Esophagitis presence: esophagitis presence not specified Qualified Code(s): K21.9 - Gastro-esophageal reflux disease without esophagitis (5) DVT prophylaxis: Status: Acute Assessment and plan: Continue sc lovenox (6) Discharge planning issues: Status: Acute Assessment and plan: Full code Continues to require hospitalization Subjective Subjective Interval history since last seen: Coughing quite a bit. Got 5 hours of sleep on CPAP. Cough is productive - whitish/yellowish, less thick. Has been walking around the room with O2. Lightheaded when doing that. Doing breathing exercises. CP from coughing. No nausea/diarrhea. Not proning, but changing positions from side to side. Exam Narrative Exam Narrative: Today's visit was done over the phone. Mr Before sounded like he was in good spirits, not dyspneic/tachypneic, and had appropriate thought content. Objective Last Vital Signs Temp 35.9 C L 09/16/21 16:17 Pulse 98 H 09/16/21 16:17 Resp 19 09/16/21 16:17 BP 97/73 L 09/16/21 16:17 Pulse Ox 990 H 09/16/21 16:17 Laboratory Results - last 24 hr 09/16/21 09/16/21 07:00 07:00 WBC 22.71 H RBC 5.28 Hgb 16.6 Hct 49.0 MCV 92.8 MCH 31.4 MCHC 33.9 RDW 12.0 Plt Count 444 H MPV 8.8 Immature Gran % 1.5 Neutrophils % 86.6 Lymphocytes % 6.3 Monocytes % 5.2 Eosinophils % 0.0 Basophils % 0.4 Nucleated RBC % 0 Absolute Neutrophils 19.67 H Absolute Lymphocytes 1.43 Absolute Monocytes 1.18 H Absolute Eosinophils 0.00 Absolute Basophils 0.09 Sodium 136 Potassium 4.0 Chloride 100 Carbon Dioxide 29.3 Anion Gap 6.7 BUN 23 H Creatinine 1.0 Estimated GFR/1.73 m2 >= 60.00 Glucose 93 Calcium 8.5 Total Bilirubin 0.7 AST 24 ALT 41 Alkaline Phosphatase 64 C-Reactive Protein 0.16 Total Protein 6.7 Albumin 2.9 L
[2021-09-16] MEDS: guaiFENesin/D-METHORPHAN HB 5 ML CUP 10 ML PO (16:54)
[2021-09-16] MEDS: Insulin Aspart 300 UNITS/3 ML PEN SC (16:55)
[2021-09-16] MEDS: Atorvastatin 40 MG TAB PO (20:10)
[2021-09-16] MEDS: Zolpidem 6.25 MG TABCR PO (21:07)
[2021-09-17] VITALS (13 sets, daily range): BP systolic 108–119; BP diastolic 82–89; PULSE 69–114; RESP 16–21; TEMP 35–37; O2SAT 91–97
[2021-09-17] MEDS: Normal Saline Flush 10 ML SYR IVP ×4 (03:24→19:34)
[2021-09-17] MEDS: DOXYCYCLINE 100 MG in Normal Saline 100 ML IVPB ×2 (03:24→16:16)
[2021-09-17] MEDS: Ipratropium/Albuterol 4 GM 120 PUFF INH IH ×4 (08:11→19:36)
[2021-09-17] MEDS: Insulin NPH-Human 300 UNITS/3 ML PEN 20 UNIT SC (08:33)
[2021-09-17] MEDS: Dexamethasone 4 MG/ML VIAL 6 MG IVP (08:35)
[2021-09-17] MEDS: Cholecalciferol (Vitamin D3) 1,000 UNIT TAB 2000 UNITS PO (08:35)
[2021-09-17] MEDS: Famotidine 20 MG TAB PO ×2 (08:35→19:35)
[2021-09-17] MEDS: Potassium Chloride 20 MEQ TABCR PO (08:36)
[2021-09-17] MEDS: guaiFENesin 600 MG TABCR PO ×2 (08:36→19:35)
[2021-09-17] MEDS: Zinc Sulfate 220 MG TAB PO (08:36)
[2021-09-17] MEDS: Torsemide 20 MG TAB 10 MG PO (08:36)
[2021-09-17] MEDS: Ascorbic Acid 500 MG TAB 1000 MG PO ×2 (08:37→19:35)
[2021-09-17] MEDS: Benzonatate 200 MG CAP PO ×3 (08:37→19:35)
[2021-09-17] MEDS: guaiFENesin/D-METHORPHAN HB 5 ML CUP 10 ML PO (08:56)
[2021-09-17] MEDS: Enoxaparin 40 MG/0.4 ML SYR SC (10:35)
--- NOTE | 2021-09-17 10:58 | CMPROGNOTE_ITS ---
- If Service Date Differs Date of service: 09/17/21 Time of Service: 10:58 Care Management Progress Note S/O: Robert continues to require treatment for Covid. He is being closely monitored by respiratory. He is currently on 2L NC, O2Sat 91%. He is also using a CPAP at HS, which RT is also titrating down. Robert has a productive cough, otherwise he feels better overall. A: 61 year old male admitted to [facility] on 09/09/21 for Covid Pneumonia, Respiratory Failure. P: Anticipate, Robert will discharge home via private vehicle with family when medically cleared by provider. He will follow up with his community providers and discharge plan of care as prescribed. No new services are anticipated at this time. CM will continue to access discharge planning needs.
[2021-09-17] MEDS: cefTRIAXone 1 GM/50 ML BAG IVPB (13:19)
[2021-09-17] MEDS: Insulin Aspart 300 UNITS/3 ML PEN SC (16:16)
[2021-09-17] MEDS: Normal Saline 500 ML 30 ML IV (16:16)
--- NOTE | 2021-09-17 18:14 | W.PM.PROGNOT ---
Date of Service Date of service: 09/17/21 Time of Service: 18:14 Assessment and Plan Assessment and plan (1) Acute hypoxemic respiratory failure: Status: Acute Assessment and plan: Due to COVID-19 with what appears to be superimposed bacterial process. Additionally, now there is a concern for a possible PE, given worsening hypoxia and tachycardia. Obtain CTA chest. Continue ceftriaxone/doxycycline, mucolytics. Continue to titrate O2 down. S/p sarilumab. Continue remdesivir, dexamethasone, IS/acapella. (2) COVID-19: Status: Acute Assessment and plan: As above (3) Essential hypertension: Status: Chronic Assessment and plan: Continue low dose torsemide (4) GERD (gastroesophageal reflux disease): Status: Chronic Assessment and plan: Continue pepcid 20 mg bid Qualifiers: Esophagitis presence: esophagitis presence not specified Qualified Code(s): K21.9 - Gastro-esophageal reflux disease without esophagitis (5) DVT prophylaxis: Status: Acute Assessment and plan: Continue sc lovenox (6) Discharge planning issues: Status: Acute Assessment and plan: Full code Continues to require hospitalization Subjective Subjective Interval history since last seen: Mr Ramires was requiring 2L of O2 by NC this morning. Then this afternoon, his O2 requirement increased back to 4L and he became tachycardic -110s-120s- which did not improve when oxygenation was increased to 4L. He denies dizziness, chest pain, shortness of breath, nausea. Cough is still productive of pendleton sputum. Exam Narrative Exam Narrative: General: Pleasant obese male, sitting up in a chair, no distress/dyspnea/tachynea/cyanosis HEENT: EOMI, MMM Heart: RRR, no m/r/g Lungs: Diminished breath sounds B Abdomen: soft, nontender, nondistended Extremities: trace edema BLEs Objective Last Vital Signs Temp 36 C L 09/17/21 16:24 Pulse 104 H 09/17/21 16:24 Resp 17 09/17/21 16:24 BP 108/82 09/17/21 16:24 Pulse Ox 92 09/17/21 16:24
[2021-09-17] MEDS: Omnipaque 350 MG/ML 100 ML BTL IJ (18:32)
--- NOTE | 2021-09-17 19:12 | DI.CT_ITS ---
Exam(s) CT CHEST PE CTA EXAM: CT CHEST PE CTA CLINICAL HISTORY: worsening hypoxia, tachycardia, COVID-19, ?PE. TECHNIQUE: Imaging Protocol: CT angiography of the chest was performed using pulmonary embolus gumaro col. Multi planar reconstructions were performed. CONTRAST MATERIAL: Intravenous: Omnipaque 350 Contrast volume: 100 cc COMPARISON: CT CT CHEST PE CTA from 09/09/2021 FINDINGS: CHEST: PULMONARY ARTERIES: There are no intraluminal filling defects to suggest acute pulmonary emboli. LUNGS: Persistent bilateral infiltrates consistent with probable Covid-19 pneumonia. Minimal if any significant improvement from the prior study. No pleural effusions. No focal findings in trachea an d mainstem bronchi.. There are no pleural effusions. MEDIASTINUM: There is no hilar nor mediastinal adenopathy. Visualized thyroid unremarkable. CARDIAC: Heart size is upper normal. There is no pericardial effusion.Caliber of the thoracic aorta is within normal limits. There is no significant shift of the interventricular septum. PARTIALLY VISUALIZED UPPERMOST ABDOMEN: No adrenal masses. No splenomegaly. There are subcapsular l ucency in the right hepatic lobe measuring approximately 1.5 x 1.3 cm. Not possible to evaluate afte r clear on this type arterial phase study. Recommend follow-up ultrasound determine this is a typica l hemangioma or possibly other pathology. OSSEOUS: No significant osseous lesions.. IMPRESSION: 1. Stable appearance of the extensive bilateral lung infiltrates which are suspicious for Covid pneum onia..No improvement compared to the prior CT scan of 09/09/2021. There are no pleural effusions nor intrathoracic adenopathy. 2. No evidence of acute pulmonary emboli. 3. Incidental subtle hepatic finding as described above. Recommend follow-up ultrasound. RADIATION DOSE DELIVERED: 591.78mGy.cm Total DLP DATA REPOSITORY: All CT scans at this facility are submitted to the National Radiology Data Registry (NRDR) Dose Index Registry (DIR) with the [employer] ([employer]). RADIATION OPTIMIZATION: All CT scans at this facility use at least one of these dose optimization te chniques: automated exposure control; mA and/or kV adjustment per patient size (includes targeted exa ms where dose is matched to clinical indication); or iterative reconstruction.
[2021-09-17] MEDS: Atorvastatin 40 MG TAB PO (19:35)
--- NOTE | 2021-09-17 19:49 | DI.VRAD_ITS ---
PROCEDURE INFORMATION: Exam: CTA Chest With Contrast Exam date and time: 09/17/2021 6:14 PM Age: 61 years old Clinical indication: Tachypnea; Patient HX: Worsening hypoxia, tachycardia, covid 19 pos. , ? Pe TECHNIQUE: Imaging protocol: Computed tomographic angiography of the chest with contrast. 3D rendering (Not supervised by radiologist): MIP and/or 3D reconstructed images were created by the technologist. Radiation optimization: All CT scans at this facility use at least one of these dose optimization techniques: automated exposure control; mA and/or kV adjustment per patient size (includes targeted exams where dose is matched to clinical indication); or iterative reconstruction. Contrast material: OMNI-PAQUE 350; Contrast volume: 100 ml; Contrast route: INTRAVENOUS (IV); COMPARISON: CT CHEST PE CTA 09/09/2021 6:48 AM FINDINGS: Pulmonary arteries: Normal. No pulmonary emboli. Aorta: Unremarkable. No aortic aneurysm. No aortic dissection. Lungs: Review of the lung windows shows the extensive areas of diffuse ground-glass opacification have largely collapsed into irregular areas of parenchymal stranding with areas of consolidation, honeycombing, and bronchiectasis. Pleural spaces: Unremarkable. No pneumothorax. No pleural effusion. Heart: Unremarkable. No cardiomegaly. No pericardial effusion. Lymph nodes: Unremarkable. No enlarged lymph nodes. Bones/joints: Unremarkable. No acute fracture. Soft tissues: Unremarkable. IMPRESSION: 1. No evidence of pulmonary embolism. 2. Progression of the ground-glass consolidation to areas of parenchymal stranding, consolidation, and bronchiectasis as described above. Findings are consistent with the clinical history of COVID-19 pneumonia. Continued follow-up until clear is recommended. Dictated and Authenticated by: Damien Boland MD. Ordering:GABY Mak MD
[2021-09-17] MEDS: Zolpidem 6.25 MG TABCR PO (22:30)
[2021-09-18] VITALS (10 sets, daily range): BP systolic 94–117; BP diastolic 75–88; PULSE 64–100; RESP 16–20; TEMP 35.8–36.2; O2SAT 91–97
[2021-09-18] MEDS: DOXYCYCLINE 100 MG in Normal Saline 100 ML IVPB ×2 (05:02→16:51)
[2021-09-18] MEDS: Normal Saline Flush 10 ML SYR IVP ×2 (07:04→10:55)
[2021-09-18 07:26] LABS: Abs Immature Grans 0.39 10^3/uL (0.0-0.06); Basophils % 0.1; HCT 46.4 % (40.0-50.0); HGB 15.8 g/dL (13.5-17.5); Immature Grans % 1.9; Lymphocytes % 5.9; MCH 31.2 pg (27.0-33.0); MCHC 34.1 % (32.0-36.0); MCV 91.7 fL (80-95); MPV 9.1 fL (8.0-11.0); Monocytes % 7.3; Neutrophils % 84.8; Nucleated RBC 0 %; Platelet Count 359 10^3/uL (130-400); RBC 5.06 10^6/uL (4.36-5.78); RDW 12.5 % (11.8-14.1); RDW-SD 41.1 fL; WBC 20.07 10^3/uL (4.4-10.8)
[2021-09-18 07:31] LABS: ALT 51 U/L (16-63); AST 22 U/L (15-37); Albumin 2.6 g/dL (3.4-5.0); Alkaline Phosphatase 68 U/L (46-116); Anion Gap 5.6 mmol/L (3-11); BUN 23 mg/dL (7-18); Bilirubin, Direct 0.2 mg/dL (0.0-0.2); Bilirubin, Total 0.6 mg/dL (0.2-1.0); C-Reactive Protein 0.11 mg/dL (0.0-0.3); CO2 28.4 mmol/L (21.0-32.0); Calcium 8.3 mg/dL (8.5-10.1); Chloride 102 mmol/L (98-107); Glucose 112 mg/dL (74-106); Magnesium 1.9 mg/dL (1.8-2.4); PHOSPHORUS 4.1 mg/dL (2.6-4.7); Potassium 4.3 mmol/L (3.5-5.1); Sodium 136 mmol/L (136-145); Total Protein 5.9 g/dL (6.4-8.2)
[2021-09-18 07:36] LABS: Absolute Basophil Count 0.02 10^3/uL (0.0-0.2); Absolute Lymphocyte Count 1.18 10^3/uL (1.2-3.4); Absolute Monocyte Count 1.47 10^3/uL (0.1-0.8); Absolute Neutrophil Count 17.02 10^3/uL (1.2-6.7)
[2021-09-18 08:00] LABS: INR 1.2 (0.9-1.1); Procalcitonin < 0.1 ng/mL; Prothrombin Time 11.8 sec (9.3-11.0)
[2021-09-18] MEDS: Ipratropium/Albuterol 4 GM 120 PUFF INH IH ×4 (08:07→21:13)
[2021-09-18 08:26] LABS: D-Dimer 344 ng/mlFEU (<500)
[2021-09-18 08:40] LABS: Ferritin 739 ng/mL (26-388)
[2021-09-18] MEDS: Potassium Chloride 20 MEQ TABCR PO (09:32)
[2021-09-18] MEDS: Torsemide 20 MG TAB 10 MG PO (09:33)
[2021-09-18] MEDS: Benzonatate 200 MG CAP PO ×3 (09:33→21:12)
[2021-09-18] MEDS: Ascorbic Acid 500 MG TAB 1000 MG PO ×2 (09:33→21:12)
[2021-09-18] MEDS: guaiFENesin 600 MG TABCR PO ×2 (09:33→21:12)
[2021-09-18] MEDS: Zinc Sulfate 220 MG TAB PO (09:33)
[2021-09-18] MEDS: Famotidine 20 MG TAB PO ×2 (09:33→21:12)
[2021-09-18] MEDS: Cholecalciferol (Vitamin D3) 1,000 UNIT TAB 2000 UNITS PO (09:33)
[2021-09-18] MEDS: Enoxaparin 40 MG/0.4 ML SYR SC (09:34)
[2021-09-18] MEDS: Insulin NPH-Human 300 UNITS/3 ML PEN 20 UNIT SC (09:36)
[2021-09-18] MEDS: Dexamethasone 4 MG TAB 6 MG PO (14:02)
[2021-09-18] MEDS: cefTRIAXone 1 GM/50 ML BAG IVPB (14:03)
--- NOTE | 2021-09-18 16:54 | W.PM.PROGNOT ---
Date of Service Date of service: 09/18/21 Time of Service: 16:50 Assessment and Plan Assessment and plan (1) Acute hypoxemic respiratory failure: Status: Acute Assessment and plan: Due to COVID-19 with what appears to be superimposed bacterial process. CTA of the chest negative for PE. O2 requirement is down to 3L. Uses CPAP at night. Continue ceftriaxone/doxycycline (day 4), mucolytics. Continue to titrate O2 down. S/p sarilumab. Continue remdesivir, dexamethasone, IS/acapella. (2) COVID-19: Status: Acute Assessment and plan: As above (3) Essential hypertension: Status: Chronic Assessment and plan: Continue low dose torsemide (4) GERD (gastroesophageal reflux disease): Status: Chronic Assessment and plan: Continue pepcid 20 mg bid Qualifiers: Esophagitis presence: esophagitis presence not specified Qualified Code(s): K21.9 - Gastro-esophageal reflux disease without esophagitis (5) DVT prophylaxis: Status: Acute Assessment and plan: Continue sc lovenox (6) Discharge planning issues: Status: Acute Assessment and plan: Full code Continues to require hospitalization Subjective Subjective Interval history since last seen: On 3L of O2 today. I'm feeling really good. I can breathe better. More energy. Less LEES. Sputum is getting clearer. No pain. CP when coughing. Soft stools. Exam Narrative Exam Narrative: Patient's interview is conducted via the phone. A&Ox3. He sounds in great spirits. He is not coughing. No dyspnea/tachypnea. Objective Last Vital Signs Temp 35.9 C L 09/18/21 15:34 Pulse 95 H 09/18/21 15:34 Resp 18 09/18/21 15:34 BP 94/75 L 09/18/21 15:34 Pulse Ox 93 09/18/21 15:34 Laboratory Results - last 24 hr 09/18/21 09/18/21 09/18/21 06:40 06:40 06:40 WBC 20.07 H RBC 5.06 Hgb 15.8 Hct 46.4 MCV 91.7 MCH 31.2 MCHC 34.1 RDW 12.5 Plt Count 359 MPV 9.1 Immature Gran % 1.9 Neutrophils % 84.8 Lymphocytes % 5.9 Monocytes % 7.3 Eosinophils % 0.0 Basophils % 0.1 Nucleated RBC % 0 Absolute Neutrophils 17.02 H Absolute Lymphocytes 1.18 L Absolute Monocytes 1.47 H Absolute Eosinophils 0.00 Absolute Basophils 0.02 PT INR D-Dimer Sodium 136 Potassium 4.3 Chloride 102 Carbon Dioxide 28.4 Anion Gap 5.6 BUN 23 H Creatinine 1.0 Estimated GFR/1.73 m2 >= 60.00 Glucose 112 H Calcium 8.3 L Phosphorus 4.1 Magnesium 1.9 Ferritin 739 H Total Bilirubin 0.6 Conjugated Bilirubin 0.2 AST 22 ALT 51 Alkaline Phosphatase 68 C-Reactive Protein 0.11 Total Protein 5.9 L Albumin 2.6 L Procalcitonin < 0.1 09/18/21 06:40 WBC RBC Hgb Hct MCV MCH MCHC RDW Plt Count MPV Immature Gran % Neutrophils % Lymphocytes % Monocytes % Eosinophils % Basophils % Nucleated RBC % Absolute Neutrophils Absolute Lymphocytes Absolute Monocytes Absolute Eosinophils Absolute Basophils PT 11.8 H INR 1.2 H D-Dimer 344 Sodium Potassium Chloride Carbon Dioxide Anion Gap BUN Creatinine Estimated GFR/1.73 m2 Glucose Calcium Phosphorus Magnesium Ferritin Total Bilirubin Conjugated Bilirubin AST ALT Alkaline Phosphatase C-Reactive Protein Total Protein Albumin Procalcitonin
--- NOTE | 2021-09-18 18:26 | PDOC.CMPRO ---
- If Service Date Differs Date of service: 09/18/21 Time of Service: 18:26 Care Management Progress Note S/O: CM spoke to Vic over the phone today, as he remains on Covid 19 precautions. He reported that he is feeling good today, and feels that he is improving daily. His O2 requirements did increase overnight, but he believes that it will be weaned today. He is not on O2 at home, so he is hopeful that he will be able to be on room air prior to returning home. CM will continue to follow. A: 61 year old male admitted to [facility] on 09/09/21 for Covid Pneumonia, Respiratory Failure. P: Anticipate Robert will discharge home via private vehicle with family when medically cleared by provider. He will follow up with his community providers and discharge plan of care as prescribed. No new services are anticipated at this time. CM will continue to access discharge planning needs.
[2021-09-18] MEDS: Zolpidem 6.25 MG TABCR PO (21:11)
[2021-09-18] MEDS: Insulin Aspart 300 UNITS/3 ML PEN SC (21:12)
[2021-09-18] MEDS: Atorvastatin 40 MG TAB PO (21:12)
[2021-09-19] VITALS (12 sets, daily range): BP systolic 98–120; BP diastolic 70–95; PULSE 89–117; RESP 16–18; TEMP 35.1–36; O2SAT 89–94
[2021-09-19] MEDS: DOXYCYCLINE 100 MG in Normal Saline 100 ML IVPB ×2 (04:03→14:35)
[2021-09-19] MEDS: Ascorbic Acid 500 MG TAB 1000 MG PO ×2 (08:00→19:57)
[2021-09-19] MEDS: Ipratropium/Albuterol 4 GM 120 PUFF INH IH ×4 (08:33→19:57)
[2021-09-19] MEDS: Dexamethasone 4 MG TAB 6 MG PO (08:59)
[2021-09-19] MEDS: guaiFENesin 600 MG TABCR PO ×2 (09:00→19:57)
[2021-09-19] MEDS: Zinc Sulfate 220 MG TAB PO (09:00)
[2021-09-19] MEDS: Potassium Chloride 20 MEQ TABCR PO (09:00)
[2021-09-19] MEDS: Famotidine 20 MG TAB PO ×2 (09:00→19:57)
[2021-09-19] MEDS: Cholecalciferol (Vitamin D3) 1,000 UNIT TAB 2000 UNITS PO (09:01)
[2021-09-19] MEDS: Torsemide 20 MG TAB 10 MG PO (09:01)
[2021-09-19] MEDS: Benzonatate 200 MG CAP PO ×3 (09:01→19:57)
[2021-09-19] MEDS: Insulin NPH-Human 300 UNITS/3 ML PEN 20 UNIT SC (09:02)
[2021-09-19] MEDS: Insulin Aspart 300 UNITS/3 ML PEN SC ×3 (12:06→22:35)
[2021-09-19] MEDS: Enoxaparin 40 MG/0.4 ML SYR SC (12:06)
--- NOTE | 2021-09-19 12:17 | PDOC.CMPRO ---
- If Service Date Differs Date of service: 09/19/21 Time of Service: 12:17 Care Management Progress Note S/O: CM spoke to Vic over the phone, due to his current Covid restrictions. He reported that he is feeling much better, and is now on 1L supplemental O2. He anticipates that he will be weaned down today or tomorrow to room air. He stated that he doesn't want to phillips his discharge, and is comfortable remaining at [facility] until he is medically cleared. Per report, if he is weaned off supplemental O2, he will have an exercise oximetry, preparing him for discharge, which may be in the next day or two. He is independent at baseline, CM does not anticipate the need for any services at home. CM will continue to follow. A: 61 year old male admitted to [facility] on 09/09/21 for Covid Pneumonia, Respiratory Failure. P: Anticipate Robert will discharge home via private vehicle with family when medically cleared by provider. He will follow up with his community providers and discharge plan of care as prescribed. No new services are anticipated at this time. CM will continue to access discharge planning needs.
[2021-09-19] MEDS: guaiFENesin/D-METHORPHAN HB 5 ML CUP 10 ML PO (12:20)
[2021-09-19] MEDS: cefTRIAXone 1 GM/50 ML BAG IVPB (14:34)
--- NOTE | 2021-09-19 16:54 | W.PM.PROGNOT ---
Date of Service Date of service: 09/19/21 Time of Service: 16:54 Assessment and Plan Assessment and plan (1) Acute hypoxemic respiratory failure: Status: Acute Assessment and plan: d/t COVID-19 pneumonia w superimposed bacterial component Day #5 Ceftriaxone and doxycycline: will continue through today and repeat his procalcitonin and if negative then dc antibiotics Now down to 1 LPM oxygen per NC; hopefully can wean off over next 24 to 48 hr and dc home Day # 11 decadron; finished 10 days of Remdesivir; s/p Siralumab treatment on admission cont. proning, IS and acapella and mobilization. expect dc home in the next 1 to 2 days. (2) COVID-19: Status: Acute Assessment and plan: Patient is inquiring as to when he can get vaccinated for COVID-19. I told him to wait for 3 to 4 wks post recovery but to get the full vaccine series w/ the mRNA vaccines. (3) Discharge planning issues: Status: Acute Assessment and plan: home soon as above (4) DVT prophylaxis: Status: Acute Assessment and plan: on enoxaparin 40 mg SC daily Subjective Subjective Interval history since last seen: Before states that he is feeling really good. No dyspnea. Cough has improved and minimal productive of white mucous. No fevers. Now down to 1 LPM NC oxygen. No CP and no leg pains or edema. Exam Narrative Exam Narrative: Obese middle aged white male sitting up in his chair watching TV. alert and oriented; no respiratory distress, he is able to talk in complete paragraphs w/out dyspnea. No accessory respiratory muscle use Lungs: some fine bibasilar rales; no wheezing or rhonchi Heart: RRR w/o murmur,rub or gallops Abdomen: obese, soft, nontener w/ normal bowel sounds Legs/feet: no edema or tenderness Objective Last Vital Signs Temp 36 C L 09/19/21 14:45 Pulse 104 H 09/19/21 14:45 Resp 18 09/19/21 14:45 BP 98/70 L 09/19/21 14:45 Pulse Ox 89 L 09/19/21 14:45
[2021-09-19] MEDS: Atorvastatin 40 MG TAB PO (19:57)
[2021-09-19] MEDS: Normal Saline Flush 10 ML SYR IVP (19:58)
[2021-09-19] MEDS: Zolpidem 6.25 MG TABCR PO (22:35)
[2021-09-20] VITALS (11 sets, daily range): BP systolic 107–130; BP diastolic 81–91; PULSE 84–97; RESP 16–18; TEMP 36–36.2; O2SAT 86–99
[2021-09-20] MEDS: DOXYCYCLINE 100 MG in Normal Saline 100 ML IVPB (04:20)
[2021-09-20] MEDS: Normal Saline Flush 10 ML SYR IVP ×3 (04:21→21:05)
[2021-09-20] MEDS: Normal Saline 500 ML 30 ML IV (04:21)
[2021-09-20] MEDS: Zinc Sulfate 220 MG TAB PO (07:48)
[2021-09-20] MEDS: Dexamethasone 4 MG TAB 6 MG PO (07:48)
[2021-09-20] MEDS: Cholecalciferol (Vitamin D3) 1,000 UNIT TAB 2000 UNITS PO (07:48)
[2021-09-20] MEDS: Benzonatate 200 MG CAP PO ×3 (07:48→21:04)
[2021-09-20] MEDS: Ascorbic Acid 500 MG TAB 1000 MG PO ×2 (07:48→21:04)
[2021-09-20] MEDS: guaiFENesin 600 MG TABCR PO ×2 (07:48→21:04)
[2021-09-20] MEDS: Famotidine 20 MG TAB PO ×2 (07:49→21:05)
[2021-09-20] MEDS: Torsemide 20 MG TAB 10 MG PO (07:49)
[2021-09-20] MEDS: Potassium Chloride 20 MEQ TABCR PO (07:49)
[2021-09-20] MEDS: Ipratropium/Albuterol 4 GM 120 PUFF INH IH ×4 (07:49→21:05)
[2021-09-20] MEDS: Insulin NPH-Human 300 UNITS/3 ML PEN 20 UNIT SC (07:50)
[2021-09-20] MEDS: Enoxaparin 40 MG/0.4 ML SYR SC (12:07)
--- NOTE | 2021-09-20 12:51 | PGE_ITS ---
Date of Service Date of service: 09/20/21 Time of Service: 12:51 Assessment and Plan Assessment and plan (1) Acute hypoxemic respiratory failure: Status: Acute Assessment and plan: d/t COVID-19 pneumonia w superimposed bacterial component Status post 5 days of treatment with ceftriaxone and doxycycline. Not running a fever and with normal procalcitonin levels. Ceftriaxone doxycycline discontinued. Patient weaned to room air this morning with low normal to slightly below normal oxygen saturations running from 88 to 91%. We will continue use of CPAP at night and encourage ambulation and mobilization and use of I-S and Acapella. Day # 12 decadron; finished 10 days of Remdesivir; s/p Siralumab treatment on admission cont. proning, IS and acapella and mobilization. expect dc home in the next 24 to 48 hours. (2) COVID-19: Status: Acute Assessment and plan: Patient is inquiring as to when he can get vaccinated for COVID-19. I told him to wait for 3 to 4 wks post recovery but to get the full vaccine series w/ the mRNA vaccines. (3) Discharge planning issues: Status: Acute Assessment and plan: home soon as above (4) DVT prophylaxis: Status: Acute Assessment and plan: on enoxaparin 40 mg SC daily Subjective Subjective Interval history since last seen: Patient feeling markedly better. He has been on room air with a pulse oximetry of 93 to 96% with only a brief dip down to 86% this morning. He reportedly passed his walk test in the room per RT however when I entered his room he was coming out of the bathroom was coughing a nonprod uctive cough and was obviously short of breath with activity. His dyspnea did calm down once he sat down however even after 5 minutes of rest his pulse oximetry only came up to 89 to 90% on room air. I told Mr. Before that I think needs 1 more day of continued treatment with steroids before being discharged home in fact he may need a steroid taper once he goes home. Exam Narrative Exam Narrative: Middle-aged obese white male ambulating back from the bathroom to his chair with a nonproductive cough and mildly dyspneic. Upon sitting down his respirations improved and he seemed to be much better pulse oximetry was only running between 88 to 90% on room air. Lungs are clear to auscultation Heart is regular rate and rhythm Abdomen is obese soft nontender Extremities without peripheral edema Objective Last Vital Signs Temp 36.2 C L 09/20/21 07:45 Pulse 91 H 09/20/21 07:45 Resp 18 09/20/21 07:45 BP 107/81 09/20/21 07:45 Pulse Ox 93 09/20/21 07:52
[2021-09-20] MEDS: Atorvastatin 40 MG TAB PO (21:04)
[2021-09-20] MEDS: Zolpidem 6.25 MG TABCR PO (23:00)
[2021-09-21 06:22] VITALS: BP 112/88; PULSE 95; RESP 16; TEMP 36; O2SAT 96
[2021-09-21 07:23] LABS: Absolute Lymphocyte Count 1.18 10^3/uL (1.2-3.4); Basophils % 0.2; Eosinophils % 0.1; HCT 48.8 % (40.0-50.0); HGB 16.5 g/dL (13.5-17.5); Immature Grans % 1.6; Lymphocytes % 6.4; MCH 31.7 pg (27.0-33.0); MCHC 33.8 % (32.0-36.0); MCV 93.7 fL (80-95); MPV 9.4 fL (8.0-11.0); Monocytes % 7.3; Neutrophils % 84.4; Nucleated RBC 0 %; Platelet Count 316 10^3/uL (130-400); RBC 5.21 10^6/uL (4.36-5.78); RDW 12.6 % (11.8-14.1); RDW-SD 42.8 fL; WBC 18.37 10^3/uL (4.4-10.8)
[2021-09-21 07:25] LABS: Absolute Basophil Count 0.04 10^3/uL (0.0-0.2); Absolute Eosinophil Count 0.02 10^3/uL (0.0-0.7); Absolute Monocyte Count 1.34 10^3/uL (0.1-0.8)
[2021-09-21 07:57] LABS: ALT 55 U/L (16-63); AST 21 U/L (15-37); Albumin 2.8 g/dL (3.4-5.0); Alkaline Phosphatase 77 U/L (46-116); Anion Gap 5.2 mmol/L (3-11); BUN 24 mg/dL (7-18); Bilirubin, Total 0.8 mg/dL (0.2-1.0); CO2 29.8 mmol/L (21.0-32.0); Calcium 8.5 mg/dL (8.5-10.1); Chloride 101 mmol/L (98-107); Ferritin 735 ng/mL (26-388); Glucose 110 mg/dL (74-106); Potassium 4.2 mmol/L (3.5-5.1); Sodium 136 mmol/L (136-145)
[2021-09-21 08:09] LABS: D-Dimer 253 ng/mlFEU (<500)
[2021-09-21 08:19] LABS: C-Reactive Protein < 0.05 mg/dL (0.0-0.3)
[2021-09-21] MEDS: Cholecalciferol (Vitamin D3) 1,000 UNIT TAB 2000 UNITS PO (08:23)
[2021-09-21] MEDS: Dexamethasone 4 MG TAB 6 MG PO (08:23)
[2021-09-21] MEDS: Torsemide 20 MG TAB 10 MG PO (08:25)
[2021-09-21] MEDS: Benzonatate 200 MG CAP PO (08:25)
[2021-09-21] MEDS: Ascorbic Acid 500 MG TAB 1000 MG PO (08:26)
[2021-09-21] MEDS: Famotidine 20 MG TAB PO (08:26)
[2021-09-21] MEDS: Potassium Chloride 20 MEQ TABCR PO (08:26)
[2021-09-21] MEDS: guaiFENesin 600 MG TABCR PO (08:26)
[2021-09-21] MEDS: Zinc Sulfate 220 MG TAB PO (08:26)
[2021-09-21] MEDS: Insulin NPH-Human 300 UNITS/3 ML PEN 20 UNIT SC (08:27)
[2021-09-21] MEDS: Ipratropium/Albuterol 4 GM 120 PUFF INH IH ×2 (08:28→11:48)
[2021-09-21 08:34] VITALS: BP 111/84; PULSE 80; RESP 18; TEMP 35.6; O2SAT 90
[2021-09-21 09:19] VITALS: O2SAT 90
[2021-09-21] MEDS: Enoxaparin 40 MG/0.4 ML SYR SC (10:08)
[2021-09-21] MEDS: guaiFENesin/D-METHORPHAN HB 5 ML CUP 10 ML PO (11:53)
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
--- NOTE | 2021-09-21 14:03 | PDOC.CMDIS ---
- If Service Date Differs Date of service: 09/21/21 Time of Service: 14:03 LACE Index Scoring Tool - Questions: Length of Stay (in days): 7 - 13 Acuity (Admit via E.D.?): Yes E.D. Visits: 2 - Answers: Total Score: 10 Risk of Readmission: High Risk Care Management Discharge Reason for Hospitalization: Covid Pneumonia, Acute Respiratory Failure Discharge Plan: Vic is discharged home with no new services. He will follow up with his PCP and discharge plan of care as prescribed. He is transported home by family via private vehicle. Patient/Family Education Needs: Review of discharge instructions, limitations, medications, and follow up plan of care; discuss Ask Me Three and self management.
== END 2021-09-21 14:20 | disposition home or self-care (01) | DRG 177 ==
LOC: ER 08:02 → ICU 08:40 → MS 09-13 19:43
PROVIDERS: Internal Medicine; Admitting Provider Internal Medicine; Emergency Provider Student in an Organized Health Care Education/Training Program; PCP Family Medicine; Visit Provider Internal Medicine
DX: U07.1 COVID-19 (principal); J96.01 Acute respiratory failure with hypoxia; J15.9 Unspecified bacterial pneumonia; J12.82 Pneumonia due to coronavirus disease 2019; I10 Essential (primary) hypertension; K21.9 Gastro-esophageal reflux disease without esophagitis; Z87.891 Personal history of nicotine dependence; M75.51 Bursitis of right shoulder; D75.1 Secondary polycythemia; M54.50 Low back pain, unspecified; G47.00 Insomnia, unspecified; R05.8 Other specified cough
CPT/HCPCS: 36415; 71275; 80048; 80053; 80061; 80076; 82306; 82550; 82805; 84145; 86704; 86706; 86803; 86900; 86901; 87340; 87389; 87637; 93005; 94640; 96361; 96374; 99285; J1650; J3590; 82728; 83605; 83735; 83880; 84100; 84484; 85025; 85379; 85610; 85730; 86140; 87070; 87205; 87899; 93010; 94660; 99231; 99232; 99233; 99239; 99291; J0696; J1100; J1941; J3490; J7620; J8540

== ENCOUNTER 2021-10-07 15:40 | Outpatient (REF) | payer OTHER, SELFPAY ==
[2021-10-07 21:55] LABS: Bilirubin Negative (Negative); Blood Trace-intact (Negative); Clarity Clear (Clear); Glucose Negative (Negative); Ketones Negative (Negative); Leukocyte Esterase Negative (Negative); Nitrite Negative (Negative); Urobilinogen 0.2 EU/dL (Up TO 0.2)
[2021-10-07 23:01] LABS: Bacteria Negative HPF (Negative); C & S Indicated? No; Casts Negative LPF (Negative); Crystals Negative HPF (Negative); Epithelial Cells Negative HPF (Negative); Mucus Negative (Negative); Other Cells Negative (Negative); RBC Negative HPF (0-2); WBC 0-2 HPF (0-5)
== END 2021-10-07 15:41 | disposition home or self-care (01) ==
LOC: LBN 15:40
PROVIDERS: PCP Family Medicine; Visit Provider Family Medicine
DX: D75.1 Secondary polycythemia (principal); K76.89 Other specified diseases of liver; R35.0 Frequency of micturition; U09.9 Post COVID-19 condition, unspecified; Z74.09 Other reduced mobility
CPT/HCPCS: 81003; 81015

== ENCOUNTER 2021-10-14 12:41 | Outpatient (CLI) | payer OTHER, SELFPAY ==
--- NOTE | 2021-10-14 07:15 | DI.US_ITS ---
APPROVED REPORT EXAM: Comprehensive 2D, Doppler, and color-flow Echocardiogram Patient Location: Out-Patient Charging Manipulator: Brittany Aguilar RDCS ([place]) Indications: SOB, H/O COVID, Chest heaviness Other Information Study Quality: Fair. Technically limited study due to body habitus. Conclusion Normal left ventricular wall thickness and chamber size. Estimated ejection fraction is 60 to 65%. Wall motion is normal Normal right ventricular size and systolic function Both atria are normal in size No structural or hemodynamically significant valvular disease Dilated ascending aorta measuring 3.93 cm Sinus tachycardia rate approximately 115 was present throughout the study Wall motion Left Ventricle The left ventricle is normal size. The left ventricular systolic function is normal. The left ventric ular ejection fraction is within the normal range. There is normal left ventricular wall thickness. T here is normal LV segmental wall motion. There is no ventricular septal defect visualized. LVEF is 58 %. Right Ventricle The right ventricle is normal size. The right ventricular systolic function is normal. Atria The left atrium size is normal. The right atrium size is normal. The interatrial septum is intact wit h no evidence for an atrial septal defect. Aortic Valve The aortic valve is normal in structure. Aortic valve is trileaflet. There is no aortic valvular sten osis. No aortic regurgitation is present. Mitral Valve The mitral valve is normal in structure. No evidence of mitral valve stenosis. Trace mitral regurgita tion. Tricuspid Valve The tricuspid valve is normal in structure. There is no tricuspid valve stenosis. Trace to mild tricu spid regurgitation. Pulmonic Valve The pulmonary valve is normal in structure. There is no pulmonic valvular stenosis. There is no pulmo diann valvular regurgitation. Great Vessels The aortic root is normal in size. The ascending aorta is mildly dilated. Aortic arch is normal in ca liber. The IVC was not well visualized. Pericardium There is no pericardial effusion. 2D Dimensions IVSD d PLAX 1.03 cm M: 0.6-1.2 LV Vol A2C d MOD 80.8 mL LVPW d PLAX 1.04 cm M: 0.6 - 1.2 LV Vol A4C d MOD 110.6 mL LVID d PLAX 4.27 cm M: 4.2 - 5.8 LA vol/ BSA A2C s A-L 14.7 mL/m2 LVDs 2.90 cm M: 2.5 - 4.0 LA Area A2C s MOD 13.98 cm2 Ao Root d 3.29 cm M: 3.1 - 3.7 LV EF A4C MOD 58.3 % RA Area A4C 10.80 cm2 LV EF A2C MOD 58.2 % RA Vol/ BSA A4C s A-L 9.7 mL/m2 LV EF Biplane MOD 57.6 % Ao Asc Diam d 3.93 cm M: 2.6 - 3.4 SV 54.39 mL LV EF Teichholz 59.7 % SV Index 24.63 mL/m2 LVEF (Dejesus's) 57.63 % M: 52 - 72 LV Volume 68.55 mL M: 62 - 150 LV Volume Index 31.01 mL/m2 M: 34 - 74 LV Vol Biplane MOD 94.4 mL FS 31.45 % M-Mode TAPSE 1.76 cm (M/F) >1.7 LV Diastology MV E' medial 0.065 (>0.07 m/s) E/A Ratio 0.7 LV E/e MED 9.40 (<14) MV E Vmax 0.61 (0.4-1.3 m/s) MV E' lateral 0.083 (>0.1 m/s) MV A Vmax 0.85 (0.4-1.3 m/s) LV E/e LAT 7.35 (<14) MV E/A Ratio 0.71 MV E/E' medial 9.43 MV E/E' lateral 7.35 Aortic Valve LVOT Area 3.08 cm2 AoV Area Vmax 2.54 cm2 LVOT Vmax 1.02 m/s AoV Area/ BSA (Vmax) 1.15 cm2/m2 LVOT Mean Jose R. 0.74 m/s JACQUELYN Mean Jose R. 2.55 cm2 LVOT Peak Grad 4.2 mmHg JACQUELYN Mean Jose R. Index 1.16 cm2/m2 LVOT Mean Grad 2.5 mmHg LVOT VTI 0.157 m LVOT Diam s 1.95 cm AoV Vmax 1.24 m/s Velocity Ratio 0.82 AoV Mean Jose R. 0.90 m/s AoV Peak Grad 6.1 mmHg LVOT SV 48.34 mL AoV Mean Grad 3.5 mmHg AoV VTI 0.181 m AoV Area VTI 2.68 cm2 AoV Area/ BSA (VTI) 1.21 cm/m2 Mitral Valve MV DT 212 (160-240 msec) MV PHT 62 msec MV Area PHT 3.57 cm2 MV VTI 0.124 m MV Area VTI 3.91 (4.0-6.0 cm2) Pulmonary Valve PV Vmax 0.98 (0.5-1.5 m/s) RVOT Peak Gr. 2.16 mmHg PV Peak Grad 3.8 mmHg RVOT Mean Gr. 1.15 mmHg PV Mean Grad 1.9 mmHg RVOT VTI 0.102 m PV VTI 0.144 m RVOT Vmax 0.74 m/s Tricuspid Valve TR Peak Grad 40.8 mmHg TR Vmax 3.19 m/s RA Pressure 3.00 mmHg RVSP (TR) 43.8 mmHg
== END 2021-10-14 13:01 ==
PROVIDERS: PCP Family Medicine; Visit Provider Family Medicine
DX: R06.02 Shortness of breath (principal); R07.89 Other chest pain; U09.9 Post COVID-19 condition, unspecified; Z74.09 Other reduced mobility; I77.810 Thoracic aortic ectasia; R00.0 Tachycardia, unspecified
CPT/HCPCS: 93306

== ENCOUNTER 2021-10-30 02:45 | Outpatient (CLI) | payer OTHER, SELFPAY ==
[2021-10-30 11:06] LABS: HCT 46.7 % (40.0-50.0); HGB 15.6 g/dL (13.5-17.5); MCH 31.5 pg (27.0-33.0); MCHC 33.4 % (32.0-36.0); MCV 94.3 fL (80-95); MPV 8.7 fL (8.0-11.0); Platelet Count 241 10^3/uL (130-400); RBC 4.95 10^6/uL (4.36-5.78); RDW 13.7 % (11.8-14.1); RDW-SD 47.6 fL; WBC 7.27 10^3/uL (4.4-10.8)
[2021-10-30 11:28] LABS: Hemoglobin A1C 5.6 % (<5.7)
[2021-10-30 12:47] LABS: ALT 42 U/L (16-63); AST 35 U/L (15-37); Albumin 3.9 g/dL (3.4-5.0); Alkaline Phosphatase 62 U/L (46-116); BUN 9 mg/dL (7-18); Bilirubin, Total 0.6 mg/dL (0.2-1.0); CREATININE 0.8 mg/dL (0.70-1.30); Calcium 8.9 mg/dL (8.5-10.1); Calculated LDL 104 mg/dL (<100); Chloride 105 mmol/L (98-107); Cholesterol 171 mg/dL (<200); Glucose 93 mg/dL (74-106); HDL Cholesterol 39 mg/dL (40-60); Potassium 3.9 mmol/L (3.5-5.1); Sodium 142 mmol/L (136-145); TSH (W/Ref FT4) 1.13 uIU/mL (0.36-3.74); Total Protein 6.9 g/dL (6.4-8.2); Triglyceride 144 mg/dL (<150)
[2021-10-30 13:21] LABS: NT-proBNP 82 pg/mL (<300)
[2021-10-30 22:42] LABS: PSA, Screening 3.4 ng/mL (0.0-4.5)
== END 2021-10-30 02:46 | disposition home or self-care (01) ==
LOC: LBO 02:45
PROVIDERS: PCP Family Medicine; Visit Provider Family Medicine
DX: Z00.00 Encounter for general adult medical examination without abnormal findings (principal); D75.1 Secondary polycythemia; I10 Essential (primary) hypertension; E11.9 Type 2 diabetes mellitus without complications; R05.8 Other specified cough; U09.9 Post COVID-19 condition, unspecified; Z74.09 Other reduced mobility
CPT/HCPCS: 36415; 80053; 80061; 84153; 85027; 83036; 83880; 84443

== ENCOUNTER 2022-05-29 08:01 | Day surgery (SDC) | payer OTHER, SELFPAY ==
--- NOTE | 2022-05-28 18:58 | COLE_ITS ---
Colonoscopy Report Date of procedure: 05/29/22 Pre-op diagnosis general: crc Post-op diagnosis procedure note: other (Minor diverticula and polyp at 70 cm) Surgeon: Moni Jerome Anesthesia Type: General:No Airway Estimated blood loss (mL): 0 Pathology: other Complications: None Disposition: same day Prep: Miralax/Dulcolax Retraction Time: 9 Procedure Description: After informed consent was obtained the patient was taken to the procedure room and placed in a left decubitous position. Monitors were applied and a time out was done. The patients name, date of , procedure, allergies to medications and metal in their body was reviewed. The patient was then sedated. Once sedated and comfortable a rectal exam was done. External exam was normal. Internal exam revealed a normal sphincter tone and no palpable masses. The scope was then introduced and retrofelexed. No internal hemorrhoids were identified. The scope was then advanced to the cecum w/out difficulty. The TI and appendiceal orifice were identified. The prep was BB PS 2 in all harris for a total of 6. . The scope was then slowly retracted over 9 minutes back into the rectum. There is 0.75 cm area of irregularity at 70 cm. It is normal under NBI, but It does appear to be polypoid. It Is removed with 3 bites of the cold forcep. All specimen is retrieved and no bleeding is noted. There are very minor diverticula confined in the sigmoid colon. There is no signs of active bleeding or infection. The scope was removed and the patient was woken up and taken back to Same day surgery in stable condition. The patient tolerated the procedure well and there were no immediate complica tions. Follow up: The patient should follow up in 5 to 7 years path pending years unless they develop changes in bowel habits or other new gastrointestinal complaints.
--- NOTE | 2022-05-28 18:59 | PDOC.DSDIS_ITS ---
Discharge Plan Disposition Patient Disposition: HOME Condition: Good Discharge Details Reason For Visit: colon scope Attending Provider: Moni Jerome Primary Care Provider: Svitlana Norton Home Meds and New Rx's Prescriptions: No Action omeprazole 20 mg capsule,delayed release(DR/EC) 20 mg PO DAILY PRN (Reason: gerd) Qty: 90 4RF losartan-hydrochlorothiazide 100-25 mg tablet 1 tab PO QAM metoprolol succinate 25 mg tablet extended release 24 hr 25 mg PO HS Discharge Instructions Additional Instructions: DSU Colonoscopy Post- Op Instructions Instructions for Everyone who is given Anesthesia: For your safety, please do the following for the next twenty-four (24) hours: *Do Not operate a motor vehicle (car, truck, motorcycle, etc.) *Do Not drink alcoholic beverages or use any recreational drugs for the first 24 hours or while taking pain medications. The medications in your body may have a reaction that can be dangerous. *Do Not make any important decisions or sign any important papers. Findings: -Minor diverticula. Make sure you are moving your bowels on a regular basis and not straining to go to the bathroom. -Small polyp. My office will send a letter in 2 to 3 weeks time detailing as to what type of polyp it is and when we want you to repeat the colonoscopy- Follow up: 1. No lifting over 20 pounds or strenuous activity for the first 24 hours after your procedure. After 24 hours there are no restrictions on your activity but you may feel fatigued for a few days. 2. After you arrive home you may have a light meal and return to your normal diet as you can tolerate it without feeling sick to your stomach. 3. You may have a bloated, gaseous feeling in your belly (abdomen) after a colonoscopy. Passing gas and belching will help. Walking or lying down on your left side with your knees flexed may relieve the discomfort. Call the office at [phone] (Office) or [phone] (Hospital) right away if you notice any of the following: a.Vomiting of blood or ?coffee ground stools?. b.Rectal bleeding 1Tbsp, blood clots or continuous bleeding. c.Severe belly (abdominal) pain. d.A hard distended belly (abdomen) and an inability to pass gas. 4. Please don?t expect to have a normal BM (bowel movement) for 2-3 days after your procedure. 5. If there are questions regarding the findings of your procedure, please contact your doctor 6. If you are unable to contact your doctor with a problem, contact the hospital at [phone]. 7. Continue all your regular medications unless directed otherwise. I understand the above instructions and have no questions. Signature of Patient or Adult Escort Name of Responsible Adult Escort Signature of Nurse Date/Time Activity:: see above Diet:: see above Discharge Orders Discharge Orders: Discharge Order (Routine); Ordered 05/28/22 Ordered By: Moni Jerome DS: Diagnosis Discharge Diagnosis (1) Diverticula of colon: Status: Acute
[2022-05-29 08:27] VITALS: BP 138/101; PULSE 97; RESP 18; TEMP 36.5; O2SAT 97
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
[2022-05-29] MEDS: Lactated Ringers 1,000 ML 80 ML IV (08:45)
[2022-05-29 08:48] VITALS: BMI 38.9
--- NOTE | 2022-05-29 09:40 | BOWEL_PTH ---
PATIENT: Keyla,Robert Bateman LOC: [facility] U#:[id number] AGE/SX: 62/M ROOM: RE05/29/[address]: Moni Jerome : 1960 BED: DIS: 05/29/2022 SPEC #: [id number] RECD: 05/29/22 10:07 STATUS: JEFFERY RE #: [id number] EILEEN: 05/29/22 09:[address]: Moni Jerome DEPT: Surgical Specimen RECD BY: Jenny Estrella ENTERED: 05/29/22 10:08 SP TYPE: Bowel OTHR DR: Svitlana oNrton MD, DC Tissues: 1 - BIOPSY BOWEL Procedures: GROSS AND MICRO LEVEL 4 Comments: [id number]
[2022-05-29 09:57] VITALS: BP 112/84; PULSE 97; RESP 17; TEMP 36.7; O2SAT 94
[2022-05-29 10:30] VITALS: BP 126/95; PULSE 95; RESP 18; TEMP 36.5; O2SAT 95
--- NOTE | 2022-05-29 11:09 | W.ANESPOSTOP ---
Postoperative Evaluation Date, Time and Location Date Performed: 05/29/22 Time Performed: 10:35 Patient Location: Day Surgery Unit Vital Signs Most Recent Imported Vital Signs: Most Recent Vital Signs Temp Pulse Resp BP Pulse Ox 36.5 C 95 H 18 126/95 H 95 05/29/22 10:30 05/29/22 10:30 05/29/22 10:30 05/29/22 10:30 05/29/22 10:30 Pain Score Most Recent Pain Score: Most Recent Pain Score Pain Level 0 05/29/22 10:30 Assessment Mental Status: Awake (Alert & Oriented to Patient Baseline) Airway and Respiratory Function: Patent airway with normal (patient baseline) respiratory exam Cardiovascular Function: Hemodynamically Stable Hydration Status: Adequately Hydrated Nausea & Vomiting: No Nausea or Vomiting Pain: Pt. Denies Any Pain Peripheral Nerve Block: Patient did not receive a nerve block
== END 2022-05-29 11:00 | disposition home or self-care (01) ==
PROVIDERS: PCP Family Medicine; Visit Provider Surgery
PROC: 0DJD8ZZ Inspection of Lower Intestinal Tract, Via Natural or Artificial Opening Endoscopic (ICD-10-PCS; CPT 45378; principal; 2022-05-29 09:00)
DX: Z12.11 Encounter for screening for malignant neoplasm of colon (principal); K63.5 Polyp of colon; K57.30 Diverticulosis of large intestine without perforation or abscess without bleeding
CPT/HCPCS: 45380; 88305

== ENCOUNTER → 2022-06-19 00:22 | Outpatient (CLI) | payer OTHER, SELFPAY ==
--- NOTE | 2022-06-19 07:45 | DI.RAD_ITS ---
Exam(s) XR HAND LT COMPLETE EXAM: XR HAND LT COMPLETE CLINICAL HISTORY: b/l hand pain, m79.642 TECHNIQUE: COMPARISON: No exams were available for comparison FINDINGS: Three views were obtained. There are mild degenerative changes of the joints of the carpus and mild degenerative changes of the IP joints, with mild narrowing of the cartilaginous joint spaces and soraya inal osteophyte formation. Most prominent findings are at the IP joint of the thumb and the DIP join t of the index finger. No other significant bony abnormality seen. IMPRESSION: Mild degenerative changes as described above. RADIATION DOSE DELIVERED: Total DLP
--- NOTE | 2022-06-19 07:45 | DI.RAD_ITS ---
Exam(s) XR HAND RT COMPLETE EXAM: XR HAND RT COMPLETE CLINICAL HISTORY: hand pain, bilat, m79.641 TECHNIQUE: COMPARISON: CR XR HAND LT COMPLETE from 06/19/2022 FINDINGS: Three views were obtained. There are mild degenerative changes of the joints of the carpus and mild degenerative changes of the IP joints, most significantly involving the IP joint of the thumb and the DIP joint of the index finger, where there are moderate marginal osteophytes noted. Slight narrowin g of cartilaginous joint spaces of the IP joints noted. IMPRESSION: Mild DJD as described above. RADIATION DOSE DELIVERED: Total DLP
== END ==
PROVIDERS: PCP Family Medicine; Visit Provider Family Medicine
DX: M19.041 Primary osteoarthritis, right hand (principal); M19.042 Primary osteoarthritis, left hand
CPT/HCPCS: 73130

== ENCOUNTER → 2022-08-07 00:28 | Outpatient (CLI) | payer OTHER, SELFPAY ==
--- NOTE | 2022-08-07 06:45 | DI.RAD_ITS ---
Exam(s) XR LUMBAR SPINE COMPLETE EXAM: XR LUMBAR SPINE COMPLETE CLINICAL HISTORY: left LBP,m54.50. TECHNIQUE: 2D digital imaging was performed. COMPARISON: No exams were available for comparison FINDINGS: Five views: No evidence fracture or listhesis. No pars defects. Mild disc space narrowing at L4-5 level noted. Other disc spaces exhibit normal height with the exception of mild narrowing of L1-2 and anterior os teophytes at this level, mostly right-sided. There is no scoliosis in the lumbar spine. Bone densit y normal. No osseous lesions. Minimal facet joint degenerative changes. Sacroiliac joints appear u nremarkable. There is no scoliosis. IMPRESSION: As above. DATA REPOSITORY: RADIATION DOSE DELIVERED:
== END ==
PROVIDERS: PCP Family Medicine; Visit Provider Family Medicine
DX: M48.061 Spinal stenosis, lumbar region without neurogenic claudication (principal)
CPT/HCPCS: 72110

== ENCOUNTER 2022-09-01 09:37 | Day surgery (SDC) | payer OTHER, SELFPAY ==
[2022-09-01 10:51] VITALS: BP 108/78; PULSE 107; RESP 20; TEMP 36.5; O2SAT 97
[2022-09-01] MEDS: Sodium Bicarbonate 50 MEQ/50 ML VIAL (11:19)
[2022-09-01] MEDS: Lidocaine 1% Pres-Free W/EPI 1/200,000 10 ML VIAL (11:19)
[2022-09-01 11:30] VITALS: BP 124/90; PULSE 95; RESP 18; TEMP 36.5; O2SAT 98
--- NOTE | 2022-09-01 11:41 | W.PM.DSUDISC ---
Date of service: 09/01/22 Time of Service: 11:41 Discharge Plan Disposition Patient Disposition: Home Condition: Good Discharge Details Reason For Visit: Right Trigger Thumb Attending Provider: Javier Rebolledo Primary Care Provider: Svitlana Norton Home Meds and New Rx's Prescriptions: New acetaminophen 500 mg tablet 1,000 mg PO Q8H PRN (Reason: pain) Qty: 60 3RF Continued omeprazole 20 mg capsule,delayed release(DR/EC) 20 mg PO DAILY PRN (Reason: gerd) Qty: 90 4RF semaglutide 7 mg tablet 7 mg PO DAILY Qty: 90 4RF losartan-hydrochlorothiazide 100-25 mg tablet 1 tab PO QAM ibuprofen 600 mg tablet 600 mg PO TID PRN (Reason: pain) Qty: 90 1RF Discharge Instructions Stand Alone Forms: Kesha Barron Finger Release Activity:: Elevate Remove Dressings/Wound Care:: 48 hours Shower/Bathe:: 48 hours Diet:: As Tolerated Discharge Orders Discharge Orders: Discharge Order (Routine); Ordered 09/01/22 Ordered By: Javier Rebolledo DS: Diagnosis Discharge Diagnosis (1) Trigger thumb, right thumb: Status: Acute
--- NOTE | 2022-09-01 14:20 | W.PM.OP ---
Date of service: 09/01/22 Time of Service: 11:30 Operative Note Operative Note DATE OF PROCEDURE: 09/01/22 PRE-OP DIAGNOSIS: Right Trigger Thumb POST-OP DIAGNOSIS: same PROCEDURE: Trigger Finger Release - Right Thumb SURGEON: Javier Rebolledo ANESTHESIA TYPE: Local By Surgeon Refer to Anesthesia Record ESTIMATED BLOOD LOSS: 0 PATHOLOGY: none sent COMPLICATIONS: None Patient was transported to: same day Patient's condition: stable Indications: I have seen Vic in clinic for symptoms of a trigger finger. The catching, clicking, locking, and pain limited function. The diagnosis of trigger finger was evident. The symptoms had not responded to conservative measures. I discussed trigger finger release with the patient. I reviewed the risks of the procedure to include, but not limited to, bleeding, infection, pain, stiffness, incomplete release, damage to nerves or vessels, continued catching, recurrence. Despite these risks, the patient elected to proceed. Findings: There was a tightened A1 renato which was released. The flexor tendons were inspected and the patient was able to move the finger without any catching, clicking, or locking. Procedure Description: Vic was greeted in the preoperative holding area where the correct side was identified and marked. The consent was reviewed with the patient and signed. All questions were answered. He was taken back to the operating room. The patient was placed into the supine position on the operating room table with the right arm on an arm board. All bony prominences were well padded. No prophylactic antibiotics were administered since this was a clean, elective hand surgical case. The right arm was then prepped with Chloraprep and draped in a standard fashion with stockinette and extremity drape. A timeout to confirm correct identity, side and site, procedure, allergies, anesthesia, and medical concerns was performed. The surgical site was marked as a longitudinal incision directly over the A1 renato of the involved digit. This was confirmed with palpation during finger flexion. This area, overlying the metacarpal head, was then anesthetized with 1% Lidocaine. The patient tolerated this well and once the anesthetic had setup, the procedure began. A longitudinal incision was made through skin only, approximately 1cm. The deep tissues were dissected bluntly. Once the A1 renato and flexor tendons were identified the soft tissue including neurovascular structures were retracted medially and laterally. There were no crossing structures over the A1 renato. The proximal edge of the renato was identified and the renato was incised with tenotomy scissors. There was a release of the tendons once this was fully released. The tendons were then removed from the wound and inspected. Excess synovium was resected. The tendons were then returned and the patient was asked to move the finger into deep flexion and back to extension. There was no recreation of the pre-operative symptoms. The hand was then once more inspected for any A0 renato or area of possible constriction. The wound was then irrigated and the skin was closed with a 4-0 Nylon. This was dressed with gauze and a Conform dressing. The patient tolerated the procedure well and was returned to the Same Day Surgery area in a stable condition suffering no known complication.
== END 2022-09-01 11:44 | disposition home or self-care (01) ==
PROVIDERS: PCP Family Medicine; Visit Provider Student in an Organized Health Care Education/Training Program
PROC: (CPT 26055; principal; 2022-09-01 11:45)
DX: M65.311 Trigger thumb, right thumb (principal)
CPT/HCPCS: 26055

== ENCOUNTER 2022-10-20 03:43 | Outpatient (CLI) | payer OTHER, SELFPAY ==
[2022-10-20] MEDS: Albuterol HFA 18 GM 200 PUFF INH IH (09:17)
[2022-10-20] MEDS: Inhaler, Assist Device 1 EACH MC (09:17)
--- NOTE | 2022-10-21 14:25 | W.PFT ---
Date of service: 10/20/22 Time of Service: 08:01 Pulmonary Function Test Result Requesting Provider Duchene Indications: [facility] Interpretation Spirometry: There is no airflow limitation. There is no significant bronchodilator response. Lung Volumes: Normal lung volumes Diffusion Capacity: Normal diffusion Airway Pressure: Normal airways resistance. Impression Normal pulmonary function testing. Clinical Correlation therefore is recommended.
== END 2022-10-20 03:44 | disposition home or self-care (01) ==
LOC: RT 03:43
PROVIDERS: PCP Family Medicine; Visit Provider Student in an Organized Health Care Education/Training Program
DX: J84.10 Pulmonary fibrosis, unspecified (principal); Z87.891 Personal history of nicotine dependence; Z86.16 Personal history of COVID-19
CPT/HCPCS: 94060; 94726; 94729

== ENCOUNTER 2023-06-01 08:38 | Outpatient (CLI) | payer OTHER, SELFPAY ==
--- NOTE | 2023-06-01 08:30 | DI.RAD_ITS ---
Exam(s) XR SHOULDER RT COMPLETE 2+V EXAM: XR SHOULDER RT COMPLETE 2+V CLINICAL HISTORY: RIGHT SHOULDER PAIN. TECHNIQUE: 2D digital imaging was performed. Three views. COMPARISON: CR XR SHOULDER RT COMPLETE 2+V from 03/26/2021 FINDINGS: BONES: No acute fracture is present. No bony destructive lesion is seen. JOINTS: No dislocation present. Severe narrowing of the inferior glenohumeral joint. Prominent inferior spur from the humeral head. Spur at the inferior glenoid. Mild spurring of the AC joint. The. Changes at greater tuberosity. SOFT TISSUE: Normal. IMPRESSION: Advanced degenerative changes of the glenohumeral joint. DATA REPOSITORY: RADIATION DOSE DELIVERED:
== END 2023-06-01 08:39 | disposition home or self-care (01) ==
LOC: DIORS 08:38
PROVIDERS: PCP Family Medicine; Visit Provider Student in an Organized Health Care Education/Training Program
DX: M19.011 Primary osteoarthritis, right shoulder (principal)
CPT/HCPCS: 73030

== ENCOUNTER 2023-08-30 05:25 | Outpatient (CLI) | payer OTHER, SELFPAY ==
[2023-08-30 12:21] LABS: HCT 51.6 % (40.0-50.0); HGB 17.8 g/dL (13.5-17.5); MCH 31.9 pg (27.0-33.0); MCHC 34.5 % (32.0-36.0); MCV 93 fL (80-95); MPV 9.4 fL (8.0-11.0); Platelet Count 310 10^3/uL (130-400); RBC 5.58 10^6/uL (4.36-5.78); RDW 12.7 % (11.8-14.1); RDW-SD 43.3 fL
[2023-08-30 12:37] LABS: Hemoglobin A1C 5.3 % (<5.7)
[2023-08-30 12:43] LABS: ALT 44 U/L (16-63); AST 31 U/L (15-37); Albumin 3.9 g/dL (3.4-5.0); Alkaline Phosphatase 58 U/L (46-116); Anion Gap 10.8 mmol/L (3-11); BUN 15 mg/dL (7-18); Bilirubin, Total 0.6 mg/dL (0.2-1.0); CO2 27.2 mmol/L (21.0-32.0); CREATININE 1.2 mg/dL (0.70-1.30); Calcium 9.6 mg/dL (8.5-10.1); Calculated LDL 93 mg/dL (<100); Chloride 102 mmol/L (98-107); Cholesterol 162 mg/dL (<200); Estimated GFR 68.38 (mL/min/1.73m2); Glucose 135 mg/dL (74-106); HDL Cholesterol 38 mg/dL (40-60); Potassium 3.4 mmol/L (3.5-5.1); Sodium 140 mmol/L (136-145); Total Protein 7.5 g/dL (6.4-8.2); Triglyceride 158 mg/dL (<150)
== END 2023-08-30 05:26 | disposition home or self-care (01) ==
LOC: LOS 05:25
PROVIDERS: PCP Family Medicine; Visit Provider Family Medicine
DX: I10 Essential (primary) hypertension (principal); Z00.00 Encounter for general adult medical examination without abnormal findings; E11.9 Type 2 diabetes mellitus without complications
CPT/HCPCS: 36415; 80053; 80061; 85027; 83036

== ENCOUNTER → 2024-04-12 01:00 | Outpatient (CLI) | payer OTHER, SELFPAY ==
--- NOTE | 2024-04-12 06:30 | DI.CT_ITS ---
Exam(s) CT UPPER EXTREMITY RT WO EXAM: CT UPPER EXTREMITY RT WO CLINICAL HISTORY: SURGICAL PLANNING,primary oa rt shoulder,m19.011. TECHNIQUE: Imaging Protocol: Axial computed tomography images with coronal and sagittal reformatted images were created and reviewed. COMPARISON: CT CT CHEST HIGH RESOLUTION from 10/22/2022 CR XR SHOULDER RT COMPLETE 2+V from 06/01/2023 FINDINGS: Bones: The osseous structures and articular surfaces are intact. Bony alignment is satisfactory. N o cellulitic or osteomyelitic changes are identified. Marked degenerative changes are seen at the gl enohumeral joint characterized by joint space narrowing and osteophytes. There are mild degenerative changes seen at the acromioclavicular joint. Subchondral cysts are present in the distal clavicle. No lytic or sclerotic lesions are identified. Soft Tissues: There are stable pulmonary nodules in the right lung. Stable parenchymal scarring is p resent visualized in the right upper, middle and lower lobes. No new infiltrates are seen. IMPRESSION: Marked degenerative changes seen at the glenohumeral joint. RADIATION DOSE DELIVERED: Total DLP Total DLP DATA REPOSITORY: All CT scans at this facility are submitted to the National Radiology Data Registry (NRDR) Dose Index Registry (DIR) with the [employer] (A[employer]). RADIATION OPTIMIZATION: All CT scans at this facility use at least one of these dose optimization te chniques: automated exposure control; mA and/or kV adjustment per patient size (includes targeted exa ms where dose is matched to clinical indication); or iterative reconstruction.
--- NOTE | 2024-04-12 06:30 | DI.MRI_ITS ---
Exam(s) MR UPPER JOINT RT WO EXAM: MR UPPER JOINT RT WO CLINICAL HISTORY: SURGICAL PLANNING,primary oa rt shoulder, bursitis,m75.51,m19.011. TECHNIQUE: Multiplanar multisequence MRI was performed. COMPARISON: MR MR UPPER JOINT RT WO from 12/24/2020 CR XR SHOULDER RT COMPLETE 2+V from 06/01/[address] UPPER EXTREMITY RT WO from 04/12/2024 FINDINGS: BONES: There is no fracture or contusion pattern. Subchondral cysts are seen in the humeral head. JOINTS: Moderate degenerative changes are seen at the acromioclavicular joint. There are marked dege nerative changes seen at the glenohumeral joint with cartilage loss, joint space narrowing and osteop hytes present. There is a small amount of fluid in the joint space. TENDONS: Supraspinatus: There are few foci of hyperintense signal seen in the supraspinatus tendon suspicious for partial tear. Infraspinatus: There is tendinosis of the infraspinatus tendon. There is a focus of hyperintense sig nal seen at the insertion site on the bursal surface of the infraspinatus tendon consistent with a pa rtial tear. Subscapularis: There is tendinosis of the subscapularis tendon. Teres [place]: Unremarkable. Biceps and [place]: Unremarkable. MUSCLES: Unremarkable. GLENOID LABRUM: There is hyperintense signal seen beneath the posterior superior labrum suspicious fo r tear. SOFT TISSUES: Unremarkable. LIGAMENTS: Unremarkable. OTHER: Subacromial and subdeltoid bursae are unremarkable. IMPRESSION: 1. Marked degenerative changes at the glenohumeral joint. Moderate degenerative changes at the acrom ioclavicular joint. 2. Tendinosis of the supraspinatus, infraspinatus and subscapularis tendons with findings of partial intrasubstance small tears of the supraspinatus and infraspinatus tendons. 3. Abnormal signal seen associated with the posterior and superior labrum suspicious for tear. 4. No significant rotator cuff muscle atrophy. DATA REPOSITORY:
== END ==
PROVIDERS: PCP Family Medicine; Visit Provider Student in an Organized Health Care Education/Training Program
DX: M19.011 Primary osteoarthritis, right shoulder (principal); M75.51 Bursitis of right shoulder
CPT/HCPCS: 73200; 73221

== ENCOUNTER 2024-06-16 07:19 | Day surgery (SDC) | payer OTHER, SELFPAY ==
[2024-06-16] VITALS (27 sets, daily range): BP systolic 87–127; BP diastolic 65–95; PULSE 86–97; RESP 10–22; TEMP 36.2–36.6; O2SAT 92–99; BMI 36.8
--- NOTE | 2024-06-16 07:12 | W.PM.DSUDISC ---
Date of service: 06/16/24 Time of Service: 13:00 Discharge Plan Disposition Patient Disposition: Home Condition: Stable Discharge Details Attending Provider: Edis Ramos Primary Care Provider: Svitlana Norton Home Meds and New Rx's Prescriptions: New tramadol 50 mg tablet 50 mg PO Q8H PRN (Reason: severe pain) Qty: 12 0RF naproxen 250 mg tablet 250 - 500 mg PO BID PRN (Reason: moderate pain and swelling) Qty: 40 0RF Continued omeprazole 20 mg capsule,delayed release(DR/EC) 20 mg PO DAILY PRN (Reason: gerd) Qty: 90 4RF losartan-hydrochlorothiazide 100-25 mg tablet 1 tab PO QAM Qty: 90 5RF amlodipine 5 mg tablet 5 mg PO DAILY Qty: 90 6RF tirzepatide 7.5 mg/0.5 mL pen injector 7.5 mg subcut QWEEK Qty: 6 5RF acetaminophen 500 mg tablet 1,000 mg PO Q8H PRN (Reason: pain) Qty: 60 3RF Discontinued ibuprofen 600 mg tablet 600 mg PO TID PRN (Reason: pain) Qty: 90 1RF Discharge Instructions Additional Instructions: Surgery: Right reverse total shoulder arthroplasty with biceps tenodesis Activity: Do not lift anything heavier than a coffee. You should keep your arm at your side in a relatively neutral position at all times except for gentle range of motion exercises, physical therapy, and essential activities. You should use the sling whenever you are out of the house. At home it is best to remove the sling and rest the arm on a pillow at your side or support the operative side with your other hand. A physical therapy prescription will be sent electronically to start in about 3 weeks. Standard Reverse TSA Protocol. Prescriptions: Naproxen 250 mg take 1-2 every 12 hours with a meal as needed for moderate pain Tramadol 50 mg take 1 every 6-8 hours as needed for severe pain You may use [id number] Tylenol (acetaminophen) as needed for mild pain. These pain medications may be taken all at once or in different combinations as needed. Also, recommend Colace (docusate) as a stool softener as surgery and pain medicine cause constipation. You may try zsmb-phj-[id number] diphenhydramine (Benadryl) 25-50 mg nightly as a sleep aid Dressings: Leave dressing in place until follow-up. Keep clean and dry at all times. No showers please. Follow-up: 10-[address] Ramos You may take off the leg compression stockings this evening at home. You may also leave them on a few days longer if you have a history of leg swelling or edema. Please call the office during business hours with any questions or concerns. Let us know right away if you develop any redness, drainage, fevers, chest pain, or trouble breathing. Do not drink alcohol or drive for at least 24 hours after anesthesia. Stand Alone Forms: Anesthesia Discharge Inst., Anes.Nerve Block Instructions, Itzel Gibson (DSU) Referrals: Edis Ramos MD [ [facility] STAFF PHYSICIAN] - 06/27/24 8:45 am Discharge Orders Discharge Orders: Discharge Order (Routine); Ordered 06/16/24 Ordered By: Teresa Lee DS: Diagnosis Discharge Diagnosis (1) Primary osteoarthritis, right shoulder: Status: Acute
--- NOTE | 2024-06-16 07:23 | W.PM.OP ---
Date of service: 06/16/24 Time of Service: 10:00 Operative Note Operative Note DATE OF PROCEDURE: 06/16/24 PRE-OP DIAGNOSIS: Right: 1. End-stage glenohumeral arthritis 2. Long head of the biceps tendinopathy 3. Partial rotator cuff tearing POST-OP DIAGNOSIS: same PROCEDURE: Right: 1. Reverse total shoulder arthroplasty, CPT # 93563 2. Open biceps tenodesis, CPT # 61781 The planning assistant was medically required as this procedure involves retraction, protection of neurovascular structures, and manipulation of multiple instruments and implants at the same time, which cannot be done without a skilled planning assistant. SURGEON: Edis Ramos STRAIGHT PIN MAKING MACHINE OPERATOR: Teresa Lee ANESTHESIA TYPE: Local By Surgeon, General LMA/ETT and Primary Nerve Block Refer to Anesthesia Record ESTIMATED BLOOD LOSS: 300 COMPLICATIONS: None Patient was transported to: PACU Patient's condition: stable Implants: [employer] modular glenoid system baseplate 24 mm, 10 degree full wedge oblique [employer] modular glenoid system central post 25 mm [employer] modular glenoid system peripheral locking screws 28 mm inferior, 28 mm superior, 16 mm posterior, 16 mm anterior [employer] modular glenoid system glenosphere 42 +4 mm lateralized [employer] humeral stem 135 degrees size 9 [employer] suture cup size 39 posterior offset [employer] humeral insert size 39 +3 mm combo 42 Indications: Please see complete medical record for details. Findings: Significant long head biceps tenosynovitis, anterior capsular contracture, partial tearing subscapularis and anterior superior rotator cuff, and profound glenohumeral joint space cartilage loss and deformity Procedure Description: In the operating room, general anesthesia was induced. The patient was positioned beachchair on the operating room table. All bony prominences were well-padded. Preoperative antibiotics were administered. The shoulder was prepped with DuraPrep to avoid chlorhexidine allergy and draped in the usual sterile fashion for shoulder arthroplasty. The correct patient, procedure, and side of the procedure were all verified prior to incision. The deltopectoral approach was preinjected with 0.25% bupivacaine containing epinephrine and taken to the anterior shoulder. Care was taken to bluntly dissect the interval between the deltoid and pectoralis major muscles and to identify the cephalic vein within its fat stripe. The the vein was mobilized laterally. Subdeltoid space and conjoined tendon were freed of adhesions. The long head of the biceps tendon was identified just lateral to the lesser tuberosity. The uppermost margin of the pectoralis major tendon was released from the proximal humerus. The long head of the biceps tendon was tenodesed in situ using SutureTape in a [id number]-gz-[id number] fashion securing it superior margin the pectoralis major tendon. The biceps tendon was amputated and followed proximally to identify the rotator interval. A subscapularis peel was performed taking care to release the entire tendon in a full-thickness fashion from superior to inferior and lateral to medial while bringing the arm gradually into external rotation. There was significant challenge with the release given the significant contracture as well as a large anterior osteophytes. Care was taken to avoid the axillary nerve by only working on the bone inferiorly and medially. The subscap was tagged for traction, but could not be adequately mobilized for later repair so it was then tenotomized and carefully working lower around the humeral head osteophytes were removed and additional subscapularis and soft tissue released until the arm was finally brought into external rotation. The supraspinatus was debrided of partial tearing along its leading edge over superior osteophyte. The remainder of the superior to posterior rotator cuff was preserved. Hemostasis was achieved as best possible, there was a generalized ooze from all surfaces. The anatomic neck was cut using an oscillating saw with the humeral head bone brought back table in case there was a need for future bone grafting. The proximal humerus was delivered from the wound with adduction and external rotation. The proximal humeral protection plate was used to provisionally confirm suture cup and glenosphere size. Reamers were started appropriately posterior to the bicipital groove taking care to maintain in line approach with the humeral canal. Sequential reaming was done from size 5 up to size 8. Next, the broaches were sequentially used to open the proximal humerus starting with a size 5 and going up to size 9 and sunk to the appropriate depth while maintaining approximately 25 degrees retroversion. There was good metaphyseal fit and rotational control of the proximal humerus with this size. The posterior offset guide was used to ream for the suture cup. Attention was then turned to the glenoid and retractors were placed and a circumferential release performed using the long head of the biceps remnant to remove soft tissue about the glenoid rim. Care was taken inferiorly to work on bone only between 5 and 7:00 o'clock and bluntly elevate tissues inferiorly. The VIP guide was placed on the glenoid and used to confirm placement and trajectory of the central guidepin. The guidepin was inserted and advanced just through the far cortex ensuring adequate central fixation length. The glenoid was prepared according to computational scientist specifications for a augmented baseplate and central post. The baseplate was impacted onto the glenoid surface. The locking guide was then used to drill and place appropriately lengthed inferior, superior, anterior, and posterior screws. The jifu-mza-kunfplzve reamer was used to confirm adequate peripheral reaming. The glenosphere was applied with the steel box toe inserter and then impacted to engage the Lester taper. It was then locked with appropriate countersinking of the setscrew. The glenosphere was inspected and found to have good fit, appropriate positioning, and no soft tissue or bony impingement. Attention was then turned back to the proximal humerus. The humeral trial cup was connected. Trialing was commenced with +3 mm liner. The shoulder was too tight to reasonable be reduced so the humeral component was removed, some additional osteophyte and marginal bone was removed. The 9 mm trial broach was sent back down slightly lower than before, the posterior suture cup reamer used again, and then trialing redone. The shoulder was reduced and taken through good range of motion. There was excellent stability and good tension on the deltoid and conjoined. The trial components were removed from the proximal humerus. The wound was copiously irrigated with normal saline. The the proximal humeral stem and suture cup were assembled and brought over the proximal humerus. A small amount of vancomycin powder was distributed in the proximal humerus. The humeral component and suture cup were impacted into place. Given the challenging reduction and redislocation, the final +3 mm liner was attached as the implant sat in a similar location. Combo liner chosen to accommodate a larger glenosphere for the significant arthritis and deformity while preserving proximal humerus bone with the rotator cuff. The final implants were reduced, there was excellent stability, slight shock given the intact rotator cuff less than 25% somewhat like an anatomic shoulder replacement, and good range of motion past wide external rotation 75 degrees and 90 degrees abduction forward elevation, and internal rotation. The shoulder was copiously irrigated with Betadine and normal saline. Vancomycin powder was distributed deeply about the shoulder and through subcutaneous tissues. The deltopectoral interval was well approximated. Subcutaneous tissue was irrigated then closed using 2-0 Monocryl in a buried interrupted fashion. Skin was closed using 3-0 Monocryl in a buried subcuticular fashion. Skin glue was applied to the incision. A silver impregnated bandage was placed over the incision. The extremity was placed into a shoulder immobilizer. The patient awoke from anesthesia without complication and was taken to the recovery room in stable condition.
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
[2024-06-16] MEDS: Lactated Ringers 1,000 ML 30 ML IV (08:38)
--- NOTE | 2024-06-16 09:28 | W.ANESNERVE ---
Nerve Block Single Injection Procedure Date and Time Date Performed: 06/16/24 Procedure Start: 09:04 Location Where Procedure Performed Procedure Location: Day Surgery Unit Reason Performed: Postoperative Analgesia Requesting Provider: Edis Ramos Timeout Performed Timeout Performed: Yes Monitoring Used ECG, Blood Pressure, SpO2 and See EMR for corresponding vital signs Sterility Sterility: Hand Hygiene, Surgical Cap, Surgical Mask, Sterile Gloves and Betadine Sedation Given During Procedure Sedation Given (Indicate Dose Given): Versed IV Dose:: 2mg Patient Mental Status Patient Mental Status: Sedate with meaningful communication Nerve Block 1st Nerve Block: Laterality: Right Block Type: Interscalene Ultrasound Image Saved?: Yes Needle / Catheter Used: 80mm SonoPlex II Local Anesthetic Bolus (Indicate Dose Given): Lidocaine used for local infiltration of skin, Injected in 3-5ml increments after negative blood aspiration, Bupivacaine 0.5% Dose:: 10mL and Exparel Dose:: 10mL Additives (Indicate Dose Given): None Ultrasound: Sterile probe cover and gel used Nerve Stimulator: Supplement to Ultrasound use and No twitch or parasthesia noted < 0.5 mA Paresthesia: Right Paresthesia Duration: Transient (Unclear if pressure or electrical in nature, needle repositioned and patient reported improved comfort) Procedure Tolerated: No Complications Procedure Outcome: Successful Procedure Comment: Wily Yañez CRNA asked to assist. Performed By: Anna Cotter
[2024-06-16] MEDS: ceFAZolin 2 GM/50 ML BAG IVPB (10:06)
[2024-06-16] MEDS: TRANEXAMIC ACID/SOD. CHL. 1,000 MG/100 ML BAG 600 MG IVPB (10:11)
[2024-06-16] MEDS: Bupivacaine 0.25% Pres-Free W/EPI 30 ML VIAL (10:43)
--- NOTE | 2024-06-16 11:30 | DI.RAD_ITS ---
Exam(s) XR SHOULDER RT COMPLETE 2+V EXAM: XR SHOULDER RT COMPLETE 2+V CLINICAL HISTORY: shoulder arthritis. TECHNIQUE: 2D digital imaging was performed. COMPARISON: CR XR SHOULDER RT COMPLETE 2+V from 06/01/2023 FINDINGS: Two postop views There is satisfactory position alignment of the components of the newly placed reverse prosthesis. N o fracture or loosening evident. IMPRESSION: Satisfactory postop appearance DATA REPOSITORY: RADIATION DOSE DELIVERED:
[2024-06-16] MEDS: ceFAZolin 1 GM/50 ML BAG IVPB (14:10)
--- NOTE | 2024-06-16 15:01 | W.ANESPOSTOP ---
Postoperative Evaluation Date, Time and Location Date Performed: 06/16/24 Time Performed: 15:01 Patient Location: Day Surgery Unit Vital Signs Most Recent Imported Vital Signs: Most Recent Vital Signs Temp Pulse Resp BP Pulse Ox 36.5 C 96 H 19 98/73 L 94 06/16/24 14:46 06/16/24 14:46 06/16/24 14:36 06/16/24 14:46 06/16/24 14:46 Pain Score Most Recent Pain Score: Most Recent Pain Score Pain Level 0 06/16/24 14:50 Assessment Mental Status: Awake (Alert & Oriented to Patient Baseline) Airway and Respiratory Function: Patent airway with normal (patient baseline) respiratory exam Cardiovascular Function: Hemodynamically Stable Hydration Status: Adequately Hydrated Nausea & Vomiting: No Nausea or Vomiting Pain: Pt. Denies Any Pain Peripheral Nerve Block: Regional nerve block not resolved at time of post operative discharge
[2024-06-16] MEDS: Lactobacillus Acidophilus CAP 1 CAP PO (16:21)
== END 2024-06-16 16:41 | disposition home or self-care (01) ==
LOC: SUR 07:20
PROVIDERS: PCP Family Medicine; Visit Provider Student in an Organized Health Care Education/Training Program
PROC: (CPT 23472; principal; 2024-06-16 09:15)
DX: M19.011 Primary osteoarthritis, right shoulder (principal); M75.21 Bicipital tendinitis, right shoulder; M75.111 Incomplete rotator cuff tear or rupture of right shoulder, not specified as traumatic
CPT/HCPCS: 23472; 23430; 76942; 73030; C9290; J0131; J0665; J0690; J1100; J1805; J2250; J2371; J2405; J2704; J3370

== ENCOUNTER 2024-06-27 15:41 | Outpatient (CLI) | payer OTHER, SELFPAY ==
--- NOTE | 2024-06-27 08:30 | DI.RAD_ITS ---
Exam(s) XR SHOULDER RT COMPLETE 2+V EXAM: XR SHOULDER RT COMPLETE 2+V CLINICAL HISTORY: F/U RIGHT RTSA. TECHNIQUE: 2D digital imaging was performed. COMPARISON: CR XR SHOULDER RT COMPLETE 2+V from 06/16/2024 FINDINGS: Two views There is continued satisfactory position alignment of the components of the recently placed reverse p rosthesis of the right shoulder. However, there is still air in the adjacent soft tissues including an air-fluid level. This may shun richard infection in the soft tissues. Surgery date was 06/16/2024. IMPRESSION: Soft tissue air-gas persists 11 days postop. Therefore suspect possible infectious process in the so ft tissues. DATA REPOSITORY: RADIATION DOSE DELIVERED:
== END 2024-06-27 15:42 | disposition home or self-care (01) ==
LOC: DIORS 15:42
PROVIDERS: PCP Family Medicine; Visit Provider Student in an Organized Health Care Education/Training Program
DX: M19.011 Primary osteoarthritis, right shoulder (principal)
CPT/HCPCS: 73030

== ENCOUNTER 2024-09-25 08:30 | Outpatient (CLI) | payer OTHER, SELFPAY ==
[2024-09-25 10:46] LABS: Hemoglobin A1C 5.3 % (<5.7)
[2024-09-25 10:54] LABS: ALT 21 U/L (16-63); AST 21 U/L (15-37); Albumin 3.8 g/dL (3.4-5.0); Alkaline Phosphatase 72 U/L (46-116); BUN 12 mg/dL (7-18); Calcium 9.2 mg/dL (8.5-10.1); Calculated LDL 79 mg/dL (<100); Chloride 103 mmol/L (98-107); Cholesterol 139 mg/dL (<200); Estimated GFR 84.57 (mL/min/1.73m2); Glucose 101 mg/dL (74-106); HDL Cholesterol 46 mg/dL (40-60); Potassium 3.6 mmol/L (3.5-5.1); Sodium 139 mmol/L (136-145); Total Protein 7.6 g/dL (6.4-8.2); Triglyceride 73 mg/dL (<150); Vitamin B12 396 pg/mL (193-986)
[2024-09-25 18:44] LABS: PSA, Screening 5.9 ng/mL (<=4.5)
== END 2024-09-25 08:31 | disposition home or self-care (01) ==
LOC: LOS 08:31
PROVIDERS: PCP Family Medicine; Referring Provider Family Medicine; Visit Provider Family Medicine
DX: K21.9 Gastro-esophageal reflux disease without esophagitis (principal); E11.9 Type 2 diabetes mellitus without complications; I10 Essential (primary) hypertension; Z12.5 Encounter for screening for malignant neoplasm of prostate; Z23 Encounter for immunization; R63.8 Other symptoms and signs concerning food and fluid intake; M19.011 Primary osteoarthritis, right shoulder
CPT/HCPCS: 36415; 80053; 80061; 84153; 82607; 83036

== ENCOUNTER 2024-10-17 15:53 | Outpatient (CLI) | payer OTHER, SELFPAY ==
--- NOTE | 2024-10-17 08:11 | DI.RAD_ITS ---
Exam(s) XR SHOULDER RT COMPLETE 2+V EXAM: XR SHOULDER RT COMPLETE 2+V CLINICAL HISTORY: F/U RIGHT RTSA. TECHNIQUE: 2D digital imaging was performed. Two images were obtained. Grashey and Y views were obt ained. COMPARISON: CR XR SHOULDER RT COMPLETE 2+V from 06/27/2024 FINDINGS: BONES: There are stable post operative changes of a right reverse total shoulder arthroplasty present . No fracture or dislocation. JOINTS: The orthopedic hardware is in good position. No evidence of hardware loosening. There are d egenerative changes seen at the acromioclavicular joint. SOFT TISSUE: Normal. IMPRESSION: Stable right reversed total shoulder arthroplasty. DATA REPOSITORY: RADIATION DOSE DELIVERED:
== END 2024-10-17 15:54 | disposition home or self-care (01) ==
LOC: DIORS 15:54
PROVIDERS: PCP Family Medicine; Visit Provider Student in an Organized Health Care Education/Training Program
DX: M19.011 Primary osteoarthritis, right shoulder (principal)
CPT/HCPCS: 73030

== ENCOUNTER 2025-01-01 12:42 | Outpatient (CLI) | payer OTHER, SELFPAY ==
[2025-01-01 21:58] LABS: PSA, Diagnostic 7.4 ng/mL (<=4.5)
== END 2025-01-01 12:43 | disposition home or self-care (01) ==
LOC: LBO 12:42
PROVIDERS: PCP Family Medicine; Visit Provider Nurse Practitioner Gerontology
DX: R97.20 Elevated prostate specific antigen [PSA] (principal); Z80.42 Family history of malignant neoplasm of prostate
CPT/HCPCS: 36415; 84153

== ENCOUNTER 2025-02-15 13:56 | Outpatient (REF) | payer OTHER, SELFPAY ==
--- NOTE | 2025-02-15 13:30 | PROST_PTH ---
PATIENT: Robert Ramires LOC: [facility] U#:[id number] AGE/SX: 65/M ROOM: RE02/15/[address]: Harjinder Willams MD : 1960 BED: DIS: 02/15/2025 SPEC #: [id number] RECD: 02/15/25 17:46 STATUS: JEFFERY RE #: [id number] EILEEN: 02/15/25 13:[address]: Harjinder Willams DEPT: Surgical Specimen RECD BY: Jill Duggan ENTERED: 02/15/25 17:48 SP TYPE: PROST OTHR DR: Svitlana Norton MD, DC Tissues: 1 - PROSTATE NEEDLE BIOPSY 2 - PROSTATE NEEDLE BIOPSY 3 - PROSTATE NEEDLE BIOPSY 4 - PROSTATE NEEDLE BIOPSY 5 - PROSTATE NEEDLE BIOPSY 6 - PROSTATE NEEDLE BIOPSY 7 - PROSTATE NEEDLE BIOPSY 8 - PROSTATE NEEDLE BIOPSY 9 - PROSTATE NEEDLE BIOPSY 10 - PROSTATE NEEDLE BIOPSY 11 - PROSTATE NEEDLE BIOPSY 12 - PROSTATE NEEDLE BIOPSY Procedures: GROSS AND MICRO LEVEL 4 Comments: [id number]
== END 2025-02-15 13:57 | disposition home or self-care (01) ==
LOC: LBN 13:56
PROVIDERS: PCP Family Medicine; Visit Provider Urology
DX: R97.20 Elevated prostate specific antigen [PSA] (principal); N40.0 Benign prostatic hyperplasia without lower urinary tract symptoms; Z80.42 Family history of malignant neoplasm of prostate
CPT/HCPCS: 88305

== ENCOUNTER 2025-06-05 10:58 | Outpatient (CLI) | payer OTHER, SELFPAY ==
--- NOTE | 2025-06-05 07:45 | DI.RAD_ITS ---
Exam(s) XR SHOULDER RT COMPLETE 2+V EXAM: XR SHOULDER RT COMPLETE 2+V CLINICAL HISTORY: F/U RIGHT RTSA. TECHNIQUE: 2D digital imaging was performed. Three images were obtained. Axillary, Y and Grashey views were obtained. COMPARISON: CR XR SHOULDER RT COMPLETE 2+V from 10/17/2024 FINDINGS: BONES: There are stable post operative changes of a right reverse total shoulder arthroplasty present. No fracture or dislocation. JOINTS: The orthopedic hardware is in good position. No evidence of hardware loosening. There are degenerative changes seen at the acromioclavicular joint. SOFT TISSUE: Normal. IMPRESSION: Stable right total reverse shoulder arthroplasty. DATA REPOSITORY: RADIATION DOSE DELIVERED:
== END 2025-06-05 10:59 | disposition home or self-care (01) ==
LOC: DIORS 10:58
PROVIDERS: PCP Family Medicine; Visit Provider Student in an Organized Health Care Education/Training Program
DX: M19.011 Primary osteoarthritis, right shoulder (principal); Z96.611 Presence of right artificial shoulder joint
CPT/HCPCS: 73030

== ENCOUNTER 2025-09-03 11:29 | Day surgery (SDC) | payer OTHER, SELFPAY ==
[2025-09-03] VITALS (17 sets, daily range): BP systolic 102–145; BP diastolic 71–104; PULSE 79–102; RESP 12–18; TEMP 36.1–36.6; O2SAT 94–98; BMI 36.2
--- NOTE | 2025-09-03 10:24 | PDOC.DSDIS_ITS ---
Date of service: 09/03/25 Discharge Plan Disposition Patient Disposition: Home Condition: Stable Discharge Details Attending Provider: Netta Sherman Primary Care Provider: Svitlana Norton Home Meds and New Rx's Prescriptions: New hydrocodone-acetaminophen 5-325 mg tablet 1 tab PO Q6H PRNQty: 10 0RF ibuprofen 800 mg tablet 800 mg PO TID PRNQty: 21 0RF Continued tirzepatide (weight loss) 10 mg/0.5 mL pen injector 10 mg subcut QWEEK Qty: 6 5RF losartan-hydrochlorothiazide 100-25 mg tablet 1 tab PO QAM Qty: 90 5RF amlodipine 5 mg tablet 5 mg PO DAILY Qty: 90 6RF omeprazole 20 mg capsule,delayed release(DR/EC) 20 mg PO DAILY PRN (Reason: gerd) Qty: 90 4RF acetaminophen 500 mg tablet 1,000 mg PO Q8H PRN (Reason: pain) Qty: 60 3RF Discharge Instructions Additional Instructions: Additional Instructions: Shower in 24 hours. Wash gently over skin glue with soapy hands, rinse, pat dry. Don't peel glue or submerge incisions under water. Do not clean the glue with rubbing alcohol or any solvents beyond your regular soap/body wash and water. The glue will start to come off on its own in about 2 weeks. Ok to walk, climb stairs, and resume normal activities of daily living. Do not lift/push/pull more than 20lb for 4 weeks. Do not exercise until cleared by surgeon in office. Swelling and bruising in the groin and scrotum is normal and expected. You may even notice an eggplant-like change to the scrotum on the side(s) of the repair. This is harmless and will improve over time. Elevate the scrotum with washcloth rolls while laying down, or gently ice the swollen areas for 2-4 minutes at a time if desired for comfort. Monitor yourself for constipation during recovery. Add a stool softener or laxative if no BM within 36 hours. Call or return for fever or incisional problems. Activity:: as above Shower/Bathe:: 24 hours Diet:: As Tolerated Stand Alone Forms: Anesthesia Discharge Inst., Anes.Nerve Block Instructions, Press [place] (DSU), Portal Information Referrals: Netta Sherman MD [ [facility] STAFF PHYSICIAN, Surgery] - 09/26/25 2:30 pm Discharge Orders Discharge Orders: Discharge Order (Routine); Ordered 09/03/25 Ordered By: Netta Sherman DS: Diagnosis Discharge Diagnosis (1) Left inguinal hernia: Status: Acute
[2025-09-03] MEDS: Lactated Ringers 1,000 ML 80 ML IV (12:25)
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
[2025-09-03] MEDS: ceFAZolin 2 GM/50 ML BAG IVPB (13:14)
[2025-09-03] MEDS: Bupivacaine 0.25% Pres-Free W/EPI 30 ML VIAL (13:56)
--- NOTE | 2025-09-03 15:16 | W.PM.OP ---
Operative Note Operative Note PRE-OP DIAGNOSIS: left inguinal hernia POST-OP DIAGNOSIS: same PROCEDURE: laparoscopic repair of left inguinal hernia with mesh SURGEON: Netta Sherman WAREHOUSE DISTRIBUTION SPECIALIST: Bienvenido Thompson ANESTHESIA TYPE: Local By Surgeon and General LMA/ETT Refer to Anesthesia Record ESTIMATED BLOOD LOSS: 60 PATHOLOGY: none sent COMPLICATIONS: None Implants: 3Dmax MID mesh, large left sided mesh used Procedure Description: This is a 65yo M with a left inguinal hernia that is symptomatic. He was seen in the office and scheduled for laparoscopic repair. On the day of surgery informed consent was confirmed after discussion of the procedure risks, benefits, alternatives, and expectations. The patient asked good questions and verbalized understanding of the plan. He was taken to the operating room The operating room he was placed supine on the operating table. SCDs were placed and all pressure points were padded appropriately general anesthesia was induced the abdomen was clipped prepped and draped in the usual sterile fashion. Timeout was performed. Local anesthetic was infiltrated into the skin and subcutaneous tissues at each port access site. A midline vertical incision was made below the umbilicus and the subcutaneous tissue was dissected down to the level of the fascia using cautery. The fascia was retracted to the left of the midline. The anterior rectus sheath was opened sharply and muscle-splitting technique was used to retract the muscle fibers over the peritoneum. A peon clamp was used to access the preperitoneal space down to the pubic bone. A Spacemaker balloon was inserted and directed at the pubic bone. Spacemaker balloon was inflated and deflated and the port advanced into the preperitoneal space. Insufflation to 15 mmHg was accomplished with carbon dioxide gas. Laparoscopy revealed no injury to the underlying structures. The balloon dissected the inferior epigastric vessels down onto the peritoneum, so they had to be lifted up to provide the correct surgical view. The preperitoneal space was developed with blunt forceps. Two 5 mm ports were placed in the midline under direct visualization. The pubic bone was cleared. The lateral wall was cleared. The hernia sac was noted high along the cord structures as an indirect inguinal hernia. The sac was dissected bluntly from the cord structures. There was a lot of dense scarring between the sac and the cord structures indicating chronicity. LigaSure device was used to aid in dissection of the sac off the cord. Once the sac was dissected free it was confirmed to be low and posterior in the preperitoneal space. A large sized 3D max MID mesh was selected for the repair. The mesh was introduced to the preperitoneal space and positioned over the direct and indirect spaces. It was tacked to the iliopubic tract at 3 points. There was adequate coverage of the direct and indirect space. There was no evidence of obturator or femoral hernia from this view. Hemostasis was assured with LigaSure and two clips on the inferior epigastric vein. The preperitoneal space was desufflated under direct visualization and the mesh lay flat at the repair site. Air introduced into the abdomen during freeing of the sac was let out by penetrating the peritoneum layer at the umbilicus and releasing the air. The anterior rectus sheath was reapproximated with an 0 Vicryl [id number] stitch. The skin at each port site was closed with simple interrupted subcuticular 4-0 Monocryl. The skin was washed and dried and Dermabond was applied to the incisions. All sponge and instrument counts were correct at the end the case. Jimenes catheter was removed. The patient tolerated the procedure well. He extubated in the operating room and transferred to the recovery room in stable condition. There were no complications. Date of Procedure: 09/03/25
--- NOTE | 2025-09-03 16:26 | W.ANESPOSTOP ---
Postoperative Evaluation Date, Time and Location Date Performed: 09/03/25 Time Performed: 16:26 Patient Location: Day Surgery Unit Vital Signs Most Recent Imported Vital Signs: Most Recent Vital Signs Temp Pulse Resp BP Pulse Ox 36.1 C L 80 16 115/80 95 09/03/25 15:52 09/03/25 15:52 09/03/25 15:52 09/03/25 15:52 09/03/25 15:52 Pain Score Most Recent Pain Score: Most Recent Pain Score Pain Level 3 09/03/25 15:52 Assessment Mental Status: Awake (Alert & Oriented to Patient Baseline) Airway and Respiratory Function: Patent airway with normal (patient baseline) respiratory exam Cardiovascular Function: Hemodynamically Stable Hydration Status: Adequately Hydrated Nausea & Vomiting: No Nausea or Vomiting Pain: Pain is tolerable per patient Peripheral Nerve Block: Patient did not receive a nerve block
[2025-09-03] MEDS: oxyCODONE 5 MG TAB PO (16:41)
== END 2025-09-03 17:37 | disposition home or self-care (01) ==
LOC: SUR 11:30
PROVIDERS: PCP Family Medicine; Visit Provider Surgery
PROC: (CPT 49650; principal; 2025-09-03 12:45)
DX: K40.90 Unilateral inguinal hernia, without obstruction or gangrene, not specified as recurrent (principal); I10 Essential (primary) hypertension; E66.9 Obesity, unspecified; Z68.36 Body mass index [BMI] 36.0-36.9, adult
CPT/HCPCS: 49650; C1781; J0131; J0690; J1100; J2003; J2371; J2405; J2704